=== PATIENT | male | born 1960 | race Caucasian/White ===

== ENCOUNTER 2020-01-10 01:51 | Inpatient (IN) | payer BC, SELFPAY ==
[2020-01-10] VITALS (15 sets, daily range): BP systolic 93–144; BP diastolic 60–81; PULSE 65–94; RESP 16–20; TEMP 36.3–38; O2SAT 93–100; BMI 32.9
--- NOTE | ~2020-01-10 | CT_ITS ---
EXAMINATION: CT brain wo con EXAM DATE: 01/10/2020 14:50 INDICATION: Persistent headache for 3 days. TECHNIQUE: Spiral CT of the head was performed without contrast. Axial, coronal and sagittal images were reviewed. The dose-length product (DLP) for this examination was 605.33 mGy-cm. The exposure w as tailored according to patient size, and iterative reconstruction (ASIR) was used as additional dos e reduction technique. There is no prior study for comparison. FINDINGS: There is no acute intraparenchymal hemorrhage. No evidence of intraparenchymal brain mass lesion. No evidence of acute infarction. There is no mass effect or midline shift. The ventricles are normal in size. There are no extra-axial collections. There are no acute calvarial fractures. T he orbits are unremarkable. Soft tissue is unremarkable. The visualized sinuses and mastoid air vincenzo ls are well aerated. IMPRESSION: 1. No acute intracranial findings. Reviewed, dictated and finalized at location B. CAL PARASITOLOGIST
--- NOTE | ~2020-01-10 | XR_ITS ---
EXAMINATION: XR chest 2V DATE: 01/11/2020 09:40 INDICATION: Cough TECHNIQUE: PA and lateral views of the chest are obtained. COMPARISON: 01/10/2020 FINDINGS: Right basilar airspace opacities have improved. There is no pleural effusion or pneumothora x. The cardiomediastinal silhouette is normal. There is mild thoracic spondylosis. IMPRESSION: 1. Improving airspace opacities of the right lower lung zone, consistent with resolving atelectasis o r pneumonia. Reviewed, dictated and finalized at location A. CONSERVATIONIST IMPRESSION: 1. Improving airspace opacities of the right lower lung zone, consistent with r esolving atelectasis or pneumonia.
--- NOTE | ~2020-01-10 | XR_ITS ---
EXAMINATION: XR chest 1V portable DATE: 01/10/2020 04:28 INDICATION: Cough and fever. TECHNIQUE: A single frontal view of the chest was obtained. COMPARISON: None. FINDINGS: There are mild airspace opacities in right lower lung zone. No pleural effusion or pneumoth orax. The heart size is normal. IMPRESSION: 1. Mild airspace opacities in right lower lung zone, consistent with atelectasis versus pneumonia. Reviewed, dictated and finalized at location A. EMENTATION ADVISOR IMPRESSION: 1. Mild airspace opacities in right lower lung zone, consistent with atelectasi s versus pneumonia.
--- NOTE | 2020-01-10 02:21 | ED.GENADULT ---
HPI - General Adult General Chief complaint: Unspecified Stated complaint: cant sleep Source: patient Mode of arrival: ambulatory Limitations: no limitations History of Present Illness HPI narrative: This 59-year-old male became ill the evening of 01/07 with insomnia,dull frontal headache, fever, cough, rhinorrhea, chills, insomnia, abdominal pain, nausea, and myalgias. He was exposed to influenza the day before the onset of his symptoms. Pt has not slept in 3 nights, c/o being desperate to sleep. Ibuprofen has not relieved his symptoms. He describes his headache as massive , close to the worst headache he's ever had. There are no associated symptoms of photophobia or neck pain. He has no hx of recurrent headaches. His cough has a barky quality, is unproductive and assoc. with feeling SOB. OTC cold medicines have not helped.He has no hx of asthma. His nausea has kept him for eating and drinking. There has been no vomiting. He has had trouble getting even small sips of fluid. There have been several loose stools over the past few days. His temp has been measured at 101, but tactial temp has felt higher. Related Data Home Medications Medication Instructions Recorded Confirmed atorvastatin 10 mg PO DAILY 01/10/20 01/10/20 levothyroxine 125 mcg PO DAILY 01/10/20 01/10/20 tamsulosin 0.4 mg PO DAILY 01/10/20 01/10/20 Allergies Allergy/AdvReac Type Severity Reaction Status Date / Time No Known Allergies Allergy Verified 02/10/18 16:09 Review of Systems Constitutional: Constitutional: Reports no additional constitutional complaints ENT: Reports system reviewed and no additional complaints, except as documented Cardiovascular: Cardiovascular: Denies chest pain Respiratory: Respiratory: Reports dyspnea Gastrointestinal: Gastrointestinal: Denies heartburn Genitourinary: Genitourinary: Denies dysuria Musculoskeletal: Musculoskeletal: Denies arthralgias and Denies joint swelling Integumentary/Breasts: Skin/Breast: Denies rash Neurologic: Reports system reviewed and no additional complaints, except as documented Psychiatric: Psychiatric: Denies anxiety and Denies depression Hematologic/Lymphatic: Hematologic/Lymphatic: Denies easy bleeding Allergic/Immunologic: Comments: no seasonal rhinorrhea PMFSH Past Medical History Medical History (Updated 01/10/20 @ 05:57 by Alphonse Wallis MD) Carpal tunnel syndrome Hyperlipidemia Social History Social History (Updated 01/10/20 @ 05:45 by Alphonse Wallis MD) Smoking status: Never smoker Gender identity (if verbalized by the patient): Male Exam Narrative: Exam Narrative: Laying on his side appears to be in pain. Const: General: No diaphoretic Orientation/consciousness: patient oriented x3 Limitations: No altered mental status HENMT: General nose exam: Nasal discharge present Face and sinus: no sinus tenderness Mouth: Yes Normal oral and palatal mucosa present and Yes moist mucous membranes Eyes: Conjunctivae: conjunctivae normal Neck: Neck: no lymphadenopathy Resp: Auscultation: clear to auscultation bilaterally and no rales Cardio: Rhythm: regular rhythm GI: GI Palp: Yes Soft to palpation, No Guarding due to palpation present (GI), No Palpable mass present and No Rebound tenderness present : General: No no CVA tenderness Skin: Rashes: no rashes Neuro: General: patient oriented x3 Extrem: General: normal to inspection and no pedal edema Psych: Affect: Anxious affect present Thought content: Yes Normal thought content present Course Course Emergency Course: Less coughing after nebulized albuterol treatment. After second neb tx. lungs sounds improved. Rales heard in both mid-posterior lung reyes. C/o 8/10 headache, 10/10 mid-abdominal cramping pain which gets worse with coughing. Influenza A positive. Vital Signs Vital signs: Vital Signs Temperature 38.0 C H 01/10/20 01:51 Pulse Rate 92 01/10/20 01:51 Respira
[2020-01-10] MEDS: SODIUM CHLORIDE 0.9% IV 1,000 ML 999 ML IV CONT ×3 (02:32→03:56)
[2020-01-10] MEDS: KETOROLAC 30 MG/ML VIAL (*BKC) IV PUSH (02:33)
[2020-01-10] MEDS: IPRATROPIUM 0.5 MG/ALBUTEROL SULFATE 2.5 MG AMPUL.NEB 3 ML INHALATION ×5 (02:33→23:52)
[2020-01-10] MEDS: ONDANSETRON INJ 4 MG/2 ML VIAL IV PUSH ×2 (02:33→12:05)
[2020-01-10 02:35] LABS: Basophils Absolute Auto 0.03 K/mm3 (0.00-0.10); Basophils Percent Auto 0.4 % (0.0-1.0); Eosinophils Absolute Auto 0.05 K/mm3 (0.02-0.50); Eosinophils Percent Auto 0.7 % (1.0-6.0); Hematocrit 49.6 % (40.0-54.0); Hemoglobin 16.6 g/dL (14.0-18.0); Immature Granulocyte Absolute 0.02 K/mm3 (0.00-0.00); Immature Granulocyte Percent A 0.3 % (0.0-0.0); Lymphocytes Absolute Auto 1.17 K/mm3 (1.10-4.50); Lymphocytes Percent Auto 15.8 % (18.0-42.0); Mean Corpuscular HGB Conc 33.5 g/dL (32.0-36.0); Mean Corpuscular Volume 89.5 fL (78.0-102.0); Mean Platelet Volume 10.3 fl (8.7-11.0); Monocytes Absolute Auto 0.85 K/mm3 (0.10-0.90); Monocytes Percent Auto 11.5 % (2.0-11.0); Neutrophils Absolute Auto 5.3 K/mm3 (1.7-7.2); Neutrophils Percent Auto 71.3 % (50.0-70.0); Platelet Count Result 180 K/mm3 (150-420); Red Blood Count 5.54 M/mm3 (4.70-6.10); Red Cell Distribution Width 12.9 % (11.6-14.4); White Blood Count 7.4 K/mm3 (4.8-10.8)
[2020-01-10 02:53] LABS: Alanine Aminotransferase 45 U/L (16-63); Albumin Level 3.4 g/dL (3.4-5.0); Alkaline Phosphatase 52 U/L (46-116); Anion Gap 14.4 mmol/L (7-16); Aspartate Amino Transferase 34 U/L (15-37); Bilirubin,Total 0.5 mg/dL (0.00-1.00); Blood Urea Nitrogen 23 mg/dL (7-18); Calcium 8.1 mg/dL (8.5-10.1); Carbon Dioxide 26 mmol/L (21-32); Chloride 101 mmol/L (98-108); Estimated Glomerular Filt Rate > 60; Glucose 129 mg/dL (70-99); Osmolality Calculated 291 mOsm/kg (285-295); Potassium 3.4 mmol/L (3.5-5.1); Sodium 138 mmol/L (136-145); Total Protein 7.1 g/dL (6.4-8.2)
[2020-01-10 03:07] LABS: Influenza Control Valid (Valid)
[2020-01-10] MEDS: FAMOTIDINE 20 MG/ISO 50 ML 20 MG/50 ML BAG 100 MG IVPB (03:10)
--- NOTE | 2020-01-10 03:10 | PC.NURSE ---
Read back verbal order Dr Wallis: Repeat Zofran 4mg IVP at this time.
[2020-01-10] MEDS: ONDANSETRON INJ 4 MG/2 ML VIAL (03:15)
--- NOTE | 2020-01-10 03:38 | PC.NURSE ---
Dr Riggs speaking with Dr Wallis at this time per [facility] hospitalist request.
[2020-01-10] MEDS: MORPHINE SULFATE 4 MG/ML INJ IV PUSH (03:56)
[2020-01-10] MEDS: LORAZEPAM INJ 2 MG/ML VIAL 0.5 MG IV PUSH (03:56)
[2020-01-10 04:07] LABS: Lipase 163 U/L (73-393)
[2020-01-10] MEDS: methylPREDNISolone SOD SUCC 40 MG VIAL 60 MG IV PUSH (04:52)
--- NOTE | 2020-01-10 04:57 | PC.NURSE ---
Pt sitting on gurney talking with . Appears relaxed. NADN. VSS. When asked about pain, pt states pain is unchanged. Dr Wallis aware.
--- NOTE | 2020-01-10 06:14 | ADMGEN ---
This patient, Neal Payne, was admitted to 2nd Floor Room 209-1. Patient/family oriented to hospital policies and general routines including ID bracelet, bed and alarms, visiting hours, pain management, procedures, bathroom and other care routines, personal items, smoking policy, room service/diet, and visiting hours. Valuables include glasses, gold colored ring and cell phone. Information on how to activate the Rapid Response Team has been discussed. Patient/Family are encouraged to report perceived risks to care and to ask questions if they do not understand what they are told or what they should do.
[2020-01-10] MEDS: LEVOTHYROXINE SODIUM 25 MCG TABLET 125 MCG PO (06:37)
--- NOTE | 2020-01-10 06:57 | ED.GENADULT ---
HPI - General Adult General Chief complaint: Unspecified Stated complaint: cant sleep Source: patient Mode of arrival: ambulatory Limitations: no limitations Related Data Home Medications Medication Instructions Recorded Confirmed atorvastatin 10 mg PO DAILY 01/10/20 01/10/20 levothyroxine 125 mcg PO DAILY 01/10/20 01/10/20 tamsulosin 0.4 mg PO DAILY 01/10/20 01/10/20 Allergies Allergy/AdvReac Type Severity Reaction Status Date / Time No Known Allergies Allergy Verified 02/10/18 16:09 [facility] Past Medical History Medical History (Updated 01/10/20 @ 05:57 by Alphonse Wallis MD) Carpal tunnel syndrome Hyperlipidemia Social History Social History (Updated 01/10/20 @ 05:45 by Alphonse Wallis MD) Smoking status: Former smoker Tobacco type: cigarettes Alcohol intake: former Substance use: never Gender identity (if verbalized by the patient): Male Spiritual care concerns: No Agree to blood products: No Course Vital Signs Vital signs: Vital Signs Temperature 38.0 C H 01/10/20 01:51 Pulse Rate 92 01/10/20 01:51 Respiratory Rate 20 01/10/20 01:51 Blood Pressure 128/77 01/10/20 01:51 Pulse Oximetry 94 01/10/20 01:51 Temperature 36.7 C 01/10/20 06:28 Pulse Rate 90 01/10/20 06:28 Respiratory Rate 20 01/10/20 06:28 Blood Pressure 112/71 01/10/20 06:28 Pulse Oximetry 96 01/10/20 06:28 Medical Decision Making Vital Signs Vital Signs: Vital Signs Temperature 38.0 C H 01/10/20 01:51 Pulse Rate 92 01/10/20 01:51 Respiratory Rate 20 01/10/20 01:51 Blood Pressure 128/77 01/10/20 01:51 Pulse Oximetry 94 01/10/20 01:51 Temperature 36.7 C 01/10/20 06:28 Pulse Rate 90 01/10/20 06:28 Respiratory Rate 20 01/10/20 06:28 Blood Pressure 112/71 01/10/20 06:28 Pulse Oximetry 96 01/10/20 06:28 Lab Data Result diagrams: 01/10/20 02:31 01/10/20 02:31 Labs: Lab Results 01/10/20 01/10/20 01/10/20 Range/Units 02:31 02:31 02:31 WBC 7.4 (4.8-10.8) K/mm3 RBC 5.54 (4.70-6.10) M/mm3 Hgb 16.6 (14.0-18.0) g/dL Hct 49.6 (40.0-54.0) % MCV 89.5 (78.0-102.0) fL MCH 30.0 (27.0-31.0) pg MCHC 33.5 (32.0-36.0) g/dL RDW 12.9 (11.6-14.4) % Plt Count 180 (150-420) K/mm3 MPV 10.3 (8.7-11.0) fl Immature Gran % (Auto) 0.3 H (0.0-0.0) % Neut % (Auto) 71.3 H (50.0-70.0) % Lymph % (Auto) 15.8 L (18.0-42.0) % [place] % (Auto) 11.5 H (2.0-11.0) % Eos % (Auto) 0.7 L (1.0-6.0) % Baso % (Auto) 0.4 (0.0-1.0) % Lymph # (Auto) 1.17 (1.10-4.50) K/mm3 [place] # (Auto) 0.85 (0.10-0.90) K/mm3 Eos # (Auto) 0.05 (0.02-0.50) K/mm3 Baso # (Auto) 0.03 (0.00-0.10) K/mm3 Abs Immat Gran (auto) 0.02 H (0.00-0.00) K/mm3 Absolute Neuts (auto) 5.3 (1.7-7.2) K/mm3 Absolute Nucleated RBC 0.00 (0.00-0.00) K/mm3 Nucleated RBC % 0.0 (0-0.0) % Sodium 138 (136-145) mmol/L Potassium 3.4 L (3.5-5.1) mmol/L Chloride 101 (98-108) mmol/L Carbon Dioxide 26 (21-32) mmol/L Anion Gap 14.4 (7-16) mmol/L BUN 23 H (7-18) mg/dL Creatinine 1.17 (0.70-1.30) mg/dL Estim Creat Clear Calc Not Reportable Estimated GFR > 60 (59 - ) Glucose 129 H (70-99) mg/dL Calculated Osmolality 291 (285-295) mOsm/kg Lactic Acid (0.4-2.0) mmol/L Calcium 8.1 L (8.5-10.1) mg/dL Total Bilirubin 0.5 (0.00-1.00) mg/dL AST 34 (15-37) U/L ALT 45 (16-63) U/L Alkaline Phosphatase 52 (46-116) U/L Total Protein 7.1 (6.4-8.2) g/dL Albumin 3.4 (3.4-5.0) g/dL Lipase (73-393) U/L Influenza Type A Ag Positive A (Negative) Influenza Type B Ag Negative (Negative) Grp A Beta Strep Ag Negative 01/10/20 01/10/20 Range/Units 02:31 02:31 WBC (4.8-10.8) K/mm3 RBC (4.70-6.10) M/mm3 Hgb (14.0-18.0) g/dL Hct (40.0-54.0) % MCV (78.0-102.0) fL MCH
--- NOTE | 2020-01-10 07:30 | PC.NURSE ---
NS@100ml/hr started. Instructed patient to sit up, better inflammation of lungs. Denies abd pain. PRN tylenol given for headache. 100%RA
[2020-01-10] MEDS: SODIUM CHLORIDE 0.9% IV 1,000 ML 100 ML IV CONT (07:48)
[2020-01-10] MEDS: ACETAMINOPHEN 500 MG TABLET 1000 MG PO (07:48)
--- NOTE | 2020-01-10 08:30 | PC.NURSE ---
NS@100ml/hr continues. Denies abd pain
[2020-01-10] MEDS: POTASSIUM CHLORIDE 10 MEQ TABLET PO ×2 (08:57→16:14)
[2020-01-10] MEDS: ATORVASTATIN 10 MG TABLET PO (08:57)
[2020-01-10] MEDS: TAMSULOSIN HCL 0.4 MG CAPSULE PO (08:57)
[2020-01-10] MEDS: ENOXAPARIN 40 MG/0.4 ML SYRINGE SUB-Q (08:57)
[2020-01-10] MEDS: PANTOPRAZOLE SODIUM IV 40 MG VIAL IV PUSH ×2 (08:58→10:35)
--- NOTE | 2020-01-10 09:08 | PC.NURSE ---
Instructed patient to sit up as much as possible. Pneumonia diagnosis need to be up moving around. Patient sat up for breakfast went back to bed. Ambulated to restroom x2. Gait steady. in room.
--- NOTE | 2020-01-10 09:30 | PC.NURSE ---
[id number] continued. C/O headache. Notified Rachel Mathur YARN PREPARATION SUPERVISOR. Denies abd pain.
[2020-01-10] MEDS: methylPREDNISolone SOD SUCC 125 MG VIAL 60 MG IV PUSH ×2 (10:34→20:12)
[2020-01-10] MEDS: TRAMADOL HCL 50 MG TABLET PO ×2 (10:34→20:13)
--- NOTE | 2020-01-10 10:56 | PC.NURSE ---
Solumedrol given. NS@100ml/hr continued. New order for Tramadol for headache, IV antibiotics started. Denies abd pain.
--- NOTE | 2020-01-10 13:50 | PM.IMHP ---
H&P: HPI History of Present Illness Chief complaint: cant sleep Narrative: Neal Payne is a 59 year old male that presented to the ED with complaints of frontal headache, fever, cough, chills, Shortness of breathinsomnia pain, nausea and rhinorrhea. he has a past medical history of hyperlipidemia, hypothyroidism, and carpal tunnel syndrome. According to patient's he was exposed to influenza a few days before his onset of symptoms. Patient has had insomnia 3 nights due to symptoms. while he was at home he did take ibuprofen and [id number] cold medicine with no relief. He does rate his headache at 10/10. He does not have a history of having headaches. patient does note that he has a productive cough with yellowish sputum and his throat continues to be sore. vital signs 37.0, 82, 60, 100% on room air blood pressure 122/74. while patient was in the ER he tested positive for influenza a and his chest x-ray is positive for pneumonia. Patient was started on azithromycin and Rocephin, steroids, and nebulizers.Patient denies SOB, CP, palpitation, extremity numbness, lightheadness, dizziness, constipation, diarrhea, or chills or fever. Review of Systems Review of Systems: Narrative: General: A well-developed, well-nourished male sitting up in bed no acute distress. HEENT: Normocephalic, atraumatic. PERRL, EOMI. Sclerae anicteric. Oral mucosa moist. Oropharynx clear. Neck: Supple. Cardiovascular: Regular rate and rhythm with S1-S2. Gastrointestinal: Abdomen is soft, nontender, and nondistended with positive bowel sounds. No organomegaly. Skin: Warm, dry, and slightly pale.. No rash or lesions on limited exam. Extremities: No cyanosis, clubbing, or edema. Radial and pedal pulses intact. Neurological: Alert. Cranial nerves 2-12 are grossly intact. No gross focal deficits to casual conversation. Psychiatric: Pleasant and cooperative with normal mood and affect. Judgment and insight intact. All systems reviewed & are unremarkable except as noted in HPI and below ENT: Denies vertigo, Denies dizziness, Reports headache(s) and Reports sore throat Respiratory: Respiratory: Reports chest congestion, Reports cough, Denies hemoptysis and Denies dyspnea PMFSH Past Medical History Medical History (Updated 01/10/20 @ 05:57 by Alphonse Wallis MD) Carpal tunnel syndrome Hyperlipidemia Social History Social History (Updated 01/10/20 @ 05:45 by Alphonse Wallis MD) Smoking status: Former smoker Tobacco type: cigarettes Alcohol intake: former Substance use: never Gender identity (if verbalized by the patient): Male Spiritual care concerns: No Agree to blood products: No Meds Home Medications and Allergies Home Medications Medication Instructions Recorded Confirmed Type albuterol sulfate 2 puff INHALATION QID PRN #6.7 gm 01/10/20 Rx atorvastatin 10 mg PO DAILY 01/10/20 01/10/20 History levothyroxine 125 mcg PO DAILY 01/10/20 01/10/20 History pantoprazole 40 mg PO QAM #14 tablet 01/10/20 Rx prednisone 40 mg PO DAILY 5 Days #10 tablet 01/10/20 Rx tamsulosin 0.4 mg PO DAILY 01/10/20 01/10/20 History Allergies Allergy/AdvReac Type Severity Reaction Status Date / Time No Known Allergies Allergy Verified 02/10/18 16:09 Vital Signs Vital Signs - 24 hr 01/10/20 01:51 01/10/20 03:54 01/10/20 04:53 Temperature 38.0 C H Pulse Rate 92 84 82 Respiratory Rate 20 20 20 Blood Pressure 128/77 114/63 Pulse Oximetry 94 93 01/10/20 04:58 01/10/20 05:18 01/10/20 05:25 Temperature Pulse Rate 82 90 93 Respiratory Rate 18 20 20 Blood Pressure 109/62 122/67 Pulse Oximetry 100 96 96 01/10/20 06:28 01/10/20 08:00 01/10/20 12:00 Temperature 36.7 C 37.0 C 36.3 C L Pulse Rate 90 82 85 Respiratory Rate 20 16 18 Blood Pressure 112/71 122/74 138/77 Pulse Oximetry 96 100 95 01/10/20 12:35 01/10/20 12:42 Temperature Pulse Rate 70 70 Respiratory Rate 16 16 Blood Pressure
--- NOTE | 2020-01-10 14:06 | PC.NURSE ---
Patient transported off of floor for CT scan
--- NOTE | 2020-01-10 14:22 | PC.NURSE ---
Patient transported back to floor, via wheelchair
[2020-01-10] MEDS: BENZONATATE 100 MG CAPSULE 200 MG PO (16:14)
[2020-01-10] MEDS: TEMAZEPAM 15 MG CAPSULE PO (20:13)
[2020-01-10] MEDS: OSELTAMIVIR PHOSPHATE 75 MG CAP PO (20:14)
[2020-01-11] VITALS (7 sets, daily range): BP systolic 104–130; BP diastolic 57–74; PULSE 58–76; RESP 16–18; TEMP 36.2–36.6; O2SAT 93–96
--- NOTE | 2020-01-11 00:30 | PC.NURSE ---
pt given fresh ice water, ice cream and a Popsicle, denies any complaints at this time
[2020-01-11] MEDS: methylPREDNISolone SOD SUCC 125 MG VIAL 60 MG IV PUSH ×3 (04:01→20:54)
[2020-01-11 05:34] LABS: Mean Corpuscular HGB Conc 33.3 g/dL (32.0-36.0); Mean Corpuscular Hemoglobin 29.9 pg (27.0-31.0); Mean Corpuscular Volume 89.6 fL (78.0-102.0); Platelet Count Result 188 K/mm3 (150-420); Red Blood Count 4.69 M/mm3 (4.70-6.10); Red Cell Distribution Width 12.9 % (11.6-14.4); White Blood Count 12.2 K/mm3 (4.8-10.8)
[2020-01-11] MEDS: LEVOTHYROXINE SODIUM 25 MCG TABLET 125 MCG PO (05:59)
[2020-01-11 06:01] LABS: Blood Urea Nitrogen 23 mg/dL (7-18); Calcium 8.1 mg/dL (8.5-10.1); Carbon Dioxide 25 mmol/L (21-32); Chloride 105 mmol/L (98-108); Estimated CRCL calculation 80 ml/min; Estimated Glomerular Filt Rate > 60; Glucose 157 mg/dL (70-99); Osmolality Calculated 300 mOsm/kg (285-295); Sodium 142 mmol/L (136-145)
[2020-01-11] MEDS: ONDANSETRON INJ 4 MG/2 ML VIAL IV PUSH (06:49)
--- NOTE | 2020-01-11 09:10 | PC.NURSE ---
Patient taken down to xray to have chest xray via wheelchair by volunteer.
--- NOTE | 2020-01-11 09:25 | PC.NURSE ---
Patient back to room from xray.
[2020-01-11] MEDS: ENOXAPARIN 40 MG/0.4 ML SYRINGE SUB-Q (09:56)
[2020-01-11] MEDS: PANTOPRAZOLE SODIUM IV 40 MG VIAL IV PUSH (09:56)
[2020-01-11] MEDS: ATORVASTATIN 10 MG TABLET PO (09:57)
[2020-01-11] MEDS: TAMSULOSIN HCL 0.4 MG CAPSULE PO (09:57)
[2020-01-11] MEDS: BENZONATATE 100 MG CAPSULE 200 MG PO ×3 (09:57→17:26)
[2020-01-11] MEDS: OSELTAMIVIR PHOSPHATE 75 MG CAP PO ×2 (09:57→20:55)
[2020-01-11] MEDS: POTASSIUM CHLORIDE 10 MEQ TABLET PO ×2 (09:57→17:26)
[2020-01-11] MEDS: PROCHLORPERAZINE EDISYLATE 10 MG/2 ML VIAL IV PUSH (10:26)
--- NOTE | 2020-01-11 11:00 | PC.NURSE ---
Patient had episode of anxiety/panic attack. N.O. Received for ativan IVP. This nurse went to go give patient ativan, patient states he thinks the anxiety has passed and he is okay now. States he doesnt want any medication. Nurse notified patient if he starts feeling anxious again to let her know and she can give ativan.
[2020-01-11] MEDS: ACETAMINOPHEN 500 MG TABLET 1000 MG PO (11:24)
--- NOTE | 2020-01-11 14:12 | PM.IMPN ---
Progress Note: A&P Assessment and Plan (1) Pneumonia: Qualifiers: Laterality: right Lung location: middle lobe of lung Pneumonia type: due to unspecified organism Qualified Code(s): J18.9 - Pneumonia, unspecified organism <KADI Dougherty - Last Filed: 01/11/20 14:20> Code(s): J18.9 - Pneumonia, unspecified organism <KIMBERLEY DoughertyC - Last Filed: 01/11/20 14:20> Status: Acute <KIMBERLEY DoughertyC - Last Filed: 01/11/20 14:20> Assessment and Plan: chest x-ray indicates 1. Mild airspace opacities in right lower lung zone, consistent with atelectasis versus pneumonia. continue antibiotic Rocephin and azithromycin blood culture pending white count within normal limits patient afebrile at this time continue cough suppressors, and decongestant. continue to monitor oxygen level CBC in a.m. <KADI Dougherty - Last Filed: 01/11/20 14:20> (2) Headache due to viral infection: Code(s): B34.9 - Viral infection, unspecified; R51 - Headache <KADI Dougherty - Last Filed: 01/11/20 14:20> Status: Acute <KADI Dougherty - Last Filed: 01/11/20 14:20> Assessment and Plan: resolved possibly secondary to influenza or pneumonia continue Tylenol, tramadol, [place], p.r.n. CT of the head No acute intracranial findings. will continue to monitor <KADI Dougherty - Last Filed: 01/11/20 14:20> (3) Hyperlipidemia: Code(s): E78.5 - Hyperlipidemia, unspecified <KADI Dougherty - Last Filed: 01/11/20 14:20> Status: Acute <KADI Dougherty - Last Filed: 01/11/20 14:20> Assessment and Plan: continue statins <SHAYY Dougherty-Kesha - Last Filed: 01/11/20 14:20> (4) Influenza A: Code(s): J10.1 - Influenza due to other identified influenza virus with other respiratory manifestations <Rachel MathurSHAYY-C - Last Filed: 01/11/20 14:20> Status: Acute <Rachel MathurSHAYY-C - Last Filed: 01/11/20 14:20> Assessment and Plan: tested positive for influenza a continue Tamiflu continue nebulizers, decongestants, and cough suppressants <Kumarkian StanleySHAYY Sutton-C - Last Filed: 01/11/20 14:20> (5) Dehydration: Code(s): E86.0 - Dehydration <Rachel MathurSHAYY-C - Last Filed: 01/11/20 14:20> Status: Acute <Rachel MathurSHAYY-C - Last Filed: 01/11/20 14:20> Assessment and Plan: continue IV fluids encourage fluid intake BMP in a.m. <Kumarkian StanleySHAYY Sutton-C - Last Filed: 01/11/20 14:20> (6) Hypothyroid: Code(s): E03.9 - Hypothyroidism, unspecified <Rachel Rivera SHAYY Mathur-C - Last Filed: 01/11/20 14:20> Status: Acute <Rachel AngelSHAYY Sutton-C - Last Filed: 01/11/20 14:20> Assessment and Plan: continue Synthroid <Kumarkian StanleySHAYY Sutton-C - Last Filed: 01/11/20 14:20> (7) Nausea: Code(s): R11.0 - Nausea <Rachel AngelSHAYY Sutton-C - Last Filed: 01/11/20 14:20> Status: Acute <Rachel AngelSHAYY Sutton-C - Last Filed: 01/11/20 14:20> Assessment and Plan: has not improved continue Zofran and Compazine <Kumarkian StanleySHAYY Sutton-C - Last Filed: 01/11/20 14:20> (8) Anxiety: Code(s): F41.9 - Anxiety disorder, unspecified <HSAYY Dougherty-C - Last Filed: 01/11/20 14:20> Status: Acute <Rachel KADI Sharma - Last Filed: 01/11/20 14:20> Assessment and Plan: continue p.r.n. Ativan <KADI Dougherty - Last Filed: 01/11/20 14:20> Subjective Date/time seen: 01/11/20 14:12 patient continues to complain of nausea /vomiting added Compazine to his regimen. He also noted that he felt short of breath, patient sat's 100% on room air. Will add Ativan to patient's regimen. Patient's appear to be more anxious. Patient does not feel stable enough to discharge today lobo
[2020-01-11] MEDS: TEMAZEPAM 15 MG CAPSULE PO (20:55)
[2020-01-12] VITALS: BP 117/68; PULSE 70; RESP 20; TEMP 36.2; O2SAT 93
--- NOTE | 2020-01-12 00:54 | PC.NURSE ---
Voided in urinal.
[2020-01-12 04:00] VITALS: BP 130/75; PULSE 74; RESP 20; TEMP 36.6; O2SAT 95
[2020-01-12] MEDS: methylPREDNISolone SOD SUCC 125 MG VIAL 60 MG IV PUSH (04:06)
[2020-01-12 05:47] LABS: Hematocrit 44.1 % (40.0-54.0); Hemoglobin 14.7 g/dL (14.0-18.0); Mean Corpuscular HGB Conc 33.3 g/dL (32.0-36.0); Mean Corpuscular Hemoglobin 29.9 pg (27.0-31.0); Mean Corpuscular Volume 89.6 fL (78.0-102.0); Mean Platelet Volume 11.1 fl (8.7-11.0); Platelet Count Result 202 K/mm3 (150-420); Red Blood Count 4.92 M/mm3 (4.70-6.10); Red Cell Distribution Width 12.9 % (11.6-14.4); White Blood Count 13.7 K/mm3 (4.8-10.8)
[2020-01-12 05:55] LABS: Anion Gap 13.1 mmol/L (7-16); Blood Urea Nitrogen 25 mg/dL (7-18); Calcium 8.4 mg/dL (8.5-10.1); Carbon Dioxide 28 mmol/L (21-32); Chloride 104 mmol/L (98-108); Estimated CRCL calculation 89 ml/min; Estimated Glomerular Filt Rate > 60; Glucose 133 mg/dL (70-99); Osmolality Calculated 298 mOsm/kg (285-295); Potassium 4.1 mmol/L (3.5-5.1); Sodium 141 mmol/L (136-145)
[2020-01-12] MEDS: LEVOTHYROXINE SODIUM 25 MCG TABLET 125 MCG PO (06:23)
--- NOTE | 2020-01-12 07:40 | PC.NURSE ---
Patient resting in bed on right Shows no signs of distress. Breathing even and unlabored.
[2020-01-12 08:00] VITALS: BP 112/69; PULSE 64; RESP 18; TEMP 36.8; O2SAT 95
[2020-01-12] MEDS: TAMSULOSIN HCL 0.4 MG CAPSULE PO (10:12)
[2020-01-12] MEDS: PANTOPRAZOLE SODIUM IV 40 MG VIAL IV PUSH (10:12)
[2020-01-12] MEDS: OSELTAMIVIR PHOSPHATE 75 MG CAP PO (10:13)
[2020-01-12] MEDS: ATORVASTATIN 10 MG TABLET PO (10:13)
[2020-01-12] MEDS: BENZONATATE 100 MG CAPSULE 200 MG PO ×3 (10:13→17:02)
[2020-01-12] MEDS: ENOXAPARIN 40 MG/0.4 ML SYRINGE SUB-Q (10:13)
[2020-01-12] MEDS: POTASSIUM CHLORIDE 10 MEQ TABLET PO ×2 (10:13→17:02)
--- NOTE | 2020-01-12 11:40 | PC.NURSE ---
Patient sitting up in bed resting. Denies any needs at this time. Call light and belongings in reach.Pt aware he is to be discharged today. States his will be here at 1700 to pick patient up.
--- NOTE | 2020-01-12 13:08 | PM.DS ---
DS: Diagnosis Admitting Diagnosis Admitting Diagnosis: Pneumonia, unspecified organism , influenza a Discharge Diagnosis (1) Pneumonia: Qualifiers: Laterality: right Lung location: middle lobe of lung Pneumonia type: due to unspecified organism Qualified Code(s): J18.9 - Pneumonia, unspecified organism Code(s): J18.9 - Pneumonia, unspecified organism Status: Acute Assessment and Plan: chest x-ray indicates 1. Mild airspace opacities in right lower lung zone, consistent with atelectasis versus pneumonia. continue antibiotic for 7 days on discharge azithromycin and cefdinir blood culture preliminary no growth white count within normal limits patient afebrile on discharge discharge with cough suppressors, decongestant and tapered prednisone .m. (2) Headache due to viral infection: Code(s): B34.9 - Viral infection, unspecified; R51 - Headache Status: Acute Assessment and Plan: resolved possibly secondary to influenza or pneumonia CT of the head No acute intracranial findings. continue [id number] Tylenol (3) Hyperlipidemia: Code(s): E78.5 - Hyperlipidemia, unspecified Status: Acute Assessment and Plan: continue statins (4) Influenza A: Code(s): J10.1 - Influenza due to other identified influenza virus with other respiratory manifestations Status: Acute Assessment and Plan: tested positive for influenza a discharge with Tamiflu 4 days discharge withnebulizers, decongestants, and cough suppressants (5) Dehydration: Code(s): E86.0 - Dehydration Status: Acute Assessment and Plan: resolved (6) Hypothyroid: Code(s): E03.9 - Hypothyroidism, unspecified Status: Acute Assessment and Plan: continue Synthroid (7) Nausea: Code(s): R11.0 - Nausea Status: Acute Assessment and Plan: resolved discharge with Zofran (8) Anxiety: Code(s): F41.9 - Anxiety disorder, unspecified Status: Acute Assessment and Plan: discharged with a small amount of Ativan DS: Summary Hospital Course Reason for hospitalization: influenza a and community-acquired pneumonia Hospital Course: admitted 01/10 H&P note: Neal Payne is a 59 year old male that presented to the ED with complaints of frontal headache, fever, cough, chills, Shortness of breathinsomnia pain, nausea and rhinorrhea. he has a past medical history of hyperlipidemia, hypothyroidism, and carpal tunnel syndrome. According to patient's he was exposed to influenza a few days before his onset of symptoms. Patient has had insomnia 3 nights due to symptoms. while he was at home he did take ibuprofen and [id number] cold medicine with no relief. He does rate his headache at 10/10. He does not have a history of having headaches. patient does note that he has a productive cough with yellowish sputum and his throat continues to be sore. vital signs 37.0, 82, 60, 100% on room air blood pressure 122/74. while patient was in the ER he tested positive for influenza a and his chest x-ray is positive for pneumonia. Patient was started on azithromycin and Rocephin, steroids, and nebulizers.Patient denies SOB, CP, palpitation, extremity numbness, lightheadness, dizziness, constipation, diarrhea, or chills or fever. discharging on 01/12/2020 patient continues to have nonproductive cough. with improved chest congestion. his anxiety has decreased. he will discharge home with antibiotics, prednisone, cough suppressant, decongestion medication, antiviral medication, and anti anxiety medication. Patient able to tolerate all meals , slept well and ambulate at baseline. Patient denies SOB, CP, palpitation, extremity numbness, lightheadness, dizziness, constipation, diarrhea, or chills or fever. Patient agree that they are ready for discharge and discharge plan. Time Spent with Patient T
[2020-01-12] MEDS: CEFDINIR 300 MG CAPSULE PO (14:13)
[2020-01-12] MEDS: AZITHROMYCIN 250 MG TABLET 500 MG PO (14:13)
--- NOTE | 2020-01-12 14:40 | PC.NURSE ---
Patient took all medication with no issues. Resting in bed with hob elevated. Patient states that he is feeling fine. Denies any needs at present. Call light at side.
[2020-01-12 16:20] VITALS: BP 149/79; PULSE 72; RESP 16; TEMP 36.7; O2SAT 94
[2020-01-12] MEDS: predniSONE 20 MG TABLET 60 MG PO (17:02)
--- NOTE | 2020-01-12 17:05 | PC.NURSE ---
All discharge instructions and education reviewed with patient. Patient states understanding. IV site removed, tip intact. Dressing applied to site. Nurse discussed with patient all the medications he has ordered at discharge. Pt. denies any questions. Patient gathered all belongings together, all belongings sent home with patient. Patients here to pick patient up. Patient left ambulatory with . Denies questions at discharge.
--- NOTE | 2020-01-12 23:22 | PM.EVENT ---
Event Note Event Note Event Note: Patient states he feels better today and has been able to tolerate some orals. He denies chest pain and states that his shortness breath is much better. Alert and oriented x3. Patient has clear lungs to auscultation without rales, rhonchi or wheezing. Regular rate and rhythm without murmur rub or gallop. Distal pulses are full and symmetric instrument is warm. Home today on oral antibiotics and antivirals. I have reviewed the chart and examine the patient. I discussed the patient's care with Grayson Mathur APN and agree with her assessment and plan.
--- NOTE | 2020-01-16 13:55 | PC.NURSE ---
Discharge call back [phone] No answer, left a message
== END 2020-01-12 17:05 | disposition home or self-care (01) | DRG 195 ==
LOC: CHSED 04:19 → CHS2ND 05:28
PROVIDERS: Nurse Practitioner; Admitting Provider Family Medicine; Emergency Provider Family Medicine; Visit Provider Family Medicine
DX: J10.00 Influenza due to other identified influenza virus with unspecified type of pneumonia (principal); E86.0 Dehydration; E78.5 Hyperlipidemia, unspecified; E03.9 Hypothyroidism, unspecified; R11.2 Nausea with vomiting, unspecified
CPT/HCPCS: 36415; 70450; 71045; 71046; 80048; 80053; 83605; 83690; 85025; 85027; 87040; 87081; 87804; 87880; 94640; 96361; 96365; 96367; 96372; 96374; 96375; 96376; 99285; A9270; C9113; G0378; J0456; J0696; J0780; J1650; J1885; J2060; J2270; J2405; J2920; J2930; J7030; J7512

== ENCOUNTER 2020-01-16 13:29 | Emergency (ER) | payer BC, SELFPAY ==
--- NOTE | ~2020-01-16 | XR_ITS ---
EXAMINATION: XR chest 2V DATE: 01/16/2020 15:32 INDICATION: Cough and fever. TECHNIQUE: Frontal and lateral views of the chest were obtained. COMPARISON: Chest 2 views 01/11/2020 FINDINGS: The chest demonstrates clear lungs without pneumonia, pleural effusion, or pneumothorax. Th e heart size is normal. IMPRESSION: 1. No acute cardiopulmonary disease. Reviewed, dictated and finalized at location A. [employer] ELECTRONIC RETAIL SPECIALIST
[2020-01-16 15:07] VITALS: BP 125/90; PULSE 76; RESP 18; TEMP 36.3; O2SAT 97
[2020-01-16 15:30] LABS: Basophils Percent Auto 0.1 % (0.2-1.2); Eosinophils Percent Auto 0.1 % (0-4.4); Hematocrit 50.8 % (42.0-52.0); Hemoglobin 17.2 g/dL (14.0-18.0); Immature Granulocyte Percent A 0.6 % (0-0.5); Lymphocytes Absolute Auto 2.15 K/mm3 (0.9-3.2); Lymphocytes Percent Auto 13.8 % (18.3-44.2); Mean Corpuscular HGB Conc 33.9 g/dl (32-36); Mean Corpuscular Hemoglobin 29.3 pg (26-34); Mean Corpuscular Volume 86.5 fl (80-100); Mean Platelet Volume 10.2 fl (7.4-10.4); Monocytes Absolute Auto 1.1 K/mm3 (0.1-0.6); Monocytes Percent Auto 6.8 % (2.6-8.5); Neutrophils Absolute Auto 12.2 K/mm3 (1.3-6.7); Neutrophils Percent Auto 78.6 % (45.5-73.1); Platelet Count Result 350 k/mm3 (150-375); Red Blood Count 5.87 M/mm3 (4.6-6.20); Red Cell Distribution Width 12.7 % (11.5-14.5); White Blood Count 15.5 K/mm3 (4.5-10.0)
[2020-01-16 15:40] LABS: Blood Urea Nitrogen 29 mg/dL (9-20); Calcium 8.7 mg/dL (8.4-10.2); Carbon Dioxide 23 mmol/L (22-30); Chloride 94 mmol/L (98-107); Estimated CRCL calculation 79 ml/min; Estimated Glomerular Filt Rate > 60; Glucose 139 mg/dL (75-110); Sodium 132 mmol/L (137-145)
--- NOTE | 2020-01-16 16:24 | ECG_ITS ---
Measurements Intervals [place] Rate: 58 P: 67 MI: 110 QRS: 35 QRSD: 86 T: -31 QT: 425 QTc: 420 Interpretive Statements SINUS BRADYCARDIA WITH SHORT MI INTERVAL BORDERLINE ST-T WAVE ABNORMALITY- DIFFUSE LEADS BASELINE ARTIFACT- I, II, AVR, AVL, AVF, V2-V4 BORDERLINE ECG Electronically Signed On 01-16-2020 20:10:19 SUPERVISORY CIVIL ENGINEER by Anup Vale D.O.
[2020-01-16 16:28] VITALS: BP 122/73; PULSE 61; RESP 17; O2SAT 98
[2020-01-16 16:45] LABS: Partial Thromboplastin Time 24.8 SECONDS (22.3-36.8)
[2020-01-16 16:47] LABS: Alanine Aminotransferase 93 U/L (4-50); Albumin Level 4.1 g/dL (3.5-5.1); Alkaline Phosphatase 52 U/L (38-126); Aspartate Amino Transferase 36 U/L (17-59); Bilirubin,Total 1.1 mg/dL (0.2-1.3); CRP < 0.5 mg/dL (<1.0); Lipase 120 U/L (23-300)
--- NOTE | 2020-01-16 16:48 | ED.WEAKNESS ---
HPI - Weakness General Chief complaint: Weakness Stated complaint: weakness, diag influenza A and pneumonia Time Seen by Provider: 01/16/20 16:07 Source: patient Mode of arrival: ambulatory Limitations: no limitations History of Present Illness HPI Narrative: This is a 59 year old male that presents to the ER for generalized weakness. Reports he was diagnosed with Influenza A about a week ago. Reports he was admitted to [facility] for this. He is on antibiotics, Tamiflu and a steroid. Reports he still is having headaches, nausea, and fatigue. Also reports some cough and congestion. Denies fever, abdominal pain, vomiting, diarrhea, dysuria or hematuria. Related Data Home Medications Medication Instructions Recorded Confirmed atorvastatin 10 mg PO DAILY 01/10/20 01/10/20 levothyroxine 125 mcg PO DAILY 01/10/20 01/10/20 tamsulosin 0.4 mg PO DAILY 01/10/20 01/10/20 Allergies Allergy/AdvReac Type Severity Reaction Status Date / Time No Known Allergies Allergy Verified 01/16/20 16:32 Review of Systems Review of Systems: Narrative: CONSTITUTIONAL: Denies fever, chills ENT: Reports rhinorrhea, congestion. Denies sore throat, or otalgia. CARDIOVASCULAR: Denies chest pain RESPIRATORY: Reports cough. Denies dyspnea. GASTROINTESTINAL: Reports nausea. Denies abdominal pain, vomiting, or diarrhea. GENITOURINARY: Denies dysuria or hematuria. NEUROLOGIC: Reports headache, weakness. All systems reviewed & are unremarkable except as noted in HPI and below PMFSH Past Medical History Medical History (Updated 01/16/20 @ 19:30 by Alycia Collins PA-C) Carpal tunnel syndrome History of hypothyroidism Hyperlipidemia Social History Social History (Updated 01/10/20 @ 05:45 by Alphones Wallis MD) Smoking status: Former smoker Tobacco type: cigarettes Alcohol intake: former Substance use: never Gender identity (if verbalized by the patient): Male Spiritual care concerns: No Agree to blood products: No Exam Narrative: Exam Narrative: GENERAL: Well-appearing, well-nourished, and in no acute distress. HEAD: Normocephalic, atraumatic. EYES: EOMI. ENT: Nares clear, no rhinorrhea or epistaxis. Mucous membranes moist. Oropharynx without tonsillar hypertrophy exudate or other lesions. Bilateral TMs pearly stevens non-bulging NECK: Supple. No adenopathy or masses. CHEST: Clear to auscultation. No respiratory distress. No wheezes rales or rhonchi HEART: Regular rate and rhythm. No murmur heard. Normal peripheral pulses. ABDOMEN: Soft, nontender, nondistended, normal active bowel sounds. EXTREMITIES: Normal range of motion. No edema. SKIN: Warm, dry, no rash. NEURO: No focal deficits. Alert and oriented x3. PSYCH: Normal mood and affect Course Vital Signs Vital signs: Vital Signs Temperature 97.3 F L 01/16/20 15:07 Pulse Rate 76 01/16/20 15:07 Respiratory Rate 18 01/16/20 15:07 Blood Pressure 125/90 01/16/20 15:07 Pulse Oximetry 97 01/16/20 15:07 Temperature 97.3 F L 01/16/20 15:07 Pulse Rate 71 01/16/20 18:08 Respiratory Rate 17 01/16/20 16:28 Blood Pressure 108/68 01/16/20 18:08 Pulse Oximetry 98 01/16/20 16:28 MDM - Weakness MDM Narrative Medical decision making narrative: Patient presents the emergency department for cold symptoms x1 week. Was diagnosed with influenza and admitted to [facility] for this. He was discharged on Tamiflu, antibiotics, and steroid. Reports when he first was discharged he was feeling better. Reports over the last couple days he has continued to feel weak, anxious, and have dry cough and headache. Patient is afebrile and nontoxic-appearing. Patient was orthostatic initially, he was hydrated with 2 L of IV fluids in the ED. Oxygen saturation is normal on room air. Lungs are clear on exam. CBC with leukocytosis to 15.5. He is on a steroid currently. Metabolic panel with evidence of dehydration. Lactic acid is normal. TSH is normal.
[2020-01-16] MEDS: SODIUM CHLORIDE 0.9% IV 1,000 ML 999 ML IV CONT ×2 (16:49→18:44)
[2020-01-16] MEDS: FAMOTIDINE 20 MG/2 ML VIAL IV PUSH (16:50)
[2020-01-16] MEDS: ONDANSETRON INJ 4 MG/2 ML VIAL IV PUSH (16:50)
[2020-01-16 17:03] LABS: Add Urine Microscopic? YES; Appearance Urine Clear (Clear); Bilirubin Urine Negative (Negative); Blood Urine Negative (Negative); Color Urine Yellow (Yellow); Glucose Urine UA Negative (Negative); Ketones Urine Trace mg/dL (Negative); Leukocyte Esterase Ur Trace LEU/UL (Negative); Mucus Urine Rare /lpf; Nitrate Urine Negative (Negative); Protein Urine Negative (Negative); RBC Urine 0-2 /hpf (0-2); Urobilinogen Urine Negative mg/dL (<2.0)
[2020-01-16 17:06] LABS: Specific Grav Ur 1.033 (1.001-1.035)
[2020-01-16 17:08] LABS: Lactic Acid Reflex 0.9 mmol/L (0.7-2.1)
[2020-01-16 18:06] VITALS: BP 118/92; BP 127/73; PULSE 55; PULSE 73
[2020-01-16 18:08] VITALS: BP 108/68; PULSE 71
== END 2020-01-16 19:36 | disposition home or self-care (01) ==
PROVIDERS: Physician Assistant; Emergency Provider Emergency Medicine
DX: J10.1 Influenza due to other identified influenza virus with other respiratory manifestations (principal); E03.9 Hypothyroidism, unspecified; E78.5 Hyperlipidemia, unspecified
CPT/HCPCS: 36415; 71046; 80048; 80076; 81001; 83605; 83690; 84443; 85025; 85610; 85730; 86140; 93005; 96361; 96365; 96375; 99284; J0131; J2405; J7030

== ENCOUNTER 2020-01-19 17:37 | Emergency (ER) | payer BC, SELFPAY ==
--- NOTE | ~2020-01-19 | CT_ITS ---
EXAMINATION: CT abdomen pelvis w con EXAM DATE: 01/19/2020 19:24 INDICATION: Low abdominal pain, nausea, symptoms 2 weeks. TECHNIQUE: Spiral CT of the abdomen and pelvis was performed following intravenous injection of 100 m L Omnipaque 350. Axial, coronal and sagittal images were reviewed. The dose-length product (DLP) fo r this examination was 1409.64 mGy-cm. The exposure was tailored according to patient size (auto mA exposure control), and iterative reconstruction (ASIR) was used as additional dose reduction techniqu e. There is no prior study for comparison. FINDINGS: There are 5 subcentimeter liver hypodensity statistically most likely cysts. Can't totally exclude metastatic disease. The spleen, pancreas, and adrenal glands are unremarkable. Gallbladder i s unremarkable. No biliary obstruction. Portal and splenic veins are patent. Kidneys enhance symme trically. There is no hydronephrosis. Right renal cyst measuring 1 cm. The prostate is unremarkable . The bladder is unremarkable. There is no retroperitoneal or pelvic lymphadenopathy. There is mi ld scattered arteriosclerotic disease. Small umbilical fat-containing hernia. The appendix is normal. There is duodenal bulb severe edema, mild adjacent fat stranding, consistent with peptic ulcer disease. There are 2 focal regions which could be ulcerations identified. No perfo ration or free intraperitoneal gas. There is expected amount of colonic stool. There is mild scatte red colonic diverticulosis. There is no adjacent inflammatory change to suggest diverticulitis. The heart is normal in size. There are no pericardial or pleural effusions. Scattered bibasilar pulmona ry nodules, most of which are peripheral, up to about 6 or 7 mm in size. Differential diagnosis inclu csar infection, post infectious residua, metastatic disease. There are no osteoblastic or osteolytic lesions identified. IMPRESSION: 1. Duodenal bulb peptic ulcer disease without perforation. 2. Scattered basilar pulmonary nodules, could be acute infection, post infectious, or less likely me tastatic disease. Recommend one-month follow-up low-dose chest CT. 3. Small umbilical hernia. 4. Mild scattered colonic diverticulosis. 5. Subcentimeter liver lesions, could be cysts but cannot totally exclude metastatic disease given t he lung nodules. Reviewed, dictated and finalized at location A. ING ANALYST IMPRESSION: 1. Duodenal bulb peptic ulcer disease without perforation. 2. Scattered basilar pulmonary nodules, could be acute infection, post infecti ous, or less likely metastatic disease. Recommend one-month follow-up low-dose chest CT. 3. Small umbilical hernia. 4. Mild scattered colonic diverticulosis. 5. Subcentimeter liver lesions, could be cysts but cannot totally exclude meta static disease given the lung nodules.
--- NOTE | ~2020-01-19 | XR_ITS ---
EXAMINATION: XR chest 2V EXAM DATE: 01/19/2020 19:24 INDICATION: Pneumonia. Cough. TECHNIQUE: Frontal and lateral projections of the chest obtained and reviewed. Comparison is made to prior examination from 01/16/2020. FINDINGS: Several small basilar pulmonary nodules suspected, but visualized on CT same date, without dense confluent consolidation. Cardiomediastinal silhouette is normal. There is no pneumothorax susp ected. There are no pleural effusions. There are no osseous abnormalities identified. IMPRESSION: Several small basilar nodular densities more likely infectious or postinfectious than met astatic; recommend one-month follow-up low-dose chest CT. Reviewed, dictated and finalized at location A. GHT FLAGMAN IMPRESSION: Several small basilar nodular densities more likely infectious or p ostinfectious than metastatic; recommend one-month follow-up low-dose chest CT.
[2020-01-19 18:17] VITALS: BP 111/54; PULSE 78; RESP 20; TEMP 36.8; O2SAT 98
[2020-01-19 18:26] LABS: Add Urine Microscopic? NO; Appearance Urine Clear (Clear); Bilirubin Urine Negative (Negative); Blood Urine Negative (Negative); Color Urine Yellow (Yellow); Glucose Urine UA Negative (Negative); Ketones Urine Negative (Negative); Leukocyte Esterase Ur Negative LEU/UL (Negative); Nitrate Urine Negative (Negative); Protein Urine Negative (Negative)
[2020-01-19 18:46] LABS: Basophils Absolute Auto 0.02 K/mm3 (0.00-0.10); Basophils Percent Auto 0.2 % (0.0-1.0); Eosinophils Percent Auto 1.9 % (1.0-6.0); Hematocrit 45.1 % (40.0-54.0); Hemoglobin 15.2 g/dL (14.0-18.0); Immature Granulocyte Absolute 0.04 K/mm3 (0.00-0.00); Immature Granulocyte Percent A 0.4 % (0.0-0.0); Lymphocytes Percent Auto 21.6 % (18.0-42.0); Mean Corpuscular HGB Conc 33.7 g/dL (32.0-36.0); Mean Corpuscular Hemoglobin 29.3 pg (27.0-31.0); Mean Corpuscular Volume 87.1 fL (78.0-102.0); Mean Platelet Volume 9.8 fl (8.7-11.0); Monocytes Absolute Auto 1.11 K/mm3 (0.10-0.90); Monocytes Percent Auto 10.4 % (2.0-11.0); Neutrophils Percent Auto 65.5 % (50.0-70.0); Platelet Count Result 325 K/mm3 (150-420); Red Blood Count 5.18 M/mm3 (4.70-6.10); Red Cell Distribution Width 12.4 % (11.6-14.4); White Blood Count 10.7 K/mm3 (4.8-10.8)
--- NOTE | 2020-01-19 18:59 | ED.ABDPAIN ---
HPI - Abdominal Pain General Chief Complaint: Abdominal Pain Stated Complaint: abdominal pain Time Seen by Provider: 01/19/20 18:15 Source: patient Mode of arrival: ambulatory History of Present Illness HPI narrative: Neal is a 59-year-old male patient. He presents ambulatory to the emergency room with his . His main complaint at the time of admission is abdominal pain. This has been going on for 2 weeks. He describes the pain as mainly in the mid abdomen. It is a crampy colicky type of pain. He states that this happens mainly in the night between to a.m. to 8:00 a.m. . This is not associated with vomiting or diarrhea. He says that he is usually okay during the daytime.There is no radiation of pain. There is no history of cough or fever. He denies any urinary symptoms. Neal was admitted to this hospital on 01/10/2020 with a diagnosis of pneumonia and influenza A. He was treated with antibiotics and Tamiflu. He was then discharged. The discharge date was 01/12/2020. He was then seen at [facility] on 01/16/2020. He had presented there with generalized weakness. At that time he had some nausea headache and fatigue. There was no fever and in that documentation it is written that his he denies abdominal pain vomiting diarrhea dysuria or hematuria. Neal is a former smoker. He has history of hypercholesterolemia, hypothyroidism, status post right inguinal hernia repair and status post right carpal tunnel release. He denies alcohol intake. Has history of BPH and takes tamsulosin. He does not drink alcohol. He denies any allergies. MD elicited complaint: abdominal pain Pertinent past history: other ( See HPI narrative for details) Onset (ago): week(s) ( 2 weeks) Pain Consistency: intermittent Location: other ( See HPI narrative for details) Severity: moderate Quality: cramping and sharp Radiation: none Migration to: no migration Exacerbating factors: nothing Relieving factors: nothing Context: confirms other ( no injury. No travel.) Associated symptoms: other ( Denies vomiting. Denies fever. Denies dysuria or hematuria. No hematemesis or melena) Related Data Home Medications Medication Instructions Recorded Confirmed atorvastatin 10 mg PO DAILY 01/10/20 01/19/20 levothyroxine 125 mcg PO DAILY 01/10/20 01/19/20 tamsulosin 0.4 mg PO DAILY 01/10/20 01/19/20 Allergies Allergy/AdvReac Type Severity Reaction Status Date / Time No Known Allergies Allergy Verified 01/16/20 16:32 Review of Systems Review of Systems: All systems reviewed & are unremarkable except as noted in HPI and below Constitutional: Constitutional: Reports as per HPI, Reports no additional constitutional complaints, Denies chills and Denies fever(s) Eyes: Eyes: Reports as per HPI, Reports no additional eye complaints and Denies change in vision ENT: Reports system reviewed and no additional complaints, except as documented, Reports as per HPI, Denies dysphagia, Denies vertigo, Denies dizziness and Denies epistaxis Cardiovascular: Cardiovascular: Reports no additional cardiovascular complaints, Denies chest pain and Denies radiating jaw, neck or arm pain Respiratory: Respiratory: Reports as per HPI, Reports no additional respiratory complaints, Denies cough and Denies dyspnea Gastrointestinal: Gastrointestinal: Reports as per HPI, Reports abdominal pain, Denies constipation and Denies vomiting Genitourinary: Genitourinary: Reports no additional male genitourinary complaints, Reports as per HPI, Denies hematuria and Denies dysuria Musculoskeletal: Musculoskeletal: Reports no additional musculoskeletal complaints and Denies back pain Integumentary/Breasts: Skin/Breast: Reports system reviewed and no additional complaints, except as docu, Denies erythema and Denies rash Neurologic: Reports system reviewed and no additional complaints, except as documented, Denies vertigo, Denies syncope, Denies focal weakness, Denies numbness and De
[2020-01-19 19:00] LABS: Alanine Aminotransferase 72 U/L (16-63); Albumin Level 3.1 g/dL (3.4-5.0); Alkaline Phosphatase 43 U/L (46-116); Anion Gap 10.2 mmol/L (7-16); Aspartate Amino Transferase 29 U/L (15-37); Bilirubin,Total 0.7 mg/dL (0.00-1.00); Blood Urea Nitrogen 22 mg/dL (7-18); Calcium 8.1 mg/dL (8.5-10.1); Carbon Dioxide 27 mmol/L (21-32); Chloride 104 mmol/L (98-108); Estimated Glomerular Filt Rate > 60; Glucose 97 mg/dL (70-99); Osmolality Calculated 289 mOsm/kg (285-295); Potassium 3.2 mmol/L (3.5-5.1); Sodium 138 mmol/L (136-145); Total Protein 6.5 g/dL (6.4-8.2)
[2020-01-19 19:09] LABS: Amylase 61 U/L (25-115); Lipase 261 U/L (73-393)
[2020-01-19] MEDS: SODIUM CHLORIDE 0.9% IV 1,000 ML 999 ML IV CONT (19:45)
[2020-01-19] MEDS: POTASSIUM CHLORIDE 20 MEQ PACKET (FOR LIQUID) 40 MEQ PO (19:45)
[2020-01-19] MEDS: PANTOPRAZOLE SODIUM IV 40 MG VIAL IV PUSH (20:26)
--- NOTE | 2020-01-19 20:59 | PC.NURSE ---
[facility] CALL[facility] AND STATES THAT THEY WILL ACCEPT PATIENT UNDER DR AMEZCUA, HOWEVER THEY WILL NOT HAVE A BED FOR A WHILE. PT AND SPOUSE ARE UPDATED ON PLAN OF CARE. I TOLD PATIENT THAT HE IS ESSENTIALLY DOING HERE THE SAME THING HE WOULD BE DOING INPATIENT. PT IS AGREEABLE TO STAY AND AWAIT BED PLACEMENT. PT ASKS FOR SOMETHING TO EAT AND DRINK, PT IS REMINDED THAT HE HAS ISSUES WITH THE LINING OF HIS STOMACH AND THAT PROBABLY WOULDN'T BE A GOOD IDEA.
[2020-01-19 21:26] VITALS: BP 125/70; PULSE 75; RESP 17; O2SAT 96
== END 2020-01-19 21:40 | disposition short-term general hospital (02) ==
LOC: CHSED 17:40
PROVIDERS: Emergency Provider Surgery
DX: R10.9 Unspecified abdominal pain (principal); K26.9 Duodenal ulcer, unspecified as acute or chronic, without hemorrhage or perforation
CPT/HCPCS: 36415; 71046; 74177; 80053; 81003; 82150; 83690; 85025; 96365; 96366; 96375; 99285; A9270; C9113; J0131; J7030; Q9965

== ENCOUNTER 2020-01-19 22:10 | Observation (INO) | payer BC, SELFPAY ==
[2020-01-19 22:10] VITALS: BP 133/79; PULSE 86; RESP 18; TEMP 36.6; O2SAT 96; BMI 29.4
--- NOTE | 2020-01-19 23:29 | ADMGEN ---
This patient, Neal Payne, was admitted to 3 [facility] Surg Room 310-01. Patient/family oriented to hospital policies and general routines including ID bracelet, bed and alarms, visiting hours, pain management, procedures, bathroom and other care routines, personal items, smoking policy, room service/diet, and visiting hours. Valuables list has been completed. Information on how to activate the Rapid Response Team has been discussed. Patient/Family are encouraged to report perceived risks to care and to ask questions if they do not understand what they are told or what they should do.
--- NOTE | 2020-01-20 01:41 | PC.NURSE ---
Daylight Savings Time For Daylight Savings Time Ending in the Fall - Clocks are moved back. For Daylight Savings Time Beginning in the Spring - Clocks are moved ahead. For [facility], the time of change occurs at 0200 hrs. Time is taken from the banking and finance instructor. This entry on the patient's chart recognizes the change in time reflected during documentation. Example: 2 entries for vital signs may be charted for 0200 hrs.
[2020-01-20] MEDS: SODIUM CHLORIDE 0.9% IV 1,000 ML 100 ML IV CONT (05:40)
[2020-01-20 06:00] VITALS: BP 128/70; PULSE 82; RESP 18; TEMP 36.7; O2SAT 100
[2020-01-20 08:00] VITALS: PULSE 82; RESP 18; O2SAT 100
--- NOTE | 2020-01-20 09:01 | PM.IMHP ---
H&P: HPI History of Present Illness Chief complaint: duodenal ulcer Narrative: Neal Payne is a 59 year old male who presented emergency room for abdominal pain that started 2 weeks ago. Patient was previously admitted hospital for influenza pneumonia and received steroids. He also had been taking ibuprofen for headache. He says since then his stomach pain has been getting more progressive and constant. He says it feels like a sharp pain in his epigastric area. Last night he could not eat or sleep and wanted to come in. He says food at times makes it better. He did not try any Tums or anything like that. Nothing seems to make it worse as it is pretty bad by itself. At this time he has 0/10 pain but has not eaten anything. He says he takes ibuprofen about 15 days out of the month for occasional headaches. The patient has not had any hematemesis, hematochezia, dark stool, or weakness/passing out. He feels a little weak from having the flu but is recovering. He had a mild cough that is getting better day by day and not really an issue anymore. He has some constipation and his last bowel movement was 4 days ago. He has lost 25 lb since this abdominal pain and flu started. He denies fevers, chest pain, shortness of breath, diarrhea, rashes, nausea, vomiting, wounds, or leg swelling. He has no history of heartburn and has never had an EGD. He had a screening colonoscopy within the last [address] Kendall. Review of Systems Review of Systems: All systems reviewed & are unremarkable except as noted in HPI and below PMFSH Past Medical History Medical History (Updated 01/20/20 @ 09:07 by Cheryl Zamora PA-C) BPH (benign prostatic hyperplasia) Carpal tunnel syndrome History of hypothyroidism Hyperlipidemia Surgical History Surgical History (Updated 01/20/20 @ 09:05 by Cheryl Zamora PA-C) H/O hemorrhoidectomy H/O inguinal hernia repair History of carpal tunnel surgery Family History Family History Father , father at age 90 of unknown causes No problems noted. Social History Social History (Updated 01/20/20 @ 09:05 by Cheryl Zamora PA-C) Social History: Patient is a former smoker but quit 20 years ago. He does not drink alcohol, smoke marijuana, or do drugs. He states at home and watches grandchildren. His surrogate decision maker is his Carmen Payne. He wishes to be a full code Smoking packs per day: 1 Smoking cigarettes per day: 20.0 Years smoked: 20 Smoking pack-years: 20.00 Smoking status: Former smoker Tobacco type: cigarettes Alcohol intake: never Substance use: never Gender identity (if verbalized by the patient): Male Spiritual care concerns: No Agree to blood products: Yes Meds Home Medications and Allergies Home Medications Medication Instructions Recorded Confirmed Type atorvastatin 10 mg PO DAILY 01/10/20 01/19/20 History levothyroxine 125 mcg PO DAILY 01/10/20 01/19/20 History tamsulosin 0.4 mg PO DAILY 01/10/20 01/19/20 History Allergies Allergy/AdvReac Type Severity Reaction Status Date / Time No Known Allergies Allergy Verified 01/16/20 16:32 Vital Signs Vital Signs - 24 hr 01/19/20 22:10 01/20/20 06:00 Temperature 97.8 F 98.0 F Pulse Rate 86 82 Respiratory Rate 18 18 Blood Pressure 133/79 128/70 Pulse Oximetry 96 100 Exam Narrative: Exam Narrative: General:Well developed well nourished patient resting comfortably in bed in no acute distress HEENT: Normocephalic, atraumatic, PERRL, Sclerae anicteric, oral mucosa moist. Neck: Supple Resp: CTA Heart: RRR with no murmurs Abd: Soft, nontender. No pain to palpation. Positive bowel sounds Skin: Warm and dry Extremities: No swelling, erythema or pain to palpation Neuro: Alert and Oriented x4 . Assessment and Plan Assessment and plan (1) Duodenal ulcer: Code(s): K26.9 - Duodenal ulcer, un
[2020-01-20 09:15] LABS: Blood Urea Nitrogen 18 mg/dL (9-20); Calcium 8.3 mg/dL (8.4-10.2); Carbon Dioxide 27 mmol/L (22-30); Chloride 105 mmol/L (98-107); Estimated CRCL calculation 77 ml/min; Estimated Glomerular Filt Rate > 60; Glucose 91 mg/dL (75-110); Sodium 134 mmol/L (137-145)
[2020-01-20] MEDS: PANTOPRAZOLE SODIUM IV 40 MG VIAL IV PUSH ×2 (09:46→20:07)
[2020-01-20 14:00] VITALS: BP 130/53; PULSE 68; RESP 18; TEMP 36.6; O2SAT 96
[2020-01-20] MEDS: TAMSULOSIN HCL 0.4 MG CAPSULE PO (18:16)
[2020-01-20 22:00] VITALS: BP 120/67; PULSE 65; RESP 18; TEMP 36.3; O2SAT 98
[2020-01-21 06:00] VITALS: BP 106/61; PULSE 71; RESP 18; TEMP 36.3; O2SAT 97
[2020-01-21 06:41] LABS: Hemoglobin 14.1 g/dL (14.0-18.0); Mean Corpuscular HGB Conc 32.8 g/dl (32-36); Mean Corpuscular Hemoglobin 29.6 pg (26-34); Mean Corpuscular Volume 90.1 fl (80-100); Platelet Count Result 290 k/mm3 (150-375); Red Blood Count 4.77 M/mm3 (4.6-6.20); Red Cell Distribution Width 12.8 % (11.5-14.5); White Blood Count 6.8 K/mm3 (4.5-10.0)
[2020-01-21 07:03] LABS: Alanine Aminotransferase 51 U/L (4-50); Albumin Level 3.2 g/dL (3.5-5.1); Alkaline Phosphatase 37 U/L (38-126); Aspartate Amino Transferase 28 U/L (17-59); Blood Urea Nitrogen 14 mg/dL (9-20); Calcium 8.4 mg/dL (8.4-10.2); Carbon Dioxide 27 mmol/L (22-30); Chloride 104 mmol/L (98-107); Estimated CRCL calculation 77 ml/min; Estimated Glomerular Filt Rate > 60; Glucose 89 mg/dL (75-110); Potassium 3.8 mmol/L (3.4-5.0); Sodium 134 mmol/L (137-145)
[2020-01-21] MEDS: PANTOPRAZOLE SODIUM IV 40 MG VIAL IV PUSH (08:51)
[2020-01-21 10:18] LABS: Hepatitis B Surface Antigen Negative (Negative)
[2020-01-21 10:24] LABS: HAV RESULT Negative (Negative); Hepatitis B Core IgM Result Negative (Negative)
[2020-01-21] MEDS: LACTATED RINGERS 1,000 ML 75 ML IV CONT ×2 (10:32→13:42)
[2020-01-21 10:36] LABS: Hepatitis C Virus Antibody Negative (Negative)
--- NOTE | 2020-01-21 11:13 | PM.DS ---
DS: Diagnosis Admitting Diagnosis Admitting Diagnosis: Duodenal ulcer, unspecified as acute or chronic, without hemorrhage or perforation Discharge Diagnosis (1) Duodenal ulcer: Code(s): K26.9 - Duodenal ulcer, unspecified as acute or chronic, without hemorrhage or perforation Status: Acute (2) Hypothyroid: Code(s): E03.9 - Hypothyroidism, unspecified Status: Acute (3) Lung nodules: Code(s): R91.8 - Other nonspecific abnormal finding of lung field Status: Acute (4) Liver lesion: Code(s): K76.9 - Liver disease, unspecified Status: Acute (5) Transaminitis: Code(s): R74.0 - Nonspecific elevation of levels of transaminase and lactic acid dehydrogenase [LDH] Status: Acute DS: Summary Hospital Course Reason for hospitalization: Abdominal pain Hospital Course: Patient is a 59-year-old male who presented emergency room after battling influenza and pneumonia for abdominal pain. He said he has lost about 20 lb in the last couple weeks. CT of the abdomen and pelvis shows duodenal bulb peptic ulcer disease without perforation. He said he had been utilizing ibuprofen and steroids during his acute illness. He was transferred to [facility] and underwent an EGD on Tuesday. His hemoglobin was completely stable and he had no evidence of bleed and denied dark stools. EGD showed: erythematous prepyloric gastritis. It also showed 2 acute ulcers in the duodenal bulb and the 2nd part of the duodenum there was patchy inflammation. Patient also had some CT findings not related to this issue. He had scattered basilar pulmonary nodules which could be acute infection, post infection or less likely metastatic disease. The patient said his cough was improving since his pneumonia and he was feeling much better. He rarely has any issues with coughing since being here in the hospital. I explained to him that this is likely left over from his past infection but that he will need a repeat CT scan in 1 month to ensure there is no other abnormalities. I have called Barbie Orellana his primary care provider. He also had very small liver lesions which are likely cyst but because of the abnormal lung findings they are somewhat suspicious. His AST and ALT were slightly elevated during his stay and could be due to acute infection previously and these will be redrawn outpatient. Hepatitis panel was negative. I talked to the patient and his about these findings and they are going to follow up with primary care physician. I called and spoke with Barbie Orellana NP and she agreed to follow this. Dr. tracy recommneded an outpt MRI. He also has a small umbilical hernia that he may want to be repaired in the future. Overall, the patient improved during his hospitalization. He was educated about the worrisome signs and symptoms come back to emergency room for and was discharged stable condition. He is to follow-up with his primary care physician in about 1 week. Status at Discharge Functional status at discharge: independent ambulation Overall status at discharge: patient is back to baseline Time Spent with Patient Time attestation: Total time spent providing and/or coordinating discharge services:38 min Exam Narrative: Exam Narrative: General:Well developed well nourished patient resting comfortably in bed in no acute distress HEENT: Normocephalic, atraumatic, PERRL, Sclerae anicteric, oral mucosa moist. Neck: Supple Resp: CTA Heart: RRR with no murmurs Abd: Soft, nontender. No pain to palpation. Positive bowel sounds Skin: Warm and dry Extremities: No swelling, erythema or pain to palpation Neuro: Alert and Oriented x4 . DS: Data Data Completed and Pending Labs on day of discharge: Labs from last 24 hours 01/21/20 01/21/20 01/21/20 06:00 06:00 06:00 WBC 6.8 RBC 4.77 Hgb 14.1 D Hct 43.0 MCV 90.1 MCH 29.6 MCHC 32.8 RDW 12.8 Plt Count 290 MPV 10.0 Sodium 134
[2020-01-21 13:45] VITALS: BP 121/71; PULSE 60; RESP 18; TEMP 36.7; O2SAT 97
[2020-01-21] MEDS: LACTATED RINGERS 1,000 ML 150 ML IV CONT (13:45)
--- NOTE | 2020-01-21 13:46 | WPDANESEPPF ---
Anes - Initial Pre Proc Eval Procedure: Operation Date: 01/21/20 14:00 Proposed Procedures p Esophagogastroduodenoscopy - Paul Villela JolantaDO shane Date/Time: 01/21/20 13:46 Surgeon: Cheryl Zamora PA-C Pre Op Diagnosis: duodenal ulcer Patient Data Age: 59 Gender: M Height: 5 ft 8 in Weight: 87.7 kg Last Vital Signs Temp 97.3 F L 01/21/20 06:00 Pulse 71 01/21/20 06:00 Resp 18 01/21/20 06:00 BP 106/61 01/21/20 06:00 Pulse Ox 97 01/21/20 06:00 Allergies Allergy/AdvReac Type Severity Reaction Status Date / Time No Known Allergies Allergy Verified 01/21/20 13:40 Home Medications Medication Instructions Recorded Confirmed Type atorvastatin 10 mg PO DAILY 01/10/20 01/19/20 History levothyroxine 125 mcg PO DAILY 01/10/20 01/19/20 History tamsulosin 0.4 mg PO DAILY 01/10/20 01/19/20 History Laboratory Tests 01/21/20 01/21/20 01/21/20 06:00 06:00 06:00 WBC 6.8 K/mm3 K/mm3 (4.5-10.0) RBC 4.77 M/mm3 M/mm3 (4.6-6.20) Hgb 14.1 g/dL D g/dL (14.0-18.0) Hct 43.0 % % (42.0-52.0) MCV 90.1 fl fl (80-100) MCH 29.6 pg pg (26-34) MCHC 32.8 g/dl g/dl (32-36) RDW 12.8 % % (11.5-14.5) Plt Count 290 k/mm3 k/mm3 (150-375) MPV 10.0 fl fl (7.4-10.4) Sodium 134 mmol/L L mmol/L (137-145) Potassium 3.8 mmol/L mmol/L (3.4-5.0) Chloride 104 mmol/L mmol/L (98-107) Carbon Dioxide 27 mmol/L mmol/L (22-30) BUN 14 mg/dL mg/dL (9-20) Creatinine 0.90 mg/dL mg/dL (0.7-1.3) Estim Creat Clear Calc 77 ml/min ml/min Estimated GFR > 60 (59 - ) Glucose 89 mg/dL mg/dL (75-110) Calcium 8.4 mg/dL mg/dL (8.4-10.2) Total Bilirubin 1.0 mg/dL mg/dL (0.2-1.3) Direct Bilirubin 0.0 mg/dL mg/dL (0-0.3) AST 28 U/L U/L (17-59) ALT 51 U/L H U/L (4-50) Alkaline Phosphatase 37 U/L L U/L (38-126) Total Protein 6.0 g/dL L g/dL (6.3-8.2) Albumin 3.2 g/dL L g/dL (3.5-5.1) Hepatitis A IgM Ab Negative (Negative) Hep Bs Antigen Negative (Negative) Hep B Core IgM Ab Negative (Negative) Hepatitis C Ab Screen Negative (Negative) Patient hx anesthesia problems: none Family hx anesthesia problems: none [facility] Past Medical History Medical History (Updated 01/20/20 @ 09:07 by Cheryl Zamora PA-C) BPH (benign prostatic hyperplasia) Carpal tunnel syndrome History of hypothyroidism Hyperlipidemia Surgical History Surgical History (Updated 01/20/20 @ 09:05 by Cheryl Zamora PA-C) H/O hemorrhoidectomy H/O inguinal hernia repair History of carpal tunnel surgery Family History Family History Father , father at age 90 of unknown causes No problems noted. Social History Social History (Updated 01/20/20 @ 09:05 by Cheryl Zamora PA-C) Social History: Patient is a former smoker but quit 20 years ago. He does not drink alcohol, smoke marijuana, or do drugs. He states at home and watches grandchildren. His surrogate decision maker is his Carmen Payne. He wishes to be a full code Smoking packs per day: 1 Smoking cigarettes per day: 20.0 Years smoked: 20 Smoking pack-years: 20.00 Smoking status: Former smoker Tobacco type: cigarettes Alcohol intake: never Substance use: never Gender identity (if verbalized by the patient): Male Spiritual care concerns: No Agree to blood products: Yes Liliana Duron Final PreProcedure Day of Procedure 01/21/20 13:46 Patient weight: normal Heart: regular rate and rhythm Lungs: clear to auscultation Airway: Mallampati scale class II Neurological: alert and oriented Last oral intake: >/= 8 hours ASA classification: II E
[2020-01-21] MEDS: SIMETHICONE ORAL SUSPENSION 20 MG/0.3 ML 30 ML BOTTLE 1.8 ML PO (14:00)
--- NOTE | 2020-01-21 14:08 | WPDGICN ---
GI Consult Note Consult date/time: 01/21/20 14:08 Reason for consult possible peptic ulcer disease and abnormal CT imaging. HPI: Neal Payne is a 59 year old male It seen in consultation at the request of the hospitalist and with the patient's permission. Impression: A review gentleman with abdominal pain. CT imaging reveals duodenal inflammation. This may be secondary to peptic ulcer disease. Multiple hypodensities in the liver. Slightly increased AST level. Metastatic disease not be ruled out. Multiple pulmonary nodules. Hypothyroidism. Hyperlipidemia. BPH. Possible history of colon polyps. Recommendation: Will proceed with EGD. MRI of the liver. Would referred to Pulmonary Medicine. Avoid NSAIDs. Further recommendations will be forthcoming. History: This very pleasant gentleman has been complaining of some mid abdominal pain. This occurred approximately 2 weeks ago. The pain is described as cramping in nature without radiation. Nausea, vomiting hematemesis tonight. Dysphagia and odynophagia tonight. Denied any constipation, diarrhea, hematochezia, melena or acholic stools. He does admit to taking Advil on a almost daily basis. CT imaging was obtained revealing evidence of inflammatory changes Of the duodenum. multiple hypodensities the liver were noted. Multiple pulmonary nodules were noted. The patient does report a 20 lb weight loss recently. He is not trying to lose weight. GI consultation was obtained for evaluation. Review of Systems Review of Systems: All systems reviewed & are unremarkable except as noted in HPI and below PMFSH Past Medical History Medical History (Updated 01/21/20 @ 14:12 by Paul Kendall DO) BPH (benign prostatic hyperplasia) Colon polyp History of hypothyroidism Hyperlipidemia Surgical History Surgical History (Updated 01/20/20 @ 09:05 by Cheryl Zamora PA-C) H/O hemorrhoidectomy H/O inguinal hernia repair History of carpal tunnel surgery Family History Family History Father , father at age 90 of unknown causes No problems noted. Social History Social History (Updated 01/20/20 @ 09:05 by Cheryl Zamora PA-C) Social History: Patient is a former smoker but quit 20 years ago. He does not drink alcohol, smoke marijuana, or do drugs. He states at home and watches grandchildren. His surrogate decision maker is his Carmen Payne. He wishes to be a full code Smoking packs per day: 1 Smoking cigarettes per day: 20.0 Years smoked: 20 Smoking pack-years: 20.00 Smoking status: Former smoker Tobacco type: cigarettes Alcohol intake: never Substance use: never Gender identity (if verbalized by the patient): Male Spiritual care concerns: No Agree to blood products: Yes Meds Home Medications and Allergies Home Medications Medication Instructions Recorded Confirmed Type atorvastatin 10 mg PO DAILY 01/10/20 01/19/20 History levothyroxine 125 mcg PO DAILY 01/10/20 01/19/20 History tamsulosin 0.4 mg PO DAILY 01/10/20 01/19/20 History Allergies Allergy/AdvReac Type Severity Reaction Status Date / Time No Known Allergies Allergy Verified 01/21/20 13:40 Vital Signs Vital Signs - 24 hr 01/20/20 22:00 01/21/20 06:00 01/21/20 13:45 Temperature 36.3 C L 36.3 C L 36.7 C Pulse Rate 65 71 60 Respiratory Rate 18 18 18 Blood Pressure 120/67 106/61 121/71 Pulse Oximetry 98 97 97 Exam Narrative: Exam Narrative: General: very pleasant patient in no acute distress. HEENT: Head was normocephalic sclerae is clear mouth without masses neck was supple. Heart: Rate rhythm regular without S3 or S4. Lungs: CTA. Abdomen: Soft with no guarding or rigidity. Bowel sounds were active. Neurologic: Cranial nerves 2 through 12 intact. No focal defects. No clonus. Musculoskeletal system: Revealed no joint t
[2020-01-21 14:22] VITALS: BP 93/60; PULSE 62; RESP 20; O2SAT 97
[2020-01-21 14:32] VITALS: BP 123/86; PULSE 67; RESP 20; O2SAT 97
[2020-01-21 14:42] VITALS: BP 104/74; PULSE 70; RESP 20; O2SAT 97
[2020-01-21 15:00] VITALS: BP 109/71; PULSE 60; RESP 16; O2SAT 97
[2020-01-21 15:12] VITALS: BMI 29.4
--- NOTE | 2020-01-21 15:45 | PC.NURSE ---
Abel'd from GI Lab at 1500. amandas.
== END 2020-01-21 16:20 | disposition home or self-care (01) ==
PROVIDERS: Internal Medicine Gastroenterology; Physician Assistant; Admitting Provider Internal Medicine; Visit Provider Internal Medicine
PROC: 0DJ08ZZ Inspection of Upper Intestinal Tract, Via Natural or Artificial Opening Endoscopic (ICD-10-PCS; CPT 43235; principal; 2020-01-21 14:00)
DX: K26.3 Acute duodenal ulcer without hemorrhage or perforation (principal); K29.70 Gastritis, unspecified, without bleeding; K29.80 Duodenitis without bleeding; E03.9 Hypothyroidism, unspecified; R91.8 Other nonspecific abnormal finding of lung field; K76.9 Liver disease, unspecified; R74.0 Nonspecific elevation of levels of transaminase and lactic acid dehydrogenase [LDH]; K42.9 Umbilical hernia without obstruction or gangrene; E78.5 Hyperlipidemia, unspecified; N40.0 Benign prostatic hyperplasia without lower urinary tract symptoms; Z79.899 Other long term (current) drug therapy; Z87.891 Personal history of nicotine dependence
CPT/HCPCS: 43239; 36415; 80048; 80074; 80076; 85027; 87081; 96361; 96374; 96375; 96376; A9270; C9113; G0378; J0131; J2704; J7030; J7120

== ENCOUNTER 2021-03-10 16:49 | Emergency (ER) | payer BC, SELFPAY ==
--- NOTE | ~2021-03-10 | CT_ITS ---
EXAMINATION: CT abdomen pelvis w con DATE: 03/10/2021 18:00 INDICATION: Blood in stool. Nausea, vomiting and diarrhea. Abdominal cramping. TECHNIQUE: Computed tomography (CT) of the abdomen and pelvis was performed with 100 mL Omnipaque-350 intravenous contrast. Automated exposure control and iterative reconstruction technique were employe d. The dose-length product was 1144.78 mGy-cm. COMPARISON: 01/19/2020 FINDINGS: Lung bases are clear. Heart size is normal. No pericardial or pleural effusion. No interval change in 3 subcentimeter hypodense lesions in the right hepatic lobe most likely hepatic cysts or hemangiomas . Gallbladder, spleen, pancreas and bilateral adrenal glands are normal. Bilateral renal cysts, the l argest on the right measuring 1.4 cm.. There are few scattered diverticula along the sigmoid colon wi thout adjacent inflammatory change to suggest diverticulitis. Suggestion of diffuse mild colonic wall thickening suspicious for colitis however the colon is largely decompressed which decreases specific ity. Small bowel and appendix are normal. Bladder is normal. Prostatomegaly. Interval increase in siz e of bilateral small to moderate-sized fat-containing inguinal hernias with suggestion of prior attem pted right inguinal hernia mesh repair. Small fat-containing umbilical hernia. No free intraperitonea l gas or fluid. No pathologically enlarged abdominal or pelvic lymphadenopathy. Mild degenerative ske letal changes in the spine and at both hips. Ankylosis across the bilateral sacral joints. IMPRESSION: 1. Suggestion of diffuse mild wall thickening of the colon suspicious for colitis which could be infe ctious, inflammatory or less likely ischemic in etiology. Specificity is however decreased by the lar ge decompressed state of the colon. 2. Increase in size of small to moderate-sized bilateral fat-containing inguinal hernias with change of likely attempted right inguinal hernia repair. 3. Mild diverticulosis. 4. Small fat-containing umbilical hernia. Reviewed, dictated and finalized at location A. IMPRESSION: 1. Suggestion of diffuse mild wall thickening of the colon suspicious for colit is which could be infectious, inflammatory or less likely ischemic in etiology. Specificity is however decreased by the large decompressed state of the colon. 2. Increase in size of small to moderate-sized bilateral fat-containing inguina l hernias with change of likely attempted right inguinal hernia repair. 3. Mild diverticulosis. 4. Small fat-containing umbilical hernia.
--- NOTE | 2021-03-10 16:55 | ED.ABDPAIN ---
HPI - Abdominal Pain General Chief Complaint: Abdominal Pain Stated Complaint: diarrhea,blood in stool, stomach cramps, nausea Source: patient and RN notes reviewed Mode of arrival: ambulatory Limitations: no limitations History of Present Illness HPI narrative: patient states he does have a history of some gastric ulcers. He has been having some abdominal pain for approximately 2 days. He was getting better and then this morning he started having some cramping in his abdomen with pain in his left lower quadrant and right lower quadrant. He noticed some black tarry stools and then a formed stool covered in blood. He has also been having weight loss of approximately 25 lb in last 2 months. MD elicited complaint: abdominal pain Pertinent past history: gastrointestinal bleeding Onset (ago): day(s) (2) Pain Consistency: intermittent Location: RLQ and LLQ Severity: moderate Quality: cramping and sharp Radiation: none Migration to: no migration Relieving factors: bowel movement Context: confirms history of similar episodes Associated symptoms: hematochezia and melena Related Data Home Medications Medication Instructions Recorded Confirmed atorvastatin 10 mg PO DAILY 01/10/20 03/10/21 levothyroxine 125 mcg PO DAILY 01/10/20 03/10/21 tamsulosin 0.4 mg PO DAILY 01/10/20 03/10/21 terazosin 1 mg PO DAILY 03/10/21 03/10/21 Allergies Allergy/AdvReac Type Severity Reaction Status Date / Time No Known Allergies Allergy Verified 01/21/20 13:40 Review of Systems Review of Systems: All systems reviewed & are unremarkable except as noted in HPI and below Constitutional: Constitutional: Denies chills, Denies fever(s) and Reports weight loss ( 25 lb in last 2 months) Gastrointestinal: Gastrointestinal: Reports melena and Reports hematochezia [facility] Past Medical History Medical History BPH (benign prostatic hyperplasia) Colon polyp History of hypothyroidism Hyperlipidemia Surgical History Surgical History H/O hemorrhoidectomy H/O inguinal hernia repair History of carpal tunnel surgery Family History Family History Father , father at age 90 of unknown causes No problems noted. Social History Social History Social History: Patient is a former smoker but quit 20 years ago. He does not drink alcohol, smoke marijuana, or do drugs. He states at home and watches grandchildren. His surrogate decision maker is his Carmen Payne. He wishes to be a full code Smoking packs per day: 1 Smoking cigarettes per day: 20.0 Years smoked: 20 Smoking pack-years: 20.00 Smoking status: Former smoker Tobacco type: cigarettes Alcohol intake: never Substance use: never Gender identity (if verbalized by the patient): Male Spiritual care concerns: No Agree to blood products: Yes Exam Const: General: healthy appearing and no acute distress Nutritional Appearance: well nourished Orientation/consciousness: patient oriented x3 HENMT: Head: normal to inspection Mouth: Yes moist mucous membranes Eyes: Conjunctivae: conjunctivae normal Pupils: Equal, round and reactive pupils present EOM: EOMs intact bilaterally Neck: Neck: normal visual inspection Resp: Effort & Inspection: normal respiratory effort Auscultation: clear to auscultation bilaterally Cardio: Rate: regular rate Rhythm: regular rhythm GI: GI Palp: Yes Soft to palpation, Yes Tenderness to palpation present (GI) (LLQ), Yes Guarding due to palpation present (GI) and No Rebound tenderness present Auscultation: normal bowel sounds Back/Spine/Pelvis: Back: no CVA tenderness Cervical Spine: cervical ROM normal Thoracic/Lumbar Spine: thoraco-lumbar ROM normal Skin: General skin exam: normal color Rashes: no rashes Neuro
[2021-03-10 17:05] VITALS: BP 134/81; PULSE 64; RESP 16; TEMP 36.8; O2SAT 94
[2021-03-10 17:23] LABS: Occult Blood Negative (Negative)
[2021-03-10 17:26] LABS: Add Urine Microscopic? NO; Appearance Urine Clear (Clear); Bilirubin Urine Negative (Negative); Blood Urine Negative (Negative); Color Urine Yellow (Yellow); Glucose Urine UA Negative (Negative); Ketones Urine Negative (Negative); Leukocyte Esterase Ur Negative LEU/UL (Negative); Nitrate Urine Negative (Negative); Protein Urine Negative (Negative); Specific Grav Ur >= 1.030 (1.010-1.020); Urobilinogen Urine 0.2 mg/dL (0.2-1.0); pH Urine 5.5 (5.0-8.0)
[2021-03-10 17:28] LABS: Basophils Absolute Auto 0.04 K/mm3 (0.00-0.10); Basophils Percent Auto 0.5 % (0.0-1.0); Eosinophils Absolute Auto 0.12 K/mm3 (0.02-0.50); Eosinophils Percent Auto 1.4 % (1.0-6.0); Hematocrit 47.4 % (40.0-54.0); Hemoglobin 15.5 g/dL (14.0-18.0); Immature Granulocyte Absolute 0.02 K/mm3 (0.00-0.00); Immature Granulocyte Percent A 0.2 % (0.0-0.0); Lymphocytes Absolute Auto 2.04 K/mm3 (1.10-4.50); Lymphocytes Percent Auto 23.4 % (18.0-42.0); Mean Corpuscular HGB Conc 32.7 g/dL (32.0-36.0); Mean Corpuscular Hemoglobin 29.6 pg (27.0-31.0); Mean Corpuscular Volume 90.6 fL (78.0-102.0); Mean Platelet Volume 10.9 fl (8.7-11.0); Monocytes Absolute Auto 0.57 K/mm3 (0.10-0.90); Monocytes Percent Auto 6.5 % (2.0-11.0); Neutrophils Absolute Auto 5.9 K/mm3 (1.7-7.2); Platelet Count Result 237 K/mm3 (150-420); Red Blood Count 5.23 M/mm3 (4.70-6.10); Red Cell Distribution Width 12.7 % (11.6-14.4); White Blood Count 8.7 K/mm3 (4.8-10.8)
[2021-03-10 17:40] LABS: INR 1.1; Prothrombin Time 11.9 Seconds (9.50-12.10)
[2021-03-10 17:42] LABS: Alanine Aminotransferase 38 U/L (16-63); Albumin Level 3.7 g/dL (3.4-5.0); Alkaline Phosphatase 57 U/L (46-116); Anion Gap 8 mmol/L (8-16); Aspartate Amino Transferase 22 U/L (15-37); Bilirubin,Total 0.5 mg/dL (0.00-1.00); Blood Urea Nitrogen 18 mg/dL (7-18); Calcium 8.9 mg/dL (8.5-10.1); Carbon Dioxide 27 mmol/L (21-32); Chloride 105 mmol/L (98-108); Estimated Glomerular Filt Rate > 60; Glucose 126 mg/dL (70-99); Osmolality Calculated 293 mOsm/kg (285-295); Potassium 3.7 mmol/L (3.5-5.1); Sodium 140 mmol/L (136-145); Total Protein 7.1 g/dL (6.4-8.2)
[2021-03-10 17:45] LABS: CRP 0.3 mg/dL (0.0-0.9)
[2021-03-10] MEDS: AMOXICILLIN/CLAVULANATE K 875-125 MG TAB 1 TABLET PO (18:46)
[2021-03-10] MEDS: metroNIDAZOLE 250 MG TABLET 500 MG PO (18:47)
[2021-03-10 18:50] VITALS: RESP 16
== END 2021-03-10 18:50 | disposition home or self-care (01) ==
PROVIDERS: Emergency Provider Emergency Medicine
DX: K52.9 Noninfective gastroenteritis and colitis, unspecified (principal)
CPT/HCPCS: 36415; 74177; 80053; 81003; 82272; 85025; 85610; 86140; 99283; 99284; A9270; Q9967

== ENCOUNTER 2021-11-03 20:07 | Emergency (ER) | payer BC, SELFPAY ==
[2021-11-03 22:05] VITALS: BP 137/86; PULSE 70; RESP 18; TEMP 36.8; O2SAT 100
[2021-11-03] MEDS: KETOROLAC (*BKC) 60 MG/2 ML VIAL IM (22:40)
--- NOTE | 2021-11-03 22:45 | ED.BACK ---
HPI - Back Pain/Injury General Chief Complaint: Back Pain/Injury Stated Complaint: back pain Time Seen by Provider: 11/03/21 20:10 Source: patient and RN notes reviewed Mode of arrival: ambulatory Limitations: no limitations History of Present Illness HPI Narrative: back pain with no acute trauma MD elicited complaint: back pain Pertinent past history: arthritis Onset (ago): day(s) (1) Severity: moderate Pain scale (0-10): 8 Similar Symptoms Previously: Yes Quality: dull and aching Location: lumbar spine Radiation: none Exacerbating factors: movement Relieving factors: immobilization Associated symptoms: denies other symptoms Treatments prior to arrival: other (pt does have spinal stenosis and will have surgery when available.) Work related injury: No Related Data Home Medications Medication Instructions Recorded Confirmed atorvastatin 10 mg PO DAILY 01/10/20 11/14/21 levothyroxine 125 mcg PO DAILY 01/10/20 11/14/21 tamsulosin 0.4 mg PO DAILY 01/10/20 11/14/21 terazosin 1 mg PO DAILY 03/10/21 11/14/21 Allergies Allergy/AdvReac Type Severity Reaction Status Date / Time No Known Allergies Allergy Verified 01/21/20 13:40 Review of Systems Review of Systems: All systems reviewed & are unremarkable except as noted in HPI and below PMFSH Past Medical History Medical History BPH (benign prostatic hyperplasia) Colon polyp History of hypothyroidism Hyperlipidemia Surgical History Surgical History H/O hemorrhoidectomy H/O inguinal hernia repair History of carpal tunnel surgery Family History Family History Father , father at age 90 of unknown causes No problems noted. Social History Social History Social History: Patient is a former smoker but quit 20 years ago. He does not drink alcohol, smoke marijuana, or do drugs. He states at home and watches grandchildren. His surrogate decision maker is his Carmen Payne. He wishes to be a full code Smoking packs per day: 1 Smoking cigarettes per day: 20.0 Years smoked: 20 Smoking pack-years: 20.00 Smoking status: Former smoker Tobacco type: cigarettes Alcohol intake: never Substance use: never Gender identity (if verbalized by the patient): Male Spiritual care concerns: No Agree to blood products: Yes Exam Const: General: no acute distress Orientation/consciousness: patient oriented x3 HENMT: Head: normal to inspection Ears: external ears normal and TM's normal bilaterally General nose exam: Normal external nose present and Normal nares present Mouth: Yes lip normal and Yes moist mucous membranes Teeth and gingiva: dentition normal Eyes: Conjunctivae: conjunctivae normal Pupils: Equal, round and reactive pupils present EOM: EOMs intact bilaterally Neck: Neck: normal visual inspection and no lymphadenopathy Chest: Chest palpation & inspection: normal inspection of the chest Resp: Effort & Inspection: normal respiratory effort Auscultation: clear to auscultation bilaterally Cardio: Rate: regular rate Rhythm: regular rhythm GI: GI Palp: Yes Soft to palpation and No Tenderness to palpation present (GI) Auscultation: normal bowel sounds : General: Yes bladder normal to palpation Male General Exam: Yes normal external exam Back/Spine/Pelvis: Back: no CVA tenderness Other: minimally tender paraspinal lumbo-sacral back, with no acute redness, swelling or deformity. Skin: General skin exam: normal color Rashes: no rashes Neuro: General: patient oriented x3, moves all extremities, no meningeal signs, no focal motor deficits and CN's II-XI intact bilaterally Extrem: General: normal to inspection and no pedal edema Psych: Appearance: grossly normal and well kempt Mental Sta
--- NOTE | 2021-11-03 22:54 | PC.NURSE ---
Patient refused CT scan
[2021-11-03 23:03] VITALS: BP 145/88; PULSE 88; RESP 18; TEMP 36.8; O2SAT 100
== END 2021-11-03 23:16 | disposition home or self-care (01) ==
PROVIDERS: Emergency Provider Emergency Medicine
DX: M54.16 Radiculopathy, lumbar region (principal)
CPT/HCPCS: 96372; 99283; J1885

== ENCOUNTER 2021-11-14 19:19 | Emergency (ER) | payer BC, SELFPAY ==
--- NOTE | ~2021-11-14 | CT_ITS ---
EXAMINATION: CT lumbar spine wo [facility] EXAM DATE: 11/14/2021 20:50 INDICATION: Left lower back pain for 2 days. TECHNIQUE: Spiral CT of the lumbar spine was performed without contrast. Axial, coronal and sagittal images lumbar spine were reviewed. The dose-length product (DLP) for this examination was 1168.52 m Gy-cm. The exposure was tailored according to patient size (auto mA exposure control), and iterativ e reconstruction (ASIR) was used as additional dose reduction technique. There is no prior study for comparison. FINDINGS: There is mild diffuse lumbar disc disease. No endplate erosive change. Vertebral body heigh ts are maintained. No spondylolysis or spondylolisthesis. Paraspinal soft tissue is unremarkable. The re are no acute fractures identified. No hydronephrosis. Level by level evaluation: T12-L1: Disc does not extend beyond the endplate margin. Facet arthropathy: None. Neural foraminal stenosis: No stenosis. Central canal stenosis: No stenosis. L1-L2: There is a mild diffuse disc bulge. Facet arthropathy: Minimal. Neural foraminal stenosis: No stenosis. Central canal stenosis: No stenosis. L2-L3: There is a mild diffuse disc bulge. Facet arthropathy: Mild. Neural foraminal stenosis: Mild left. Central canal stenosis: No stenosis. L3-L4: There is a mild diffuse disc bulge. Facet arthropathy: Mild to moderate. Neural foraminal stenosis: Mild to moderate bilateral. Central canal stenosis: Mild. L4-L5: There is a mild diffuse disc bulge. Facet arthropathy: Moderate. Neural foraminal stenosis: Moderate left, mild to moderate right. Central canal stenosis: Mild to moderate. L5-S1: There is a mild diffuse disc bulge. Facet arthropathy: Moderate. Neural foraminal stenosis: Mild to moderate left, mild right. Central canal stenosis: No stenosis. IMPRESSION: 1. L4-5 moderate left neural foraminal stenosis. 2. Moderate lower lumbar facet arthropathy. 3. No acute findings. Reviewed, dictated and finalized at location A. [employer]
[2021-11-14 19:44] VITALS: BP 127/90; PULSE 65; RESP 18; TEMP 36.6; O2SAT 99
[2021-11-14] MEDS: KETOROLAC (*BKC) 60 MG/2 ML VIAL IM (20:35)
--- NOTE | 2021-11-14 20:39 | PC.NURSE ---
Pt to x-ray at this time. Urine specimen given and taken to lab.
[2021-11-14 20:43] LABS: Appearance Urine Clear (Clear); Bilirubin Urine Negative (Negative); Color Urine Light Yellow (Yellow); Glucose Urine UA Negative (Negative); Ketones Urine Negative (Negative); Leukocyte Esterase Ur Negative (Negative); Nitrate Urine Negative (Negative); Protein Urine Negative (Negative); Specific Grav Ur 1.025 (1.010-1.020); Urobilinogen Urine 0.2 mg/dL (0.2-1.0)
[2021-11-14 20:48] LABS: Add Urine Microscopic? YES; Blood Urine Trace-Intact (Negative); RBC Urine 0-2 /hpf (0-2)
--- NOTE | 2021-11-14 21:05 | ED.BACK ---
HPI - Back Pain/Injury General Chief Complaint: Back Pain/Injury Stated Complaint: back pain Time Seen by Provider: 11/14/21 19:23 Source: patient and RN notes reviewed Mode of arrival: ambulatory Limitations: no limitations History of Present Illness MD elicited complaint: back pain Pertinent past history: prior back pain and kidney stones Onset (ago): day(s) (1) Severity: moderate Pain scale (0-10): 9 Similar Symptoms Previously: Yes Quality: dull and aching Location: lumbar spine and left lower back Radiation: none Exacerbating factors: movement Relieving factors: none Context: turning/twisting Associated symptoms: denies other symptoms Treatments prior to arrival: other (none) Related Data Home Medications Medication Instructions Recorded Confirmed atorvastatin 10 mg PO DAILY 01/10/20 11/14/21 levothyroxine 125 mcg PO DAILY 01/10/20 11/14/21 tamsulosin 0.4 mg PO DAILY 01/10/20 11/14/21 terazosin 1 mg PO DAILY 03/10/21 11/14/21 Allergies Allergy/AdvReac Type Severity Reaction Status Date / Time No Known Allergies Allergy Verified 01/21/20 13:40 Review of Systems Review of Systems: All systems reviewed & are unremarkable except as noted in HPI and below PMFSH Past Medical History Medical History BPH (benign prostatic hyperplasia) Colon polyp History of hypothyroidism Hyperlipidemia Surgical History Surgical History H/O hemorrhoidectomy H/O inguinal hernia repair History of carpal tunnel surgery Family History Family History Father , father at age 90 of unknown causes No problems noted. Social History Social History Social History: Patient is a former smoker but quit 20 years ago. He does not drink alcohol, smoke marijuana, or do drugs. He states at home and watches grandchildren. His surrogate decision maker is his Carmen Payne. He wishes to be a full code Smoking packs per day: 1 Smoking cigarettes per day: 20.0 Years smoked: 20 Smoking pack-years: 20.00 Smoking status: Former smoker Tobacco type: cigarettes Alcohol intake: never Substance use: never Gender identity (if verbalized by the patient): Male Spiritual care concerns: No Agree to blood products: Yes Exam Const: General: no acute distress Orientation/consciousness: patient oriented x3 Limitations: no limitations HENMT: Head: normal to inspection Ears: external ears normal and TM's normal bilaterally General nose exam: Normal external nose present and Normal nares present Mouth: Yes lip normal and Yes moist mucous membranes Teeth and gingiva: dentition normal Eyes: Conjunctivae: conjunctivae normal Pupils: Equal, round and reactive pupils present EOM: EOMs intact bilaterally Neck: Neck: normal visual inspection and no lymphadenopathy Chest: Chest palpation & inspection: normal inspection of the chest Resp: Effort & Inspection: normal respiratory effort Auscultation: clear to auscultation bilaterally Cardio: Rate: regular rate Rhythm: regular rhythm GI: Auscultation: normal bowel sounds Other: soft and non-tender abdomen : General: Yes bladder normal to palpation and Yes no CVA tenderness Male General Exam: Yes normal external exam Back/Spine/Pelvis: Back: no CVA tenderness Other: minimally tender left lower paraspinal to upper gluteus, with no acute redness, swelling or deformity. Skin: General skin exam: normal color Neuro: General: patient oriented x3, moves all extremities, no meningeal signs, no focal motor deficits and CN's II-XI intact bilaterally Extrem: General: normal to inspection and no pedal edema Psych: Appearance: grossly normal Mental Status: mental status grossly normal Affect: normal affect Attitude: cooperative T
--- NOTE | 2021-11-14 21:08 | PC.NURSE ---
Pt returned form CT via w/c at this time. Pt states he is pain free at this time. D/c orders recieved.
[2021-11-14 21:11] VITALS: BP 130/91; PULSE 62; RESP 16; TEMP 36.7; O2SAT 96
== END 2021-11-14 21:19 | disposition home or self-care (01) ==
PROVIDERS: Emergency Provider Emergency Medicine
DX: M54.32 Sciatica, left side (principal); S39.012D Strain of muscle, fascia and tendon of lower back, subsequent encounter
CPT/HCPCS: 72131; 81001; 96372; 99283; 99284; J1885

== ENCOUNTER 2022-07-04 21:04 | Emergency (ER) | payer BC, SELFPAY ==
[2022-07-04 21:53] VITALS: BP 159/96; PULSE 77; RESP 21; TEMP 36.2; O2SAT 97
--- NOTE | 2022-07-04 22:19 | ED.BACK ---
HPI - Back Pain/Injury General Chief Complaint: Back Pain/Injury Stated Complaint: back pain Time Seen by Provider: 07/04/22 21:06 Source: patient and RN notes reviewed Mode of arrival: ambulatory Limitations: no limitations History of Present Illness MD elicited complaint: back pain Pertinent past history: prior back pain Onset (ago): day(s) (1) Timing: constant Severity: moderate Pain scale (0-10): 6 Similar Symptoms Previously: Yes Quality: dull and aching Location: lumbar spine Radiation: none Exacerbating factors: movement Relieving factors: immobilization Context: turning/twisting Associated symptoms: arthralgias Related Data Home Medications Medication Instructions Recorded Confirmed atorvastatin 10 mg tablet 10 mg PO DAILY 01/10/20 07/04/22 levothyroxine 125 mcg tablet 125 mcg PO DAILY 01/10/20 07/04/22 tamsulosin 0.4 mg capsule 0.4 mg PO DAILY 01/10/20 07/04/22 terazosin 1 mg capsule 1 mg PO DAILY 03/10/21 07/04/22 Allergies Allergy/AdvReac Type Severity Reaction Status Date / Time No Known Allergies Allergy Verified 07/04/22 22:37 Review of Systems Review of Systems: All systems reviewed & are unremarkable except as noted in HPI and below Constitutional: Constitutional: Reports no additional constitutional complaints Eyes: Eyes: Reports no additional eye complaints ENT: Reports system reviewed and no additional complaints, except as documented Cardiovascular: Cardiovascular: Reports no additional cardiovascular complaints Respiratory: Respiratory: Reports no additional respiratory complaints Gastrointestinal: Gastrointestinal: Reports no additional gastrointestinal complaints Musculoskeletal: Musculoskeletal: Reports no additional musculoskeletal complaints Integumentary/Breasts: Skin/Breast: Reports system reviewed and no additional complaints, except as docu Neurologic: Reports system reviewed and no additional complaints, except as documented Psychiatric: Psychiatric: Reports no additional psychiatric complaints Endocrine: Endocrine: Reports no additional endocrine complaints Hematologic/Lymphatic: Hematologic/Lymphatic: Reports no additional hematologic/lymphatic complaints Allergic/Immunologic: Allergic/Immunologic: Reports no additional allergic/immunologic complaints [facility] Past Medical History Medical History BPH (benign prostatic hyperplasia) Colon polyp History of hypothyroidism Hyperlipidemia Lumbosacral strain Sciatica Surgical History Surgical History H/O hemorrhoidectomy H/O inguinal hernia repair History of carpal tunnel surgery Family History Family History Father , father at age 90 of unknown causes No problems noted. Social History Social History Social History: Patient is a former smoker but quit 20 years ago. He does not drink alcohol, smoke marijuana, or do drugs. He states at home and watches grandchildren. His surrogate decision maker is his Carmen Payne. He wishes to be a full code Smoking packs per day: 1 Smoking cigarettes per day: 20.0 Years smoked: 20 Smoking pack-years: 20.00 Smoking status: Former smoker Tobacco type: cigarettes Alcohol intake: never Substance use: never Gender identity (if verbalized by the patient): Male Spiritual care concerns: No Agree to blood products: Yes Exam Const: General: no acute distress Nutritional Appearance: well nourished Orientation/consciousness: patient oriented x3 Limitations: no limitations HENMT: Head: normal to inspection Ears: external ears normal, TM's normal bilaterally and EAC's normal General nose exam: Normal external nose present and Normal nares present Face and sinus: normal facial exam and sinuses nontender Mouth:
[2022-07-04] MEDS: KETOROLAC (*BKC) 60 MG/2 ML VIAL IM (22:25)
[2022-07-04 23:09] VITALS: BP 125/80; PULSE 70; RESP 19; TEMP 36.1; O2SAT 94
== END 2022-07-04 23:11 | disposition home or self-care (01) ==
PROVIDERS: Emergency Provider Emergency Medicine
DX: S39.012A Strain of muscle, fascia and tendon of lower back, initial encounter (principal)
CPT/HCPCS: 96372; 99283; J1885

== ENCOUNTER 2022-08-18 11:29 | Emergency (ER) | payer BC, SELFPAY ==
--- NOTE | ~2022-08-18 | XR_ITS ---
XR foot LT min 3V 08/18/2022 12:17 Indication: Heel pain. Procedure: 4 views left foot Comparison: No prior studies for comparison. Findings: There is an avulsion fracture of a calcaneal enthesophyte posterior margin of the calcaneus , age indeterminate. No other fracture is identified. Mild osteoarthritis of the first MTP joint. Lis franc joint intact. No foreign bodies. Impression: 1: Age-indeterminate avulsion fracture of calcaneal enthesophyte at the posterior margin. Correlate f or point tenderness. Reviewed, dictated and finalized at location B. Impression: 1: Age-indeterminate avulsion fracture of calcaneal enthesophyte at the posteri or margin. Correlate for point tenderness.
[2022-08-18 11:34] VITALS: BP 139/91; PULSE 83; RESP 19; TEMP 37.2; O2SAT 97
[2022-08-18 11:49] VITALS: BP 139/91; PULSE 83; RESP 18; TEMP 36.8; O2SAT 97
--- NOTE | 2022-08-18 13:19 | ED.LOWEXIN ---
HPI - Extremity Injury (Lower) General Chief Complaint: Extremity Injury, Lower Stated Complaint: Left heel injury Source: patient Mode of arrival: ambulatory Limitations: no limitations History of Present Illness HPI Narrative: 61-year-old male with a history of dyslipidemia, hypothyroidism, BPH, chronic low back pain presents to the ER with -- left heel pain which started 2 days ago. The patient stepped up high and put his left foot down which caused him to have acute pain over the left calcaneus. Subsequently the patient has had pain on weight-bearing. MD complaint: foot injury Onset (ago): day(s) ( Started 2 days ago) Injury: Left: foot Type of Injury: blunt Place: home Severity: moderate Relieving factors: nothing Exacerbating factors: weight bearing Context: direct blow Other symptoms: none Related Data Home Medications Medication Instructions Recorded Confirmed atorvastatin 10 mg tablet 10 mg PO DAILY 01/10/20 07/04/22 levothyroxine 125 mcg tablet 125 mcg PO DAILY 01/10/20 07/04/22 tamsulosin 0.4 mg capsule 0.4 mg PO DAILY 01/10/20 07/04/22 terazosin 1 mg capsule 1 mg PO DAILY 03/10/21 07/04/22 Allergies Allergy/AdvReac Type Severity Reaction Status Date / Time No Known Allergies Allergy Verified 07/04/22 22:37 Review of Systems Review of Systems: All systems reviewed & are unremarkable except as noted in HPI and below Constitutional: Constitutional: Reports as per HPI and Reports no additional constitutional complaints Eyes: Eyes: Reports as per HPI and Reports no additional eye complaints ENT: Reports system reviewed and no additional complaints, except as documented and Reports as per HPI Cardiovascular: Cardiovascular: Reports as per HPI and Reports no additional cardiovascular complaints Respiratory: Respiratory: Reports as per HPI and Reports no additional respiratory complaints Gastrointestinal: Gastrointestinal: Reports as per HPI and Reports no additional gastrointestinal complaints Genitourinary: Genitourinary: Reports no additional male genitourinary complaints and Reports as per HPI Musculoskeletal: Musculoskeletal: Reports no additional musculoskeletal complaints Comments: left heel pain made worse on weight-bearing Integumentary/Breasts: Skin/Breast: Reports system reviewed and no additional complaints, except as docu and Reports as per HPI Neurologic: Reports system reviewed and no additional complaints, except as documented and Reports as per HPI Psychiatric: Psychiatric: Reports no additional psychiatric complaints and Reports as per HPI Endocrine: Endocrine: Reports no additional endocrine complaints and Reports as per HPI Hematologic/Lymphatic: Hematologic/Lymphatic: Reports no additional hematologic/lymphatic complaints and Reports as per HPI Allergic/Immunologic: Allergic/Immunologic: Reports no additional allergic/immunologic complaints and Reports as per HPI [facility] Past Medical History Medical History BPH (benign prostatic hyperplasia) Colon polyp History of hypothyroidism Hyperlipidemia Lumbosacral strain Sciatica Surgical History Surgical History H/O hemorrhoidectomy H/O inguinal hernia repair History of carpal tunnel surgery Family History Family History Father , father at age 90 of unknown causes No problems noted. Social History Social History Social History: Patient is a former smoker but quit 20 years ago. He does not drink alcohol, smoke marijuana, or do drugs. He states at home and watches grandchildren. His surrogate decision maker is his Carmen Payne. He wishes to be a full code Smoking packs per day: 1 Smoking cigarettes per day: 20.0 Years smoked: 20 Smoking pack-years: 20.00 Smoking status
[2022-08-18 13:52] VITALS: BP 141/97; PULSE 62; RESP 20; TEMP 36.7; O2SAT 97
--- NOTE | 2022-08-18 14:02 | PC.NURSE ---
On 08/18/22, the student, [RANI VALDIVIA ], provided care and completed [facility] documentation on this patient. I have reviewed the student's documentation and agree with the findings.
== END 2022-08-18 14:01 | disposition home or self-care (01) ==
PROVIDERS: Emergency Provider Internal Medicine Critical Care Medicine
DX: M79.672 Pain in left foot (principal); S92.002A Unspecified fracture of left calcaneus, initial encounter for closed fracture
CPT/HCPCS: 73630; 99283

== ENCOUNTER 2023-03-14 11:18 | Emergency (ER) | payer BC, SELFPAY ==
[2023-03-14 11:18] VITALS: BP 130/83; PULSE 61; RESP 16; TEMP 36; O2SAT 98
--- NOTE | 2023-03-14 11:38 | ED.BACK ---
HPI - Back Pain/Injury General Chief Complaint: Back Pain/Injury Stated Complaint: back pain Time Seen by Provider: 03/14/23 11:20 History of Present Illness HPI Narrative: This is a 62-year-old male with past history of hypothyroidism and lumbar disc degeneration, who presents to the emergency department complaining of back pain. Patient states he was standing, approximate 30 minutes prior to arrival, when he tweaked [his] back. He describes the pain as sharp and cramping, rated 7/10 without radiation. He denies associated weakness, numbness or loss of bowel or bladder control. Related Data Home Medications Medication Instructions Recorded Confirmed atorvastatin 10 mg tablet 10 mg PO DAILY 01/10/20 03/14/23 levothyroxine 125 mcg tablet 0.112 mcg PO DAILY 01/10/20 03/14/23 tamsulosin 0.4 mg capsule 0.8 mg PO DAILY 01/10/20 03/14/23 terazosin 1 mg capsule 1 mg PO DAILY 03/10/21 03/14/23 Allergies Allergy/AdvReac Type Severity Reaction Status Date / Time No Known Allergies Allergy Verified 08/18/22 13:55 Review of Systems Review of Systems: CONSTITUTIONAL: Denies fever, chills, or sweats. CARDIOVASCULAR: Denies chest pain, palpitations, or edema. RESPIRATORY: Denies cough or dyspnea. GASTROINTESTINAL: Denies abdominal pain, nausea, vomiting, or diarrhea. GENITOURINARY: Denies dysuria or hematuria. SKIN: Denies rash or itching. MUSCULOSKELETAL: Low back pain denies joint pain, or myalgia. NEUROLOGIC: Denies headache, numbness, dizziness, or weakness. PSYCHIATRIC: Denies anxiety or depression. [facility] Past Medical History Medical History BPH (benign prostatic hyperplasia) Colon polyp History of hypothyroidism Hyperlipidemia Lumbosacral strain Sciatica Surgical History Surgical History H/O hemorrhoidectomy H/O inguinal hernia repair History of carpal tunnel surgery Family History Family History Father , father at age 90 of unknown causes No problems noted. Social History Social History Social History: Patient is a former smoker but quit 20 years ago. He does not drink alcohol, smoke marijuana, or do drugs. He states at home and watches grandchildren. His surrogate decision maker is his Carmen Payne. He wishes to be a full code Smoking packs per day: 1 Smoking cigarettes per day: 20.0 Years smoked: 20 Smoking pack-years: 20.00 Smoking status: Former smoker Tobacco type: cigarettes Alcohol intake: never Substance use: never Gender identity (if verbalized by the patient): Male Spiritual care concerns: No Agree to blood products: Yes Exam Narrative: GENERAL: Well-developed, well-nourished, and in no acute distress. HEAD: Normocephalic, atraumatic. EYES: PERRLA and EOMI. CHEST: Clear to auscultation. No respiratory distress. No wheezes rales or rhonchi HEART: Regular rate and rhythm. No murmur heard. Normal peripheral pulses. ABDOMEN: Soft, nontender, nondistended, normal active bowel sounds. BACK: Bilateral paraspinal tenderness to palpation at the L2-L5. No midline spine tenderness to palpation, no step-off or crepitus EXTREMITIES: Normal range of motion. No edema. SKIN: Warm, dry, no rash. NEURO: No focal deficits. Alert and oriented x3. Strength 5/5 in all extremities, sensation intact bilaterally PSYCH: Normal mood and affect. Course Course Emergency Course: 11:40 - Exam not concerning for focal neural deficit. Will discharge with muscle relaxants, NSAIDs and recommendations to follow-up with his primary care doctor. Discussed return and emergency precautions including signs/symptoms of cauda equina. The patient voiced understanding and is comfortable with the plan. All questions answered to his satisfaction. V
--- NOTE | 2023-03-14 12:08 | PC.NURSE ---
RN to room to medicate pt. Pt upset that he is not getting a shot . Pt states I have severe inflammation, I can't hardly walk. So if I'm not getting a shot what did I come here for . RN inquired what type of shot pt is talking about. Pt states that he has received toradol in the past and that has helped him. ERP aware, new orders given.
[2023-03-14] MEDS: KETOROLAC 30 MG/ML VIAL (*BKC) IM (12:26)
--- NOTE | 2023-03-14 12:44 | PC.NURSE ---
Pt discharged by another RN before tylenol, flexeril, and lidocaine patch was given.
== END 2023-03-14 12:40 | disposition home or self-care (01) ==
LOC: CHSED 11:52
PROVIDERS: Emergency Provider Preventive Medicine Aerospace Medicine; PCP Nurse Practitioner Family
DX: S39.012A Strain of muscle, fascia and tendon of lower back, initial encounter (principal); X50.0XXA Overexertion from strenuous movement or load, initial encounter; E78.5 Hyperlipidemia, unspecified; N40.0 Benign prostatic hyperplasia without lower urinary tract symptoms; E03.9 Hypothyroidism, unspecified; Z87.891 Personal history of nicotine dependence
CPT/HCPCS: 96372; 99283; J1885

== ENCOUNTER 2023-11-13 11:08 | Emergency (ER) | payer BC, SELFPAY ==
[2023-11-13 11:08] VITALS: BP 146/75; PULSE 60; RESP 16; TEMP 36.3; O2SAT 98
--- NOTE | 2023-11-13 11:34 | ED.BACK ---
HPI - Back Pain/Injury General Chief Complaint: Back Pain/Injury Stated Complaint: lower back pain Time Seen by Provider: 11/13/23 11:34 History of Present Illness HPI Narrative: 63-year-old male patient with known history of hypercholesterolemia chronic low back pain, acid reflux disorder and hypertension in addition to benign prostate hyperplasia is here with complaints of low back pain and spasm that started this morning upon waking up. He recalls no injury. He states that this has happened to him in the past as well. He localizes the discomfort to the mid to lower back area without radiation or any associated numbness or tingling into the legs or buttocks. Denies any loss of bowel or bladder control. Patient states that usually he gets a shot and this seems to help him. He has not had any prior surgical history that involves his spine. Related Data Home Medications Medication Instructions Recorded Confirmed atorvastatin 10 mg tablet 10 mg PO DAILY 01/10/20 11/13/23 levothyroxine 125 mcg tablet 0.112 mcg PO DAILY 01/10/20 11/13/23 tamsulosin 0.4 mg capsule 0.8 mg PO DAILY 01/10/20 11/13/23 terazosin 1 mg capsule 1 mg PO DAILY 03/10/21 11/13/23 Allergies Allergy/AdvReac Type Severity Reaction Status Date / Time No Known Allergies Allergy Verified 11/13/23 11:45 Review of Systems Review of Systems: All systems reviewed & are unremarkable except as noted in HPI and below PMFSH Past Medical History Medical History BPH (benign prostatic hyperplasia) Colon polyp History of hypothyroidism Hyperlipidemia Lumbosacral strain Sciatica Surgical History Surgical History H/O hemorrhoidectomy H/O inguinal hernia repair History of carpal tunnel surgery Family History Family History Father , father at age 90 of unknown causes No problems noted. Social History Social History Social History: Patient is a former smoker but quit 20 years ago. He does not drink alcohol, smoke marijuana, or do drugs. He states at home and watches grandchildren. His surrogate decision maker is his Carmen Payne. He wishes to be a full code Smoking packs per day: 1 Smoking cigarettes per day: 20.0 Years smoked: 20 Smoking pack-years: 20.00 Smoking status: Former smoker Tobacco type: cigarettes Alcohol intake: never Substance use: never Gender identity (if verbalized by the patient): Male Spiritual care concerns: No Agree to blood products: Yes Exam Narrative: . Alert male patient who appears in moderate discomfort because of low back pain and moves around with a little guarded gait and using the walker. He is otherwise in no acute distress. Vital signs are noted to be stable. HEENT Is acutely unremarkable . Neck is supple. Lungs are clear on auscultation. Heart tones are regular spine curvature is normal. There is minimal tenderness in the paralumbar and lumbosacral areas on palpation. Range of motion of the spine is slightly restricted in both forward flexion and hyperextension. Distal neurovascular status to the lower extremities is within normal limits. Patient is able to ambulate with the use of a walker. His deep tendon reflexes are intact. Neurologic exam grossly normal mood and affect are normal. Course Vital Signs Vital signs: Vital Signs Temperature 36.3 C L 11/13/23 11:08 Pulse Rate 60 11/13/23 11:08 Respiratory Rate 16 11/13/23 11:08 Blood Pressure 146/75 H 11/13/23 11:08 Pulse Oximetry 98 11/13/23 11:08 Oxygen Delivery Room Air 11/13/23 11:08 Temperature 36.3 C L 11/13/23 11:08 Pulse Rate 60 11/13/23 11:08 Respiratory Rate 16 11/13/23 11:08 Blood Pressure 146/75 H 11/13/23 11:08 Pulse Oximetry 98 11/13/23
[2023-11-13] MEDS: KETOROLAC (*BKC) 60 MG/2 ML VIAL IM (11:51)
== END 2023-11-13 12:02 | disposition home or self-care (01) ==
PROVIDERS: Emergency Provider Emergency Medicine
DX: M54.50 Low back pain, unspecified (principal); I10 Essential (primary) hypertension; E03.9 Hypothyroidism, unspecified; E78.5 Hyperlipidemia, unspecified; Z79.899 Other long term (current) drug therapy; Z87.891 Personal history of nicotine dependence
CPT/HCPCS: 96372; 99284; J1100; J1885

== ENCOUNTER 2025-07-19 14:01 | Emergency (ER) | payer BC, SELFPAY ==
--- NOTE | ~2025-07-19 | XR_ITS ---
EXAMINATION: XR lumbar spine 2-3V DATE: 07/19/2025 15:05 INDICATION: Low back pain TECHNIQUE: Anteroposterior and lateral views of the lumbar spine, and cone-down lateral view of the lumbosacral junction were obtained. COMPARISON: CT dated 11/14/2021 FINDINGS: Alignment is normal. Chronic minimal likely physiologic anterior wedging at T12 and L1. Remaining vertebral body heights are normal. Mild disc height loss at T11-T12, L4-5 and L5-S1. Mild upper lumbar and moderate lower lumbar facet osteoarthritis. 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 IMPRESSION: 1. Mild lower thoracic and mild lower lumbar spondylosis. Reviewed, dictated and finalized at location A.
[2025-07-19 14:09] VITALS: BP 138/82; PULSE 70; RESP 18; TEMP 36.3; O2SAT 97
--- OUTSIDE RECORDS SUMMARY | 2025-07-19 14:13 | XMS_ITS | Encounter Summary ---
Author Organization [facility] Address [address] [place] [address] Phone Care Team Providers Care Commercial Crabber Name Role Phone Hoang Trujillo Primary Care Provider + [phone] Bi Wooten APRN, HUMANITIES DIVISION CHAIR Unavailable + [phone] Reason for Visit * Reason Comments Medication Refill Encounter Details Date Type Department Care Team (Late st Contact Info) Description 03/02/2024 Refill [facility] - Primary Care - [place] [address] [place] [address] Hoang Trujillo PAC [address] [place] [address] Medication Refill Social History Tobacco Use Types Packs/Day Years Used Date Smoking Tobacco: Former Cigarettes 1 20 Smokeless Tobacco: Never Alcohol Use Standard Drinks/Week Comments No 0 (1 standard drink = 0.6 oz pur e alcohol) PHQ-2 Answer Date Recorded Total Score - Questions 1-9 0 11/14 Sexually Active Control Partners Comments Yes Female Sex and Gender Information Value Date Recorded Sex Assigned at Not on file Legal Sex Male 8:02 PM CDT Gender Identity Not on file Sexual Orientation Not on file documented as of this encounter Miscellaneous Notes * Telephone Encounter - Laron Martins RN - 03/02/2024 1:41 PM CDT Medication(s) refilled and signed per [facility] Chronic Medication Refill Standing Order for Pediatricand Adult Patients. Requested Prescriptions Pending Prescriptions Disp Refills tamsulosin (FLOMAX) 0.4 MG Capsule [Pharmacy Med Name: TAMSULOSIN HCL 0.4 MG CAPSULE] 180 Capsule 0 Sig: TAKE 2 CAPSULES BY MOUTH EVERY DAY IN THE EVENING Benign Prostatic Hyperplasia Medications Protocol Passed - 03/02/2024 1:31 PM Passed - Visit with relevant provider in past 12 months or upcoming 90 days Recent Visits Date Type Provider Dept 11/28/23 Office Visit Adelfo Rice MD [facility] 05/02/23 Office Visit Hoang Trujillo PAC [facility] Showing recent visits within past 365 days and meeting all other requirements Future Appointments No visits were found meeting these conditions. Showing future appointments within next 90 days and meeting all other requirements documented in this encounter Plan of Treatment Upcoming Encounters Date Type Department Care Team (Late st Contact Info) Description 01/06/2026 8:00 AM ARCHITECTURAL DESIGNER Lab [facility] [place] [address] [place] [address] [facility] 01/13/2026 9:30 AM ARCHITECTURAL DESIGNER Office Visit [facility] [place] [address] [place] [address] Hoang Trujillo PAC [address] [place] [address] documented as of this encounter Visit Diagnoses Not on filedocumented in this encounter Additional Health Concerns Assessment Noted Time PHQ-9 Depression Total Score: 0 11/28/19 9:19 AM ARCHITECTURAL DESIGNER documented as of this encounter Care Teams Commercial Crabber Relationship Specialty Start Date End Date Hoang Trujillo PAC [address] [place] [address] PCP - General Physician Glass Or Mirror Inspector 05/02/23 Bi Wooten, CAPRI, HUMANITIES DIVISION CHAIR [address] [place] [address] Nurse Practitioner Advanced Practice Nurse 01/09/24 documented as of this encounter
--- OUTSIDE RECORDS SUMMARY | 2025-07-19 14:13 | XMS_ITS | Encounter Summary ---
Author Organization [facility] Address [address] [place] [address] Phone Care Team Providers Care Oracle Soa Consultant Name Role Phone Barbie Orellana APRN, UX DESIGN MANAGER Primary Care Provider Hoang Trujillo Primary Care Provider + [phone] Bi Wooten APRN, UX DESIGN MANAGER Unavailable + [phone] Reason for Visit * Reason Comments Medication Refill Encounter Details Date Type Department Care Team (Late st Contact Info) Description 04/21/2023 [facility] - [place] [address] [place] [address] Barbie Orellana, BOX INSPECTOR, UX DESIGN MANAGER [address] [place] [address] Medication Refill Social History Tobacco Use Types Packs/Day Years Used Date Smoking Tobacco: Former Cigarettes 1 20 Smokeless Tobacco: Never Alcohol Use Standard Drinks/Week Comments No 0 (1 standard drink = 0.6 oz pur e alcohol) PHQ-2 Answer Date Recorded Total Score - Questions 1-9 0 03/14 Sexually Active Control Partners Comments Yes Female Sex and Gender Information Value Date Recorded Sex Assigned at Not on file Legal Sex Male 8:02 PM CDT Gender Identity Not on file Sexual Orientation Not on file documented as of this encounter Miscellaneous Notes * Telephone Encounter - Hoang Trujillo PAC - 04/21/2023 9:57 AM CDT Rx request approved. * Telephone Encounter - Hali Sanders RN - 04/21/2023 9:15 AM CDT Medication failed the protocol, provider to review and approve the medication order if appropriate. Requested Prescriptions Pending Prescriptions Disp Refills atorvastatin (LIPITOR) 10 MG Tablet [Pharmacy Med Name: ATORVASTATIN 10MG TABLETS] 90 Tablet 1 Sig: TAKE 1 TABLET BY MOUTH DAILY Hmg CoA Reductase Inhibitors Protocol Failed - 04/21/2023 5:56 AM Failed - Lipid panel in past 12 months LDL Date Value Ref Range Status 03/29/2022 88 5 - 130 mg/dL Final HDL CHOLESTEROL Date Value Ref Range Status 03/29/2022 49.4 >40 mg/dL Final CHOLESTEROL Date Value Ref Range Status 03/29/2022 145 <=200 mg/dL Final TRIGLYCERIDES Date Value Ref Range Status 03/29/2022 39 <150 mg/dL Final VLDL Date Value Ref Range Status 03/29/2022 8 5 - 55 mg/dL Final CHOL/HDL RATIO Date Value Ref Range Status 03/29/2022 2.9 0.0 - 4.4 Final NON-HDL CHOLESTEROL Date Value Ref Range Status 03/29/2022 95.6 <130 mg/dL Final Passed - Visit with relevant provider in past 12 months or upcoming 90 days Recent Visits No visits were found meeting these conditions. Showing recent visits within past 365 days and meeting all other requirements Future Appointments Date Type Provider Dept 04/25/23 Appointment Hoang Trujillo PAC [facility] Showing future appointments within next 90 days and meeting all other requirements documented in this encounter Plan of Treatment Upcoming Encounters Date Type Department Care Team (Late st Contact Info) Description 01/06/2026 8:00 AM CARRIAGE FEEDER Lab [facility] - Primary Care - [place] [address] [place] [address] [facility] 01/13/2026 9:30 AM CARRIAGE FEEDER Office Visit [facility] Care - [place] [address] [place] [address] Hoang Trujillo PAC [address] [place] [address] documented as of this encounter Visit Diagnoses Diagnosis Hyperlipidemia, unspecified hyperlipidemia type documented in this encounter Additional Health Concerns Assessment Noted Time PHQ-9 Depression Total Score: 0 12/03/19 21 10:07 AM CARRIAGE FEEDER documented as of this encounter Care Teams Oracle Soa Consultant Relationship Specialty Start Date End Date Barbie Orellana BOX INSPECTOR, UX DESIGN MANAGER [address] [place], [place] [id number] PCP - General Advanced Practice Nurse 06/05/18 Hoang Trujillo PAC [address] [place] [address] PCP - General Physician Purchaser 05/02/23 Bi Wooten APRN, UX DESIGN MANAGER [address] [place] [address] Nurse Practitioner Advanced Practice Nurse 01/09/24 documented as of this encounter
--- OUTSIDE RECORDS SUMMARY | 2025-07-19 14:13 | XMS_ITS | Encounter Summary ---
Author Organization [facility] Address [address] [place] [address] Phone Care Team Providers Care Power Plant Supervisor Name Role Phone Barbie Orellana APRN, TRAINING INSTRUCTOR Primary Care Provider Hoang Trujillo PAC Primary Care Provider + [phone] Bi Wooten APRN, TRAINING INSTRUCTOR Unavailable + [phone] Reason for Visit * Reason Comments Medication Refill Encounter Details Date Type Department Care Team (Late Contact Info) Description 04/05/2021 Refill [facility] [place] [address] Dariel Garcia PAC Medication Refill Social History Tobacco Use Types Packs/Day Years Used Date Smoking Tobacco: Former Cigarettes 1 20 Smokeless Tobacco: Never Alcohol Use Standard Drinks/Week Comments No 0 (1 standard drink = 0.6 oz pur e alcohol) PHQ-2 Answer Date Recorded Total Score - Questions 1-9 0 11/15 Sexually Active Control Partners Comments Yes Female Sex and Gender Information Value Date Recorded Sex Assigned at Not on file Legal Sex Male 8:02 PM CDT Gender Identity Not on file Sexual Orientation Not on file documented as of this encounter Plan of Treatment Upcoming Encounters Date Type Department Care Team (Late Contact Info) Description 01/06/2026 8:00 AM RECREATION ENGINEER Lab [facility] [place] [address] [facility] 01/13/2026 9:30 AM RECREATION ENGINEER Office Visit [facility] - Primary Care - [place] [address] [place] [address] Hoang Trujillo PAC [address] [place] [address] documented as of this encounter Visit Diagnoses Diagnosis Hyperlipidemia, unspecified hyperlipidemia type documented in this encounter Additional Health Concerns Assessment Noted Time PHQ-9 Depression Total Score: 0 12/03/19 21 10:07 AM RECREATION ENGINEER documented as of this encounter Care Teams Power Plant Supervisor Relationship Specialty Start Date End Date Barbie Orellana APRN, TRAINING INSTRUCTOR [address] [place] [address] PCP - General Advanced Practice Nurse 06/05/18 Hoang Trujillo PAC [address] [place] [address] PCP - General Physician Tutoring Manager 05/02/23 Bi Wooten APRN, TRAINING INSTRUCTOR [address] [place] [address] Nurse Practitioner Advanced Practice Nurse 01/09/24 documented as of this encounter
--- OUTSIDE RECORDS SUMMARY | 2025-07-19 14:13 | XMS_ITS | Clinical Summary ---
Author Organization [facility] Address [address] [place] [address] Care Team Providers Care Actuarial Director Name Role Phone Nathalia Velazco MD Primary Care Provider Source Comments [facility],non-owned Affiliates and Associated Physician Practices is amultiple site organization consisting of ambulatory clinics and hospital sitesin [place], [place], [place] and [place]. This disclosure is being madepursuant to the Care Everywhere program and may not contain all information available regarding this patient. Last updated 18.[employer] [facility] Allergies No known active allergies Medications * Be aware that medications may not be up to date on this document. Alwaysverify current medications with the patient. Other as needed. Pain medication Active Social History Tobacco Use Types Packs/Day Years Used Date Smoking Tobacco: Never Assessed Sex and Gender Information Value Date Recorded Sex Assigned at Not on file Legal Sex Male 5:59 AM WELLFIELD TECHNICIAN Gender Identity Not on file Sexual Orientation Not on file Plan of Treatment Health Maintenance Due Date Last Done Comments COLOGUARD (AGES 45-75) - COL ON CA SCREENING 1962 COLON MONITORING 1962 COLONOSCOPY - COLON CA SCREENING 1962 CT COLONOGRAPHY - COLON CA SCREENING 1962 Colorectal Cancer Screening 1962 FIT - COLON CA SCREENING 1962 FLEX SIG - COLON CA SCREENING 1962 LIPID TESTING 1962 HIV SCREENING 1977 HEPATITIS C SCREENING 10/25/1980 DTAP/TDAP/TD VACCINES (1 - Tdap) 1981 PNEUMOCOCCAL VACCINE 50+ (1 of 1 - PCV) 2012 ZOSTER VACCINE (1 of 2) 2012 DEPRESSION SCREENING 11/14/2024 COVID-19 VACCINE (1 - 2023-2 5 season) 2025 INFLUENZA VACCINE (#1) 2025 Respiratory Syncytial Virus (RSV) Vaccine Pt: or over 60 yrs (1 - 1-dose 75+ series) 2037 HEPATITIS B VACCINE Aged Out No longe r eligible based on patient's age to complete this topic HIB VACCINE Aged Out No longer eligi ble based on patient's age to complete this topic HPV VACCINE Aged Out No longer eligi ble based on patient's age to complete this topic MENINGOCOCCAL (Group B) VACC INE SHARED DECISION-MAKING Aged Out No longer eligibl e based on patient's age to complete this topic MENINGOCOCCAL GROUPS A/C/Y/W VACCINE Aged Out No longer eligible b ased on patient's age to complete this topic [place] [address] [place] [address] [place] [address] Care Teams Actuarial Director Relationship Specialty Start Date End Date Nathalia Velazco MD PCP - General Family Medicine 11/02/11
--- OUTSIDE RECORDS SUMMARY | 2025-07-19 14:13 | XMS_ITS | Encounter Summary ---
Author Organization [facility] Address [address] [place] [address] Phone Care Team Providers Care Liquefied Natural Gas Operator Name Role Phone Barbie Orellana APRN, CNP Primary Care Provider Hoang Trujillo Primary Care Provider + [phone] Bi Wooten APRN, CNP Unavailable + [phone] Reason for Visit * Reason Comments Medication Refill Encounter Details Date Type Department Care Team (Late st Contact Info) Description 07/26/2020 [facility] [place] [address] [place] [address] Barbie Orellana APRN, CNP [address] [place] [address] Medication Refill Social History Tobacco Use Types Packs/Day Years Used Date Smoking Tobacco: Former Cigarettes 1 20 Smokeless Tobacco: Never Alcohol Use Standard Drinks/Week Comments No 0 (1 standard drink = 0.6 oz pur e alcohol) Sex and Gender Information Value Date Recorded Sex Assigned at Not on file Legal Sex Male 8:02 PM CDT Gender Identity Not on file Sexual Orientation Not on file documented as of this encounter Miscellaneous Notes * Telephone Encounter - Barbie Orellana APN, CNP - 07/28/2020 1:11 PM CDT Approved * Telephone Encounter - Nicole Wooten RN - 07/28/2020 10:23 AM CDT Medication failed the protocol,provider to review and approve the medication order. Requested Prescriptions Pending Prescriptions Disp Refills tamsulosin (FLOMAX) 0.4 MG Capsule [Pharmacy Med Name: TAMSULOSIN 0.4MG CAPSULES] 90 Cap 1 Sig: TAKE 1 CAPSULE BY MOUTH DAILY Urology: Benign Prostatic Hyperplasia Passed - 07/26/2020 5:37 PM Passed - Valid encounter within last 12 months Past Office Visits Recent Outpatient Visits 6 months ago Lung nodule [facility] - Barbie Ramos APN, CNP 7 months ago Chronic bilateral low back pain without sciatica [facility] - Barbie Ramos APN, CNP 10 months ago Acute bilateral low back pain without sciatica [facility] - Barbie Ramos APN, CNP 2 years ago Preventative health care (Adult) [facility] - Barbie Ramos APN, CNP 2 years ago Viral upper respiratory tract infection [facility] - Barbie Ramos APN, CNP Upcoming Appointments FUNERAL DIRECTOR AND EMBALMER - Recent and Past Visits Recent Visits Date Type Provider Dept 01/29/20 Office Visit Barbie Orellana APN, CNP [facility] 12/04/19 Office Visit Barbie Orellana APN, CNP [facility] 09/07/19 Office Visit Bar[facility]ana APN, C[facility] Showing recent visits within past 460 days with a meds authorizing provider and meeting all other requirements Future Appointments No visits were found meeting these conditions. Showing future appointments within next 90 days with a meds authorizing provider and meeting all other requirements Passed - Last BP in normal range BP Readings from Last 1 Encounters: 01/29/20 100/64 documented in this encounter Plan of Treatment Upcoming Encounters Date Type Department Care Team (Late st Contact Info) Description 01/06/2026 8:00 AM INSURANCE AND BENEFITS CLERK [facility] [place] [address] [place] [address] [place] [facility] 01/13/2026 9:30 AM INSURANCE AND BENEFITS CLERK Office Visit [facility] - [place] [address] [place] [address] Hoang Trujillo PAC [address] [place] [address] documented as of this encounter Visit Diagnoses Not on filedocumented in this encounter Additional Health Concerns Assessment Noted Time PHQ-9 Depression Total Score: 0 06/05/20 18 1:00 PM CDT documented as of this encounter Care Teams Liquefied Natural Gas Operator Relationship Specialty Start Date End Date Barbie Orellana APRN, POWDER AND PRIMER CANNING LEADER [address] [place] [address] PCP - General Advanced Practice Nurse 06/05/18 Hoang Trujillo, PAC [address] [place] [address] PCP - General Physician Research Programmer 05/02/23 Bi Wooten APRN, POWDER AND PRIMER CANNING LEADER [address] [place] [address] Nurse Practitioner Advanced Practice Nurse 01/09/24 documented as of this encounter
--- OUTSIDE RECORDS SUMMARY | 2025-07-19 14:13 | XMS_ITS | Encounter Summary ---
Author Organization [facility] Address [address] [place] [address] Phone Care Team Providers Care Coal Deliverer Name Role Phone Hoang Trujillo Primary Care Provider + [phone] Bi Wooten APRN, INSTRUCTOR SUBSTITUTE COSMETOLOGY Unavailable + [phone] Reason for Visit * Reason Comments Medication Refill Encounter Details Date Type Department Care Team (Late st Contact Info) Description 02/24/2024 [facility]ill [facility] [address] [place] [address] Hoang Trujillo, PAC [address] [place] [address] Medication Refill Social History Tobacco [...] Telephone Encounter - Laron Martins RN - 02/24/2024 4:23 PM CDT Refill requested too soon. documented in this encounter Plan of Treatment Upcoming Encounters Date Type Department Care Team (Late st Contact Info) Description 01/06/2026 8:00 AM INFORMATION ARCHITECT Lab [facility] [address] [place] [address] [facility] 01/13/2026 9:30 AM INFORMATION ARCHITECT Office Visit [facility] [place] [address] [place] [address] Hoang Trujillo PAC [address] [place] [address] documented as of this encounter Visit Diagnoses Not on filedocumented in this encounter Additional Health Concerns Assessment Noted Time PHQ-9 Depression Total Score: 0 11/28/19 9:19 AM INFORMATION ARCHITECT documented as of this encounter Care Teams Coal Deliverer Relationship Specialty Start Date End Date Hoang Trujillo PAC [address] [place] [address] PCP - General Physician General Expeditor 05/02/23 Bi Wooten, SENIOR CATEGORY MANAGER, INSTRUCTOR SUBSTITUTE COSMETOLOGY [address] [place] [address] Nurse Practitioner Advanced Practice Nurse 01/09/24 documented as of this encounter
--- OUTSIDE RECORDS SUMMARY | 2025-07-19 14:13 | XMS_ITS | Encounter Summary ---
Author Organization [facility] Address [address] [place] [address] Phone Care Team Providers Care Drafter Landscape Name Role Phone Barbie Orellana APRN, FINISH MENDER Primary Care Provider Hoang Trujillo Primary Care Provider + [phone] Bi Wooten APRN, FINISH MENDER Unavailable + [phone] Reason for Visit * Reason Comments Medication Refill Encounter Details Date Type Department Care Team (Late st Contact Info) Description 03/22/2023 Refill [facility] - Primary Care - [place] [address] [place] [address] Barbie Orellana, TAN ROOM SUPERVISOR, FINISH MENDER [address] [place] [address] Medication Refill Social History Tobacco [...] Telephone Encounter - Hoang Trujillo PAC - 03/23/2023 10:07 AM CDT Rx request approved. * Telephone Encounter - Nohemi Parry RN - 03/22/2023 10:38 AM CDT Medication failed the protocol, provider to review and approve the medication order if appropriate. Requested Prescriptions Pending Prescriptions Disp Refills pantoprazole (PROTONIX) 40 MG Tablet Delayed Response [Pharmacy Med Name: PANTOPRAZOLE 40MG TABLETS] 180 Tablet 0 Sig: Take 1 Tablet by mouth 2 times daily. Proton Pump Inhibitors Protocol Passed - 03/22/2023 5:52 AM Passed - Visit with relevant provider in past 12 months or upcoming 90 days Recent Visits Date Type Provider Dept 03/29/22 Office Visit Barbie Orellana APRN, FINISH MENDER [facility] Showing recent visits within past 365 days and meeting all other requirements Future Appointments Date Type Provider Dept 04/18/23 Appointment Hoang Trujillo PAC [facility] Showing future appointments within next 90 days and meeting all other requirements terazosin (HYTRIN) 1 MG Capsule [Pharmacy Med Name: TERAZOSIN 1MG CAPSULES] 90 Capsule 0 Sig: Take 1 Capsule by mouth nightly. Not Delegated - Anti-adrenergic Antihypertensives Protocol Failed - 03/22/2023 5:52 AM Failed - This refill cannot be delegated Passed - Visit with relevant provider in past 12 months or upcoming 90 days Recent Visits Date Type Provider Dept 03/29/22 Office Visit Barbie Orellana APRN, FINISH MENDER [facility] [address] Showing recent visits within past 365 days and meeting all other requirements Future Appointments Date Type Provider Dept 04/18/23 Appointment Hoang Trujillo PAC [facility] [address] Showing future appointments within next 90 days and meeting all other requirements levothyroxine (SYNTHROID) 112 MCG Tablet [Pharmacy Med Name: LEVOTHYROXINE 0.112MG (112MCG) TABS] 90 Tablet 0 Sig: Take 1 Tablet by mouth daily. Thyroid Hormones Protocol Failed - 03/22/2023 5:52 AM Failed - Normal TSH in past 12 months TSH Date Value Ref Range Status 03/29/2022 0.108 (L) 0.270 - 4.200 mIU/L Final Passed - Visit with relevant provider in past 12 months or upcoming 90 days Recent Visits Date Type Provider Dept 03/29/22 Office Visit Barbie Orellana APRN, PAULETTE [facility] Showing recent visits within past 365 days and meeting all other requirements Future Appointments Date Type Provider Dept 04/18/23 Appointment Hoang Trujillo PAC [facility] Showing future appointments within next 90 days and meeting all other requirements documented in this encounter Plan of Treatment Upcoming Encounters Date Type Department Care Team (Late st Contact Info) Description 01/06/2026 8:00 AM HEAD GOLF COACH Lab [facility] [place] [address] [place] [address] [facility] 01/13/2026 9:30 AM HEAD GOLF COACH Office Visit [facility] [place] [address] [place] [address] Hoang Trujillo PAC [address] [place] [address] documented as of this encounter Visit Diagnoses Not on filedocumented in this encounter Additional Health Concerns Assessment Noted Time PHQ-9 Depression Total Score: 0 12/03/19 21 10:07 AM HEAD GOLF COACH documented as of this encounter Care Teams Drafter Landscape Relationship Specialty Start Date End Date Barbie Orellana APRN, FINISH MENDER [address] [place] [address] PCP - General Advanced Practice Nurse 06/05/18 Hoang Trujillo PAC [address] [place] [address] PCP - General Physician Rn Post Partum 05/02/23 Bi Wooten APRN, FINISH MENDER [address] [place] [address] Nurse Practitioner Advanced Practice Nurse 01/09/24 documented as of this encounter
--- OUTSIDE RECORDS SUMMARY | 2025-07-19 14:13 | XMS_ITS | Clinical Summary ---
Author Organization [facility] Address [address] [place] [address] Phone Care Team Providers Care Employee Relations Administrator Name Role Phone Hoang Trujillo Primary Care Provider + [phone] Bi Wooten APRN, PROSTHETICS LAB TECHNICIAN Unavailable + [phone] Allergies No known active allergies Medications atorvastatin (LIPITOR) 20 MG TabletIndications:H yperlipidemia, unspecified hyperlipidemia type Take 1 Tablet by mouth daily. 90 Tablet 3 5 Active levothyroxine (SYNTHROID) 112 MCG TabletIndications:H ypothyroidism, unspecified type TAKE 1 TABLET BY MOUTH EVERY DAY 90 Tablet 2 5 Active pantoprazole (PROTONIX) 40 MG Tablet Delayed Response TAKE 1 TABLET BY MOUTH TWICE A DAY 180 Tablet 2 5 Active tamsulosin (FLOMAX) 0.4 MG Capsule TAKE 2 CAPSULES BY MOUTH EVERY DAY IN THE EVENING 180 Capsule 2 5 Active finasteride (PROSCAR) 5 MG TabletIndications:B enign prostatic hyperplasia with urinary hesitancy TAKE 1 TABLET BY MOUTH EVERY DAY 90 Tablet 2 5 Active Active Problems Problem Noted Date Diagnosed Date Hyperlipidemia 01/10/2025 Prediabetes 01/10/2025 Hypothyroidism 01/10/2025 Encounters Date Type Department Care Team Description 06/07/2025 [facility] [place] [address] [place] [address] Hoang Trujillo, PAC Medication Refill 06/06/2025 Refill [facility] - Primary Care - [place] [address] [place] [address] Hoang Trujillo, PAC Medication Refill from Last 3 Months Immunizations Immunization Administration Dates Next Due Covid-19, Mrna, Lnp-s, Pf, 30 Mcg/0.3 Ml Dose (P fizer) 04/09/2021,02/27/2021 Family History Relation Name Status Comments Father Mother Social History Tobacco Use Types Packs/Day Years Used Date Smoking Tobacco: Former Cigarettes 1 20 Smokeless Tobacco: Never Tobacco Cessation:Counseling Given: Not Answered Alcohol Use Standard Drinks/Week Comments No 0 (1 standard drink = 0.6 oz pur e alcohol) [facility] Utilities Answer Date Recorded In the past 12 months has [employer], gas, oil, or water [employer] threatened to shut off services in your home? Patient declined 01/07/2025 Social Connection and Isolation Panel Answer Date Recorded In a typical week, how many times do you talk on the phone with family, friends, or neighbors? Patient declined 01/07/2025 How often do you get togethe r with friends or relatives? Patient declined 01/07/2025 How often do you attend christianity or anabaptist serv ices? Patient declined 01/07/2025 Do you belong to any clubs o r organizations such as christianity groups, unions, fraternal or athletic groups, or school groups? Patient declined 01/07/2025 How often do you attend meet ings of the clubs or organizations you belong to? Patient declined 01/07/2025 Are you , , di vorced, , never , or living with a partner? 01/07/2025 AUDIT-C Answer Date Recorded Q1: How often do you have a drink containing alc ohol? Patient declined 01/07/2025 Q2: How many drinks containi ng alcohol do you have on a typical day when you are drinking? Patient declined 01/07/2025 Q3: How often do you have si x or more drinks on one occasion? Patient declined 01/07/2025 Overall Financial Resource Strain (CARDIA) Answe r Date Recorded How hard is it for you to pa y for the very basics like food, housing, medical care, and heating? Patient declined 01/07/2025 PHQ-2 Answer Date Recorded Total Score - Questions 1-9 0 12/16 [facility] - Occupational Stress Questionnaire Answer Date Recorded Do you feel stress - tense, restless, nervous, or anxious, or unable to sleep at night because your mind is troubled all the time - these days? Patient declined 01/07/2025 Exercise Vital Sign Answer Date Recorde d On average, how many days pe r week do you engage in moderate to strenuous exercise (like a brisk walk)? 7 days 01/07/2025 On average, how many minutes do you engage in exercise at this level? 10 min 01/07/2025 Hunger Vital Sign Answer Date Recorded Within the past 12 months, y ou worried that your food would run out before you got the money to buy more. Patient declined Within the past 12 months, t he food you bought just didn't last and you didn't have money to get more. Patient declined PRAPARE - Transportation Answer Date Re corded In the past 12 months, has l ack of transportation kept you from medical appointments or from getting medications? No 12/16 In the past 12 months, has l ack of transportation kept you from meetings, work, or from getting things needed for daily living? No 01/07/2025 Housing Stability Vital Sign Answer Jose Ramon e Recorded In the last 12 months, was t here a time when you were not able to pay the mortgage or rent on time? Patient declined 01/07/20 25 In the past 12 months, how m any times have you moved where you were living? 1 01/07/2025 At any time in the past 12 m [facility], were you homeless or living in a halfway (including now)? No 01/07/2025 Sexually Active Control Partners Comments Yes Female Sex and Gender Information Value Date Recorded Sex Assigned at Not on file Legal Sex Male 8:02 PM CDT Gender Identity Not on file Sexual Orientation Not on file Last Filed Vital Signs Vital Sign Reading Time Taken Comments Blood Pressure 110/64 01/07/2025 9:59 AM MINE CAPTAIN Pulse 70 01/07/2025 9:59 AM MINE CAPTAIN Temperature 36.9 C (98.4 F) 01/07/2025 9:59 AM MINE CAPTAIN Respiratory Rate 20 01/07/2025 9:59 AM MINE CAPTAIN Oxygen Saturation 96% 01/07/2025 9:59 AM MINE CAPTAIN Inhaled Oxygen Concentration - - Weight 96.2 kg (212 lb) 01/07/2025 9:59 AM MINE CAPTAIN Height 172.7 cm (5' 8) 02/20/2024 11:03 AM CDT Body Mass Index 32.23 02/20/2024 11:03 AM CDT Plan of Treatment Upcoming Encounters Date Type Department Care Team (Late st Contact Info) Description 01/06/2026 8:00 AM MINE CAPTAIN [facility] [place] [address] [place] [address] [facility] 01/13/2026 9:30 AM MINE CAPTAIN Office Visit [facility] - [place] [address] [place] [address] Hoang Trujillo PAC [address] [place] [address] Health Maintenance Due Date Last Done Comments Hepatitis C Virus (HCV) Screening 1962 TdaP Immunization 1962 Cologuard 2007 Immunochemical Fecal Occult Blood 2007 Pneumococcal Immunization (50+ years) (1 of 1 - PCV) 2012 Zoster Immunization (1 of 2) 2012 Colonoscopy 03/10/2025 03/10/2015 Colorectal Cancer Screening 03/10/2025 Influenza Immunization (#1) 2025 SARS-COV-2 Immunization (3 - season) 2025 04/09/2021, 02/27/2021 Respiratory Syncytial Virus (RSV) Immunization (Adult) (1 - 1-dose 75+ series) 2037 PSA Discussion Completed 02/20/2024, 11/14, 03/29/2022, Additional history exists Hepatitis B Immunization Aged Out No longer eligible based on patient's age to complete this topic Human Papillomavirus (HPV) Immunization Aged Out No longer eligible based on patient's age to complete this topic Meningococcal Immunization (ACWY) Aged Out No longer eligible based on patient's age to complete this topic Rotavirus Immunization Aged Out No lo nger eligible based on patient's age to complete this topic Procedures Procedure Name Priority Date/Time Associated Diagnosis Comments PSA DIAGNOSTIC,TOTAL Routine 02/20/2024 11:31 AM CDT Elevated PSA COLONOSCOPY Routine 03/10/2015 from Last 3 Months or Most Recently Relevant to Health Maintenance Results * PSA DIAGNOSTIC,TOTAL (02/20/2024 11:31 AM CDT) PSA, TOTAL (PROSTATIC SPECIFIC ANTIGEN) 1.36 <4.00 ng/mL 02/20/2024 12:56 PM CDT [facility] Blood Venipuncture / Unknown 02/20/2024 11:31 AM CDT 02/20/2024 11:57 AM CDT Narrative [facility] - 02/20/2024 12:56 PM CDT PSA NOTE: The PSA value should be used in conjunction with information available from clinical evaluation and other diagnostic procedures. The ALINITY Total PSA assay is a Chemiluminescent Microparticle Immunoassay (CMIA) for the quantitative determination of total PSA (both free PSA and PSA complexed to [id number]) in human serum. Total PSA values obtained with different assay methods, including Johnson PSA assays, cannot be used interchangeably. Bi Wooten JEWEL DIAMETER GAUGER, PROSTHETICS LAB TECHNICIAN CHEMISTRY ORDERABLES F inal Result [facility] [address] [place] [address] * COLONOSCOPY (03/10/2015) us Nathalia Velazco MD PROCEDURE/MINOR SURGICAL OR DERABLES Final Result from Last 3 Months or Most Recently Relevant to Health Maintenance Insurance [facility] Care Teams Employee Relations Administrator Relationship Specialty Start Date End Date Hoang Trujillo, PAC [address] [place] [phone] PCP - General Physician Tube And Rod Straightener 05/02/23 Bi Wooten, JEWEL DIAMETER GAUGER, PROSTHETICS LAB TECHNICIAN [address] [place] [address] Nurse Practitioner Advanced Practice Nurse 01/09/24
--- OUTSIDE RECORDS SUMMARY | 2025-07-19 14:13 | XMS_ITS | Clinical Summary ---
Author Organization [employer] [id number] [place] [address] Address [address] [place] [address] Care Team Providers Care Administration Physician Name Role Phone Barbie Orellana APRN Primary Care Provider Allergies No known active allergies Medications atorvastatin (LIPITOR) 10 mg tablet atorvastatin 10 mg tablet TK 1 T PO D 1 Active pantoprazole (PROTONIX) 40 mg Tablet, Delayed Release (E.C.) pantoprazole 40 mg tablet,delayed release TK 1 T PO BID 1 Active levothyroxine 125 mcg tablet levothyroxine 125 mcg tablet TK 1 T PO D 1 Active tamsulosin (FLOMAX) 0.4 mg capsule tamsulosin 0.4 mg capsule TK 1 C PO D 1 Active terazosin (HYTRIN) 1 mg capsule TAKE 1 CAPSULE BY MOUTH EVERY NIGHT 1 Active Active Problems No known active problems Social History Tobacco Use Types Packs/Day Years Used Date Smoking Tobacco: Former Smokeless Tobacco: Never Sex and Gender Information Value Date Recorded Sex Assigned at Not on file Legal Sex Male 2:21 PM ANGLE SHEAR OPERATOR Gender Identity Not on file Sexual Orientation Not on file Last Filed Vital Signs Vital Sign Reading Time Taken Comments Blood Pressure - - Pulse - - Temperature - - Respiratory Rate - - Oxygen Saturation - - Inhaled Oxygen Concentration - - Weight 95.3 kg (210 lb) 12/15/2021 10:08 AM ANGLE SHEAR OPERATOR Height 172.7 cm (5' 8) 12/15/2021 10:08 AM ANGLE SHEAR OPERATOR Body Mass Index 31.93 12/15/2021 10:08 AM ANGLE SHEAR OPERATOR Plan of Treatment Health Maintenance Due Date Last Done Comments DTAP/TDAP/TD VACCINES (1 - Tdap) 1981 COLORECTAL SCREENING 2007 Colorectal Cancer Screening 2007 FIT-DNA Q 3 years 2007 FIT/FOBT Q 1 year 2007 Flex Sig/CT Colonography Q 5 years 2007 ZOSTER VACCINE (1 of 2) 2012 INFLUENZA VACCINE (#1) 2025 RSV VACCINE (60+ or ) (1 - 1-dose 75+ series) 2037 Insurance [employer] PPO Care Teams Administration Physician Relationship Specialty Start Date End Date Barbie Orellana APRN [address] [place] [address] PCP - General Nurse Practitioner Family 12/01/21
--- OUTSIDE RECORDS SUMMARY | 2025-07-19 14:13 | XMS_ITS | Encounter Summary ---
Author Organization [facility] Address [address] [place] [address] Phone Care Team Providers Care Chlorine Operator Name Role Phone Barbie Orellana APRN, OPERATOR LIGHTS Primary Care Provider Hoang Trujillo PAC Primary Care Provider + [phone] iB Wooten APRN, OPERATOR LIGHTS Unavailable + [phone] Reason for Visit * Reason Comments Medication Refill Encounter Details Date Type Department Care Team (Late Contact Info) Description 04/14/2021 Refill [facility] [place] [address] Dariel Garcia PAC Medication Refill Social [...] (Late Contact Info) Description 01/06/2026 8:00 AM LAP CUTTER TRUER OPERATOR Lab [facility] [place] [address] [facility] 01/13/2026 9:30 AM LAP CUTTER TRUER OPERATOR Office Visit [facility] - Primary Care - [place] [address] [place] [address] Hoang Trujillo PAC [address] [place] [address] documented as of this encounter Visit Diagnoses Diagnosis Hyperlipidemia, unspecified hyperlipidemia type documented in this encounter Additional Health Concerns Assessment Noted Time PHQ-9 Depression Total Score: 0 12/03/19 21 10:07 AM LAP CUTTER TRUER OPERATOR documented as of this encounter Care Teams Chlorine Operator Relationship Specialty Start Date End Date Barbie Orellana APRN, OPERATOR LIGHTS [address] [place] [address] PCP - General Advanced Practice Nurse 06/05/18 Hoang Trujillo PAC [address] [place] [address] PCP - General Physician Wood Car Builder 05/02/23 Bi Wooten APRN, OPERATOR LIGHTS [address] [place] [address] Nurse Practitioner Advanced Practice Nurse 01/09/24 documented as of this encounter
--- OUTSIDE RECORDS SUMMARY | 2025-07-19 14:13 | XMS_ITS | Encounter Summary ---
Author Organization [facility] Address [address] [place] [address] Phone Care Team Providers Care Decorating Machine Tender Name Role Phone Hoang Trujillo Primary Care Provider + [phone] Bi Wooten APRN, POLICY CHANGE CLERK Unavailable + [phone] Reason for Visit * Reason Comments Medication Refill Encounter Details Date Type Department Care Team (Late st Contact Info) Description 03/18/2024 Refill [facility] Family [facility] [address] [place] [address] Hoang Trujillo, PAC [address] [place] [address] Medication Refill Social History Tobacco [...] Telephone Encounter - Laron Martins RN - 03/19/2024 8:40 AM CDT Medication(s) refilled and signed per [facility] Chronic Medication Refill Standing Order for Pediatricand Adult Patients. Requested Prescriptions Pending Prescriptions Disp Refills finasteride (PROSCAR) 5 MG Tablet [Pharmacy Med Name: FINASTERIDE 5 MG TABLET] 90 Tablet 0 Sig: TAKE 1 TABLET BY MOUTH EVERY DAY Benign Prostatic Hyperplasia Medications Protocol Passed - 03/18/2024 9:47 AM Passed - Visit with relevant provider in past 12 months or upcoming 90 days Recent Visits Date Type Provider Dept 11/28/23 Office Visit Adelfo Rice MD [facility] 05/02/23 Office Visit Hoang Trujillo PAC [facility] Showing recent visits within past 365 days and meeting all other requirements Future Appointments No visits were found meeting these conditions. Showing future appointments within next 90 days and meeting all other requirements documented in this encounter Plan of Treatment Upcoming Encounters Date Type Department Care Team (Late st Contact Info) Description 01/06/2026 8:00 AM DATA MANAGEMENT SPECIALIST Lab [facility] [place] [address] [place] [address] [facility] 01/13/2026 9:30 AM DATA MANAGEMENT SPECIALIST Office Visit [facility] - [place] [address] [place] [address] Hoang Trujillo PAC [address] [place] [address] documented as of this encounter Visit Diagnoses Diagnosis Benign prostatic hyperplasia with urinary hesitancy documented in this encounter Additional Health Concerns Assessment Noted Time PHQ-9 Depression Total Score: 0 11/28/19 9:19 AM DATA MANAGEMENT SPECIALIST documented as of this encounter Care Teams Decorating Machine Tender Relationship Specialty Start Date End Date Hoang Trujillo PAC [address] [place] [address] PCP - General Physician Supervisor Wool Shearing 05/02/23 Bi Wooten APRN, POLICY CHANGE CLERK [address] [place] [address] Nurse Practitioner Advanced Practice Nurse 01/09/24 documented as of this encounter
--- OUTSIDE RECORDS SUMMARY | 2025-07-19 14:13 | XMS_ITS | Encounter Summary ---
Author Organization [facility] Address [address] [place] [address] Phone Care Team Providers Care Clinical Education Consultant Name Role Phone Hoang Trujillo Primary Care Provider + [phone] Bi Wooten APRN, CLINICAL BIOCHEMICAL GENETICIST Unavailable + [phone] Reason for Visit * Reason Comments Medication Refill Encounter Details Date Type Department Care Team (Late st Contact Info) Description 03/26/2024 Refill [facility] Family [facility] [address] [place] [address] Hoang Trujillo, PAC [address] [place] [address] Medication Refill Social History Tobacco [...] Telephone Encounter - Laron Martins RN - 03/26/2024 4:29 PM CDT Medication(s) refilled and signed per [facility] Chronic Medication Refill Standing Order for Pediatricand Adult Patients. Requested Prescriptions Pending Prescriptions Disp Refills pantoprazole (PROTONIX) 40 MG Tablet Delayed Response [Pharmacy Med Name: PANTOPRAZOLE SOD DR 40 MGTAB] 180 Tablet 0 Sig: TAKE 1 TABLET BY MOUTH TWICE A DAY Proton Pump Inhibitors Protocol Passed - 03/26/2024 4:28 PM Passed - Visit with relevant provider in past 12 months or upcoming 90 days Recent Visits Date Type Provider Dept 11/28/23 Office Visit Adelfo Rice MD [facility] 05/02/23 Office Visit Hoang Trujillo PAC [facility] Showing recent visits within past 365 days and meeting all other requirements Future Appointments No visits were found meeting these conditions. Showing future appointments within next 90 days and meeting all other requirements documented in this encounter Plan of Treatment Upcoming Encounters Date Type Department Care Team (Late st Contact Info) Description 01/06/2026 8:00 AM FORGING OPERATOR Lab [facility] [place] [address] [place] [address] [facility] 01/13/2026 9:30 AM FORGING OPERATOR Office Visit [facility] [place] [address] [place] [address] Hoang Trujillo PAC [address] [place] [address] documented as of this encounter Visit Diagnoses Not on filedocumented in this encounter Additional Health Concerns Assessment Noted Time PHQ-9 Depression Total Score: 0 11/28/19 9:19 AM FORGING OPERATOR documented as of this encounter Care Teams Clinical Education Consultant Relationship Specialty Start Date End Date Hoang Trujillo PAC [address] [place] [address] PCP - General Physician Gravity Meter Observer 05/02/23 Bi Wooten APRN, CLINICAL BIOCHEMICAL GENETICIST [address] [place] [address] Nurse Practitioner Advanced Practice Nurse 01/09/24 documented as of this encounter
--- OUTSIDE RECORDS SUMMARY | 2025-07-19 14:13 | XMS_ITS | Encounter Summary ---
Author Organization [facility] Address [address] [place] [address] Phone Care Team Providers Care Re Recording Mixer Name Role Phone Barbie Orellana BICYCLE SERVICE TECHNICIAN, CLOTH BLEACHING RANGE TENDER Primary Care Provider Hoang Trujillo PAC Primary Care Provider + [phone] Bi Wooten APRN, CLOTH BLEACHING RANGE TENDER Unavailable + [phone] Reason for Visit * Reason Comments Medication Refill Encounter Details Date Type Department Care Team (Late st Contact Info) Description 02/09/2021 Refill [facility] - [place] Care - [place] [address] [place] [address] Dariel Garcia PAC Medication Refill Social [...] on file Sexual Orientation Not on file COVID-19 Exposure Response Date Recorded In the last month, have you been in contact with someone who was confirmed or suspected to have Coronavirus / COVID-19? No / Unsure 02/09/2021 1:31 PM CDT documented as of this encounter Miscellaneous Notes * Telephone Encounter - Maggie Mcdonough RN - 02/09/2021 11:07 AM CDT Medication approved and signed per standing order protocol. documented in this encounter Plan of Treatment Upcoming Encounters Date Type Department Care Team (Late st Contact Info) Description 01/06/2026 8:00 AM FLIGHT CONTROLS ENGINEER Lab [facility] - [place] [address] [place] [address] [facility] 01/13/2026 9:30 AM FLIGHT CONTROLS ENGINEER Office Visit [facility] - [place] [address] [place] [address] Hoang Trujillo PAC [address] [place] [address] documented as of this encounter Visit Diagnoses Diagnosis Hyperlipidemia, unspecified hyperlipidemia type Hypothyroidism, unspecified type documented in this encounter Additional Health Concerns Assessment Noted Time PHQ-9 Depression Total Score: 0 12/03/19 21 10:07 AM FLIGHT CONTROLS ENGINEER documented as of this encounter Care Teams Re Recording Mixer Relationship Specialty Start Date End Date Barbie Orellana APRN, CLOTH BLEACHING RANGE TENDER [address] [place] [address] PCP - General Advanced Practice Nurse 06/05/18 Hoang Trujillo PAC [address] [place] [address] PCP - General Physician Drivers License Examiner 05/02/23 Bi Wooten APRN, CLOTH BLEACHING RANGE TENDER [address] [place] [address] Nurse Practitioner Advanced Practice Nurse 01/09/24 documented as of this encounter
--- OUTSIDE RECORDS SUMMARY | 2025-07-19 14:13 | XMS_ITS | Encounter Summary ---
Author Organization [facility] Address [address] [place] [address] Phone Care Team Providers Care Clothing Designer Name Role Phone Barbie Orellana APRN, PAINTLESS DENT REPAIR TECHNICIAN Primary Care Provider Hoang Trujillo PAC Primary Care Provider + [phone] Bi Wooten APRN, PAINTLESS DENT REPAIR TECHNICIAN Unavailable + [phone] Reason for Visit * Reason Comments Medication Refill Encounter Details Date Type Department Care Team (Late Contact Info) Description 05/10/2021 Refill [facility] [place] [address] Dariel Garcia PAC Medication Refill Social [...] (Late Contact Info) Description 01/06/2026 8:00 AM REGULATORY MANAGER Lab [facility] [place] [address] [facility] 01/13/2026 9:30 AM REGULATORY MANAGER Office Visit [facility] - Primary Care - [place] [address] [place] [address] Hoang Trujillo PAC [address] [place] [address] documented as of this encounter Visit Diagnoses Diagnosis Hypothyroidism, unspecified type documented in this encounter Additional Health Concerns Assessment Noted Time PHQ-9 Depression Total Score: 0 12/03/19 21 10:07 AM REGULATORY MANAGER documented as of this encounter Care Teams Clothing Designer Relationship Specialty Start Date End Date Barbie Orellana APRN, PAINTLESS DENT REPAIR TECHNICIAN [address] [place] [address] PCP - General Advanced Practice Nurse 06/05/18 Hoang Trujillo PAC [address] [place] [address] PCP - General Physician Detail Assembler 05/02/23 Bi Wooten APRN, PAINTLESS DENT REPAIR TECHNICIAN [address] [place] [address] Nurse Practitioner Advanced Practice Nurse 01/09/24 documented as of this encounter
--- OUTSIDE RECORDS SUMMARY | 2025-07-19 14:13 | XMS_ITS | Encounter Summary ---
Author Organization [facility] Address [address] [place] [address] Phone Care Team Providers Care Valver Name Role Phone Barbie Orellana MANAGER FRAUD, MERCHANDISING REPRESENTATIVE Primary Care Provider Hoang Trujillo Primary Care Provider + [phone] Bi Wooten MANAGER FRAUD, MERCHANDISING REPRESENTATIVE Unavailable + [phone] Reason for Visit * Reason Comments Medication Refill Encounter Details Date Type Department Care Team (Late st Contact Info) Description 06/15/2022 Refill [facility] - Primary Care - [place] [address] [place] [address] Barbie Orellana, MANAGER FRAUD, MERCHANDISING REPRESENTATIVE [address] [place] [address] Medication Refill Social History Tobacco [...] encounter Miscellaneous Notes * Telephone Encounter - Pavithra Garza RN - 06/15/2022 8:40 AM CDT Discontinued 03/30/2022-dose adjustment documented in this encounter Plan of Treatment Upcoming Encounters Date Type Department Care Team (Late st Contact Info) Description 01/06/2026 8:00 AM POTABLE WATER TREATMENT OPERATOR Lab [facility] [address] [place] [address] [facility] 01/13/2026 9:30 AM POTABLE WATER TREATMENT OPERATOR Office Visit [facility] [place] [address] [place] [address] Hoang Trujillo PAC [address] [place] [address] documented as of this encounter Visit Diagnoses Diagnosis Hypothyroidism, unspecified type documented in this encounter Additional Health Concerns Assessment Noted Time PHQ-9 Depression Total Score: 0 12/03/19 21 10:07 AM POTABLE WATER TREATMENT OPERATOR documented as of this encounter Care Teams Valver Relationship Specialty Start Date End Date Barbie Orellana APRN, MERCHANDISING REPRESENTATIVE [address] [place], [place] [id number] PCP - General Advanced Practice Nurse 06/05/18 Hoang Trujillo PAC [address] [place] [address] PCP - General Physician Line Department Supervisor 05/02/23 Bi Wooten APRN, MERCHANDISING REPRESENTATIVE [address] [place] [address] Nurse Practitioner Advanced Practice Nurse 01/09/24 documented as of this encounter
--- OUTSIDE RECORDS SUMMARY | 2025-07-19 14:13 | XMS_ITS | Encounter Summary ---
Author Organization [facility] Address [address] [place] [address] Phone Care Team Providers Care Inspector Clip On Sunglasses Name Role Phone Hoang Trujillo Primary Care Provider + [phone] Bi Wooten APRN, SEWER INSPECTOR Unavailable + [phone] Reason for Visit * Reason Comments Medication Refill Encounter Details Date Type Department Care Team (Late Contact Info) Description [facility] [place] [address] [place] [address] Hoang Trujillo PAC [address] [place] [address] Medication Refill Social History Tobacco [...] (Late Contact Info) Description 01/06/2026 8:00 AM INVESTMENT PROFESSIONAL [facility] [place] [address] [place] [address] [facility] 01/13/2026 9:30 AM INVESTMENT PROFESSIONAL Office [facility] - Primary Care - [place] [address] [place] [address] Hoang Trujillo PAC [address] [place] [address] documented as of this encounter Visit Diagnoses Diagnosis Hyperlipidemia, unspecified hyperlipidemia type documented in this encounter Additional Health Concerns Assessment Noted Time PHQ-9 Depression Total Score: 0 11/28/19 9:19 AM INVESTMENT PROFESSIONAL documented as of this encounter Care Teams Inspector Clip On Sunglasses Relationship Specialty Start Date End Date Hoang Trujillo PAC [address] [place] [phone] PCP - General Physician Retail Advisor 05/02/23 Bi Wooten APRN, SEWER INSPECTOR [address] [place] [address] Nurse Practitioner Advanced Practice Nurse 01/09/24 documented as of this encounter
--- NOTE | 2025-07-19 14:44 | ED_ITS ---
HPI - Back Pain/Injury General Chief Complaint: Back Pain/Injury Stated Complaint: lower back pain Time Seen by Provider: 07/19/25 14:43 Source: patient Mode of arrival: ambulatory Limitations: no limitations History of Present Illness HPI Narrative: patient is a 64-year-old male with lumbar spine pain for the past day without definite injury. Specifically lower back across. MD elicited complaint: back pain Pertinent past history: other ( None) Onset (ago): day(s) ( 1) Timing: constant Severity: moderate Pain scale (0-10): 5 Similar Symptoms Previously: Yes Quality: sharp Location: lumbar spine, right lower back and left lower back Radiation: none Exacerbating factors: movement Relieving factors: immobilization Context: while lifting, turning/twisting and bending Associated symptoms: denies other symptoms Treatments prior to arrival: other ( none) Related Data Home Medications ?Medication ?Instructions ?Recorded ?Confirmed ?Last Taken ?Type atorvastatin 10 mg tablet 10 mg PO DAILY 01/10/2010/16 Unknown History levothyroxine 125 mcg tablet 0.112 mcg PO DAILY 11/13/23 Unknown History tamsulosin 0.4 mg capsule 0.8 mg PO DAILY 01/10/20 Unknown History terazosin 1 mg capsule 1 mg PO DAILY 03/10/2111/13 Unknown History Allergies Allergy/AdvReac Type Severity Reaction Status Date / Time No Known Allergies Allergy Verified 07/19/25 14:10 Review of Systems Review of Systems: All systems reviewed & are unremarkable except as noted in HPI and below Constitutional: Constitutional: Reports no additional constitutional complaints Eyes: Eyes: Reports no additional eye complaints ENT: Reports system reviewed and no additional complaints, except as documented Cardiovascular: Cardiovascular: Reports no additional cardiovascular complaints Respiratory: Respiratory: Reports no additional respiratory complaints Gastrointestinal: Gastrointestinal: Reports no additional gastrointestinal complaints Genitourinary: Genitourinary: Reports no additional male genitourinary complaints Musculoskeletal: Musculoskeletal: Reports no additional musculoskeletal complaints Integumentary/Breasts: Skin/Breast: Reports system reviewed and no additional complaints, except as docu Neurologic: Reports system reviewed and no additional complaints, except as documented Psychiatric: Psychiatric: Reports no additional psychiatric complaints Endocrine: Endocrine: Reports no additional endocrine complaints Hematologic/Lymphatic: Hematologic/Lymphatic: Reports no additional hematologic/lymphatic complaints Allergic/Immunologic: Allergic/Immunologic: Reports no additional allergic/immunologic complaints [facility] Past Medical History Medical History Lumbosacral strain Sciatica Colon polyp BPH (benign prostatic hyperplasia) History of hypothyroidism Hyperlipidemia Surgical History Surgical History H/O hemorrhoidectomy History of carpal tunnel surgery H/O inguinal hernia repair Family History Family History Father , father at age 90 of unknown causes No problems noted. Social History Social History Social History: Patient is a former smoker but quit 20 years ago. He does not drink alcohol, smoke marijuana, or do drugs. He states at home and watches [employer]. His surrogate decision maker is his Carmen Payne. He wishes to be a full code Smoking packs per day: 1 Smoking cigarettes per day: 20.0 Years smoked: 20 Smoking pack-years: 20.00 Smoking status: Former smoker Tobacco type: cigarettes Alcohol intake: never Substance use: never Gender identity (if verbalized by the patient): Male Spiritual care concerns: No Agree to blood products: Yes Exam Const: General: healthy appearing Nutritional Appearance: well nourished Orientation/consciousness: patient oriented x3 HENMT: Head: normal to inspection Ears: external ears normal Face/Nose/Sinus: Normal external nose present Eyes: Conjunctivae: conjunctivae normal Pupils: Equal, round and reactive pupils present EOM: EOMs intact bilaterally Neck: Neck: normal visual inspection Chest: Chest palpation & inspection: normal inspection of the chest Resp: Effort & Inspection: normal respiratory effort and not labored Auscultation: clear to auscultation bilaterally and no crackles Cardio: Rate: regular rate Rhythm: regular rhythm Heart sounds: no murmurs GI: Inspection: non-distended GI Palp: Yes Soft to palpation and No Tenderness to palpation present (GI) Auscultation: normal bowel sounds : General: Yes bladder normal to palpation Back/Spine/Pelvis: Back: no CVA tenderness Other: tender lumbar spine to the paraspinal muscles on left and right side without central pain of the spine; straight leg test bilaterally is negative Skin: General skin exam: normal color Rashes: no rashes Wounds: no wounds Neuro: General: patient oriented x3, moves all extremities and no meningeal signs Extrem: General: normal to inspection Psych: Mental Status: mental status grossly normal Affect: normal affect Attitude: cooperative Course Vital Signs Vital signs: Vital Signs Temperature 36.3 C L 07/19/25 14:09 Pulse Rate 70 07/19/25 14:09 Respiratory Rate 18 07/19/25 14:09 Blood Pressure 138/82 07/19/25 14:09 Pulse Oximetry 97 07/19/25 14:09 Oxygen Delivery Room Air 07/19/25 14:09 Temperature 36.3 C L 07/19/25 14:09 Pulse Rate 70 07/19/25 14:09 Respiratory Rate 18 07/19/25 14:09 Blood Pressure 138/82 07/19/25 14:09 Pulse Oximetry 97 07/19/25 14:09 Oxygen Delivery Room Air 07/19/25 14:09 MDM - Back Pain/Injury MDM Narrative Medical decision making narrative: patient is a 64-year-old male with lower back pain for the past day. No injury. We will get x-rays. Toradol. Imaging Data Attestation: I personally reviewed and interpreted this imaging study as follows: Radiologist's impression: X-ray lumbar spine is negative for acute process Discharge Plan Discharge Clinical Impression: Lumbago Qualifiers: Chronicity: acute Back pain laterality: bilateral Sciatica presence: without sciatica Qualified Code(s): M54.50 - Low back pain, unspecified Patient Disposition: Home Condition: Stable Instructions: Acute Low Back Pain (ED) Patient Language: Russian Prescriptions: No Action terazosin 1 mg capsule 1 mg PO DAILY atorvastatin 10 mg tablet 10 mg PO DAILY tamsulosin 0.4 mg capsule 0.8 mg PO DAILY levothyroxine 125 mcg tablet 0.112 mcg PO DAILY ketorolac 10 mg tablet 10 mg PO TID PRN (Reason: pain) 5 Days Qty: 15 0RF methylprednisolone [Methylpred DP] 4 mg tablets,dose pack 4 mg PO DAILY Qty: 21 0RF cyclobenzaprine 10 mg tablet 10 mg PO TID Qty: 15 0RF pantoprazole [Protonix] 40 mg tablet,delayed release (DR/EC) 40 mg PO BID Qty: 60 0RF Follow-up/Referrals: UNKNOWN,DOCTOR [Non-Staff] Time of Disposition: 15:19
[2025-07-19] MEDS: KETOROLAC (*BKC) 60 MG/2 ML VIAL IM (14:51)
--- OUTSIDE RECORDS SUMMARY | 2025-07-19 15:34 | XMS_ITS | Encounter Summary ---
Author Organization [facility] Address [address] [place] [address] Phone Care Team Providers Care Crime Laboratory Analyst Name Role Phone Barbie Orellana APRN, PERSONNEL PSYCHOLOGIST Primary Care Provider Hoang Trujillo PAC Primary Care Provider + [phone] Bi Wooten APRN, PERSONNEL PSYCHOLOGIST Unavailable + [phone] Reason for Visit * Reason Comments Medication Refill Encounter Details Date Type Department Care Team (Late Contact Info) Description 04/05/2021 Refill [facility] [place] [address] Dariel Garcia PAC Medication Refill Social [...] (Late Contact Info) Description 01/06/2026 8:00 AM WATER SERVICE DISPATCHER Lab [facility] [place] [address] [facility] 01/13/2026 9:30 AM WATER SERVICE DISPATCHER Office Visit [facility] - Primary Care - [place] [address] [place] [address] Hoang Trujillo PAC [address] [place] [address] documented as of this encounter Visit Diagnoses Diagnosis Hyperlipidemia, unspecified hyperlipidemia type documented in this encounter Additional Health Concerns Assessment Noted Time PHQ-9 Depression Total Score: 0 12/03/19 21 10:07 AM WATER SERVICE DISPATCHER documented as of this encounter Care Teams Crime Laboratory Analyst Relationship Specialty Start Date End Date Barbie Orellana APRN, PERSONNEL PSYCHOLOGIST [address] [address] PCP - General Advanced Practice Nurse 06/05/18 Hoang Trujillo PAC [address] [place] [address] PCP - General Physician Solution Sales Senior Executive 05/02/23 Bi Wooten APRN, PERSONNEL PSYCHOLOGIST [address] [place] [address] Nurse Practitioner Advanced Practice Nurse 01/09/24 documented as of this encounter
--- OUTSIDE RECORDS SUMMARY | 2025-07-19 15:34 | XMS_ITS | Encounter Summary ---
Author Organization [facility] Address [address] [place] [address] Phone Care Team Providers Care Physical Therapy Coordinator Name Role Phone Barbie Orellana APRN, CNP Primary Care Provider Hoang Trujillo Primary Care Provider + [phone] Bi Wooten APRN, CNP Unavailable + [phone] Reason for Visit * Reason Comments Medication Refill Encounter Details Date Type Department Care Team (Late st Contact Info) Description 07/26/2020 Refill [facility] [place] [address] [place] [address] Barbie Orellana APRN, CNP [address] [place] [address] Medication Refill Social History Tobacco [...] Outpatient Visits 6 months ago Lung nodule [facility] - Barbie Ramos APN, CNP 7 months ago Chronic bilateral low back pain without sciatica [facility] - Barbie Ramos APN, CNP 10 months ago Acute bilateral low back pain without sciatica [facility] - Barbie Ramos APN, CNP 2 years ago Preventative health care (Adult) [facility] - Barbie Ramos APN, CNP 2 years ago Viral upper respiratory tract infection [facility] - Barbie Ramos APN, CNP Upcoming Appointments [facility] - Recent and Past Visits Recent Visits Date Type Provider Dept 01/29/20 Office Visit Barbie Orellana APN, CNP [facility] 12/04/19 Office Visit Barbie Orellana APN, CNP [facility] 09/07/19 [facility] Visit [facility] recent visits within past 460 days [...] st Contact Info) Description 01/06/2026 8:00 AM CHIEF LEGAL OFFICER [facility] [place] [address] [place] [address] [place] [facility] 01/13/2026 9:30 AM CHIEF LEGAL OFFICER Office Visit [facility] - [place] [address] [place] [address] Hoang Trujillo PAC [address] [place] [address] documented as of this encounter Visit Diagnoses Not on filedocumented in this encounter Additional Health Concerns Assessment Noted Time PHQ-9 Depression Total Score: 0 06/05/20 18 1:00 PM CDT documented as of this encounter Care Teams Physical Therapy Coordinator Relationship Specialty Start Date End Date Barbie Orellana APRN, DOWELER [address] [place] [address] PCP - General Advanced Practice Nurse 06/05/18 Hoang Trujillo, PAC [address] [place] [address] PCP - General Physician Hatchery Attendant 05/02/23 Bi Wooten APRN, DOWELER [address] [place] [address] Nurse Practitioner Advanced Practice Nurse 01/09/24 documented as of this encounter
--- OUTSIDE RECORDS SUMMARY | 2025-07-19 15:34 | XMS_ITS | Encounter Summary ---
Author Organization [facility] Address [address] [place] [address] Phone Care Team Providers Care Dianeticist Name Role Phone Barbie Orellana NATIONAL RECRUITER, ANIMAL CARETAKER Primary Care Provider Hoang Trujillo PAC Primary Care Provider + [phone] Bi Wooten APRN, ANIMAL CARETAKER Unavailable + [phone] Reason for Visit * Reason Comments Medication Refill Encounter Details Date Type Department Care Team (Late st Contact Info) Description 02/09/2021 Refill [facility] - Primary Care - [place] [address] [place] [address] Dariel Garcia PAC Medication Refill [...] st Contact Info) Description 01/06/2026 8:00 AM BAND AND CUFF CUTTER Lab [facility] [place] [address] [place] [address] [facility] 01/13/2026 9:30 AM BAND AND CUFF CUTTER Office Visit [facility] [place] [address] [place] [address] Hoang Trujillo PAC [address] [place] [address] documented as of this encounter Visit Diagnoses Diagnosis Hyperlipidemia, unspecified hyperlipidemia type Hypothyroidism, unspecified type documented in this encounter Additional Health Concerns Assessment Noted Time PHQ-9 Depression Total Score: 0 12/03/19 21 10:07 AM BAND AND CUFF CUTTER documented as of this encounter Care Teams Dianeticist Relationship Specialty Start Date End Date Barbie Orellana APRN, ANIMAL CARETAKER [address] [place] [address] PCP - General Advanced Practice Nurse 06/05/18 Hoang Trujillo PAC [address] [place] [address] PCP - General Physician Wafer Substrate Tester 05/02/23 Bi Wooten APRN, ANIMAL CARETAKER [address] [place] [address] Nurse Practitioner Advanced Practice Nurse 01/09/24 documented as of this encounter
--- OUTSIDE RECORDS SUMMARY | 2025-07-19 15:34 | XMS_ITS | Encounter Summary ---
Author Organization [facility] Address [address] [address] Phone Care Team Providers Care Metal Building Assembler Name Role Phone Barbie Orellana APRN, TEACHER ELEMENTARY SCHOOL Primary Care Provider Hoang Trujillo PAC Primary Care Provider + [phone] Bi Wooten APRN, TEACHER ELEMENTARY SCHOOL Unavailable + [phone] Reason for Visit * Reason Comments Medication Refill Encounter Details Date Type Department Care Team (Late Contact Info) Description 04/14/2021 Refill [facility] [place] [address] Dariel Garcia PAC Medication Refill Social [...] (Late Contact Info) Description 01/06/2026 8:00 AM INTERNATIONAL MARKETING EXECUTIVE Lab [facility] [place] [address] [facility] 01/13/2026 9:30 AM INTERNATIONAL MARKETING EXECUTIVE Office Visit [facility] - Primary Care - [place] [address] [place] [address] Hoang Trujillo PAC [address] [place] [address] documented as of this encounter Visit Diagnoses Diagnosis Hyperlipidemia, unspecified hyperlipidemia type documented in this encounter Additional Health Concerns Assessment Noted Time PHQ-9 Depression Total Score: 0 12/03/19 21 10:07 AM INTERNATIONAL MARKETING EXECUTIVE documented as of this encounter Care Teams Metal Building Assembler Relationship Specialty Start Date End Date Barbie Orellana APRN, TEACHER ELEMENTARY SCHOOL [address] [place] [address] PCP - General Advanced Practice Nurse 06/05/18 Hoang Trujillo PAC [address] [place] [address] PCP - General Physician Dicer Operator 05/02/23 Bi Wooten APRN, TEACHER ELEMENTARY SCHOOL [address] [place] [address] Nurse Practitioner Advanced Practice Nurse 01/09/24 documented as of this encounter
--- OUTSIDE RECORDS SUMMARY | 2025-07-19 15:35 | XMS_ITS | Encounter Summary ---
Author Organization [facility] Address [address] [place] [address] Phone Care Team Providers Care Water Valve Repairer Name Role Phone Barbie Orellana APRN, EXPERIMENTAL WORKER Primary Care Provider Hoang Trujillo PAC Primary Care Provider + [phone] Bi Wooten APRN, EXPERIMENTAL WORKER Unavailable + [phone] Reason for Visit * Reason Comments Medication Refill Encounter Details Date Type Department Care Team (Late Contact Info) Description 05/10/2021 Refill [facility] [place] [address] Dariel Garcia PAC Medication Refill Social [...] (Late Contact Info) Description 01/06/2026 8:00 AM DOUGH PANNER Lab [facility] [place] [address] [facility] 01/13/2026 9:30 AM DOUGH PANNER Office Visit [facility] - Primary Care - [place] [address] [place] [address] Hoang Trujillo PAC [address] [place] [address] documented as of this encounter Visit Diagnoses Diagnosis Hypothyroidism, unspecified type documented in this encounter Additional Health Concerns Assessment Noted Time PHQ-9 Depression Total Score: 0 12/03/19 21 10:07 AM DOUGH PANNER documented as of this encounter Care Teams Water Valve Repairer Relationship Specialty Start Date End Date Barbie Orellana APRN, EXPERIMENTAL WORKER [address] [place] [address] PCP - General Advanced Practice Nurse 06/05/18 Hoang Trujillo PAC [address] [place] [address] PCP - General Physician Consumer Insight Manager 05/02/23 Bi Wooten APRN, EXPERIMENTAL WORKER [address] [place] [address] Nurse Practitioner Advanced Practice Nurse 01/09/24 documented as of this encounter
--- OUTSIDE RECORDS SUMMARY | 2025-07-19 15:35 | XMS_ITS | Encounter Summary ---
Author Organization [facility] Address [address] [place] [address] Phone Care Team Providers Care Debug Technician Name Role Phone Barbie Orellana SEWER SYSTEM SUPERVISOR, TRUCK RENTAL CLERK Primary Care Provider Hoang Trujillo Primary Care Provider + [phone] Bi Wooten SEWER SYSTEM SUPERVISOR, TRUCK RENTAL CLERK Unavailable + [phone] Reason for Visit * Reason Comments Medication Refill Encounter Details Date Type Department Care Team (Late st Contact Info) Description 06/15/2022 Refill [facility] [place] Care - [place] [address] [place] [address] Barbie Orellana, SEWER SYSTEM SUPERVISOR, TRUCK RENTAL CLERK [address] [place] [address] Medication Refill Social History Tobacco [...] st Contact Info) Description 01/06/2026 8:00 AM ARBORICULTURIST Lab [facility] [place] [address] [place] [address] [facility] 01/13/2026 9:30 AM ARBORICULTURIST Office Visit [facility] [place] [address] [place] [address] Hoang Trujillo PAC [address] [place] [address] documented as of this encounter Visit Diagnoses Diagnosis Hypothyroidism, unspecified type documented in this encounter Additional Health Concerns Assessment Noted Time PHQ-9 Depression Total Score: 0 12/03/19 21 10:07 AM ARBORICULTURIST documented as of this encounter Care Teams Debug Technician Relationship Specialty Start Date End Date Barbie Orellana APRN, TRUCK RENTAL CLERK [address] [place], [place] [phone] PCP - General Advanced Practice Nurse 06/05/18 Hoang Trujillo PAC [address] [place] [address] PCP - General Physician Wire Frame Dipper 05/02/23 Bi Wooten APRN, TRUCK RENTAL CLERK [address] [place] [address] Nurse Practitioner Advanced Practice Nurse 01/09/24 documented as of this encounter
--- OUTSIDE RECORDS SUMMARY | 2025-07-19 15:35 | XMS_ITS | Encounter Summary ---
Author Organization [facility] Address [address] [place] [address] Phone Care Team Providers Care Home Teaching Grades 7 And 8 Teacher Name Role Phone Hoang Trujillo Primary Care Provider + [phone] Bi Wooten APRN, NAIL TECH Unavailable + [phone] Reason for Visit * Reason Comments Medication Refill Encounter Details Date Type Department Care Team (Late st Contact Info) Description 03/02/2024 Refill [facility] - Primary Care - [place] [address] [place] [address] Hoang Trujillo PAC [address] [place] [address] Medication Refill Social History Tobacco [...] PM CDT Medication(s) refilled and signed per [facility] Chronic Medication Refill Standing Order for Pediatricand [...] Dept 11/28/23 Office Visit Adelfo Rice MD [facility] 05/02/23 Office Visit Hoang Trujillo PAC [facility] Showing recent visits within past 365 days and meeting all other requirements Future Appointments No visits were found meeting these conditions. Showing future appointments within next 90 days and meeting all other requirements documented in this encounter Plan of Treatment Upcoming Encounters Date Type Department Care Team (Late st Contact Info) Description 01/06/2026 8:00 AM INTERNATIONAL CONTROLLER Lab [facility] [address] [place] [address] [facility] 01/13/2026 9:30 AM INTERNATIONAL CONTROLLER Office Visit [facility] [address] [place] [address] Hoang Trujillo PAC [address] [place] [address] documented as of this encounter Visit Diagnoses Not on filedocumented in this encounter Additional Health Concerns Assessment Noted Time PHQ-9 Depression Total Score: 0 11/28/19 9:19 AM INTERNATIONAL CONTROLLER documented as of this encounter Care Teams Home Teaching Grades 7 And 8 Teacher Relationship Specialty Start Date End Date Hoang Trujillo PAC [address] [place] [address] PCP - General Physician Paper Processing Machine Helper 05/02/23 Bi Wooten, CAPRI, NAIL TECH [address] [place] [address] Nurse Practitioner Advanced Practice Nurse 01/09/24 documented as of this encounter
--- OUTSIDE RECORDS SUMMARY | 2025-07-19 15:35 | XMS_ITS | Encounter Summary ---
Author Organization [facility] Address [address] [place] [address] Phone Care Team Providers Care Territory Supervisor Name Role Phone Hoang Trujillo Primary Care Provider + [phone] Bi Wooten APRN, HISTOLOGY TECHNOLOGIST Unavailable + [phone] Reason for Visit * Reason Comments Medication Refill Encounter Details Date Type Department Care Team (Late st Contact Info) Description 02/24/2024 Refill [facility] [address] [place] [address] Hoang Trujillo, PAC [address] [place] [address] Medication Refill Social History Tobacco [...] st Contact Info) Description 01/06/2026 8:00 AM PURLER Lab [facility] [address] [place] [address] [facility] 01/13/2026 9:30 AM PURLER Office Visit [facility] [address] [place] [address] Hoang Trujillo PAC [address] [place] [address] documented as of this encounter Visit Diagnoses Not on filedocumented in this encounter Additional Health Concerns Assessment Noted Time PHQ-9 Depression Total Score: 0 11/28/19 9:19 AM PURLER documented as of this encounter Care Teams Territory Supervisor Relationship Specialty Start Date End Date Hoang Trujillo PAC [address] [place] [address] PCP - General Physician Pulmonary Disease Specialist 05/02/23 Bi Wooten, DIRECTOR SPEECH AND HEARING, HISTOLOGY TECHNOLOGIST [address] [place] [address] Nurse Practitioner Advanced Practice Nurse 01/09/24 documented as of this encounter
--- OUTSIDE RECORDS SUMMARY | 2025-07-19 15:35 | XMS_ITS | Clinical Summary ---
Author Organization [facility] Address [address] [place] [address] Phone Care Team Providers Care Application Spec Name Role Phone Hoang Trujillo Primary Care Provider + [phone] Bi Wooten APRN, CHINESE INSTRUCTOR Unavailable + [phone] Allergies No known active allergies Medications atorvastatin [...] Type Department Care Team Description 06/07[facility]20[facility] [place] [address] [place] [address] Hoang Trujillo, PAC Medication Refill 06/06/2025 Refill [facility] - Primary Care - [place] [address] [place] [address] Hoang Trujillo, PAC Medication Refill from [...] drink = 0.6 oz pur e alcohol) [facility] Utilities Answer Date Recorded In the past 12 months has [place], gas, oil, or water [employer] [place] threatened to shut off services in your home? Patient declined 01/07/2025 Social Connection and Isolation Panel Answer Date Recorded In a typical week, how many times do you talk on the phone with family, friends, or neighbors? Patient declined 01/07/2025 How often do you get togethe r with friends or relatives? Patient declined 01/07/2025 How often do you attend advent or yazidism serv ices? Patient declined 01/07/2025 Do you belong to any clubs o r organizations such as advent groups, unions, fraternal or athletic groups, or [...] Total Score - Questions 1-9 0 12/16 [facility] - Occupational Stress [...] any time in the past 12 m [facility], were you homeless or living in a long term (including now)? No 01/07/2025 Sexually Active Control Partners Comments Yes Female Sex and Gender Information Value Date Recorded Sex Assigned at Not on file Legal Sex Male 8:02 PM CDT Gender Identity Not on file Sexual Orientation Not on file Last Filed Vital Signs Vital Sign Reading Time Taken Comments Blood Pressure 110/64 01/07/2025 9:59 AM FLAT CLOTHIER Pulse 70 01/07/2025 9:59 AM FLAT CLOTHIER Temperature 36.9 C (98.4 F) 01/07/2025 9:59 AM FLAT CLOTHIER Respiratory Rate 20 01/07/2025 9:59 AM FLAT CLOTHIER Oxygen Saturation 96% 01/07/2025 9:59 AM FLAT CLOTHIER Inhaled Oxygen Concentration - - Weight 96.2 kg (212 lb) 01/07/2025 9:59 AM FLAT CLOTHIER Height 172.7 cm (5' 8) 02/20/2024 11:03 AM CDT Body Mass Index 32.23 02/20/2024 11:03 AM CDT Plan of Treatment Upcoming Encounters Date Type Department Care Team (Late st Contact Info) Description 01/06/2026 8:00 AM FLAT CLOTHIER Lab [facility] [place] [address] [place] [address] [facility] 01/13/2026 9:30 AM FLAT CLOTHIER Office Visit [facility] - [place] [address] [place] [address] Hoang Trujillo PAC [address] [place] [address] Health Maintenance Due Date Last [...] 1.36 <4.00 ng/mL 02/20/2024 12:56 PM CDT [facility] Blood Venipuncture / Unknown 02/20/2024 11:31 AM CDT 02/20/2024 11:57 AM CDT Narrative [facility] - 02/20/2024 12:56 PM CDT PSA NOTE: The PSA value should be used in conjunction with information available from clinical evaluation and other diagnostic procedures. The ALINITY Total PSA assay is a Chemiluminescent Microparticle Immunoassay (CMIA) for the quantitative determination of total PSA (both free PSA and PSA complexed to [id number]) in human serum. Total PSA values obtained with different assay methods, including Johnson PSA assays, cannot be used interchangeably. Bi Wooten DOUGH BRAKE MACHINE OPERATOR, CHINESE INSTRUCTOR CHEMISTRY ORDERABLES F inal Result [facility] [address] [place] [address] * COLONOSCOPY (03/10/2015) us Nathalia Velazco MD PROCEDURE/MINOR SURGICAL OR DERABLES Final Result from Last 3 Months or Most Recently Relevant to Health Maintenance Insurance [id number] Care Teams Application Spec Relationship Specialty Start Date End Date Hoang Trjuillo, PAC [address] [place] [address] PCP - General Physician Lens Coater 05/02/23 Bi Wooten, DOUGH BRAKE MACHINE OPERATOR, CHINESE INSTRUCTOR [address] [place] [address] Nurse Practitioner Advanced Practice Nurse 01/09/24
--- OUTSIDE RECORDS SUMMARY | 2025-07-19 15:35 | XMS_ITS | Clinical Summary ---
Author Organization [facility] Address [address] [place] [address] Care Team Providers Care Punch Press Setter Name Role Phone Nathalia Velazco MD Primary Care Provider [phone] Source Comments [facility],non-owned Affiliates and Associated Physician Practices is amultiple site organization consisting of ambulatory clinics and hospital sitesin [place], [place], [place] and [place]. This disclosure is being madepursuant to the Care Everywhere program and may not contain all information available regarding this patient. Last updated 18.[employer] [facility] Allergies No known active allergies Medications * Be aware that medications may not be up to date on this document. Alwaysverify current medications with the patient. Other as needed. Pain medication Active Social History Tobacco Use Types Packs/Day Years Used Date Smoking Tobacco: Never Assessed Sex and Gender Information Value Date Recorded Sex Assigned at Not on file Legal Sex Male 5:59 AM PARKING INSPECTOR Gender Identity Not on file Sexual Orientation [...] patient's age to complete this topic [place] [address] [place] [address] [place] [address] Care Teams Punch Press Setter Relationship Specialty Start Date End Date Nathalia Velazco MD PCP - General Family Medicine 11/02/11
--- OUTSIDE RECORDS SUMMARY | 2025-07-19 15:35 | XMS_ITS | Encounter Summary ---
Author Organization [facility] Address [address] [place] [address] Phone Care Team Providers Care Replenishment Associate Name Role Phone Barbie Orellana APRN, SCABBLER Primary Care Provider Hoang Trujillo Primary Care Provider + [phone] Bi Wooten APRN, SCABBLER Unavailable + [phone] Reason for Visit * Reason Comments Medication Refill Encounter Details Date Type Department Care Team (Late st Contact Info) Description 04/21/2023 [facility] - [place] [address] [place] [address] Barbie Orellana, ADULT LITERACY INSTRUCTOR, SCABBLER [address] [place] [address] Medication Refill Social History Tobacco [...] Provider Dept 04/25/23 Appointment Hoang Trujillo PAC [facility] Showing future appointments within next 90 days and meeting all other requirements documented in this encounter Plan of Treatment Upcoming Encounters Date Type Department Care Team (Late st Contact Info) Description 01/06/2026 8:00 AM BEER STILL RUNNER COMPOUNDER Lab [facility] - Primary Care - [place] [address] [place] [address] [facility] 01/13/2026 9:30 AM BEER STILL RUNNER COMPOUNDER Office Visit [facility] - Primary Care - [place] [address] [place] [address] Hoang Trujillo PAC [address] [place] [address] documented as of this encounter Visit Diagnoses Diagnosis Hyperlipidemia, unspecified hyperlipidemia type documented in this encounter Additional Health Concerns Assessment Noted Time PHQ-9 Depression Total Score: 0 12/03/19 21 10:07 AM BEER STILL RUNNER COMPOUNDER documented as of this encounter Care Teams Replenishment Associate Relationship Specialty Start Date End Date Barbie Orellana ADULT LITERACY INSTRUCTOR, SCABBLER [address] [place], [place] [id number] PCP - General Advanced Practice Nurse 06/05/18 Hoang Trujillo PAC [address] [place] [address] PCP - General Physician Inspector [employer] 05/02/23 Bi Wooten APRN, SCABBLER [address] [place] [address] Nurse Practitioner Advanced Practice Nurse 01/09/24 documented as of this encounter
--- OUTSIDE RECORDS SUMMARY | 2025-07-19 15:35 | XMS_ITS | Clinical Summary ---
Author Organization [facility] [address] [place] [address] Address [address] [place] [address] Care Team Providers Care Help Desk Agent Name Role Phone Barbie Orellana APRN Primary [...] on file Legal Sex Male 2:[address]ER Gender Identity Not on file Sexual Orientation Not on file Last Filed Vital Signs Vital Sign Reading Time Taken Comments Blood Pressure - - Pulse - - Temperature - - Respiratory Rate - - Oxygen Saturation - - Inhaled Oxygen Concentration - - Weight 95.3 kg (210 lb) 12/15/2021 10:[address]ISSIONER Height 172.7 cm (5' 8) 12/15/2021 10:[address] COMMISSIONER Body Mass Index 31.93 12/15/2021 10:[address] COMMISSIONER Plan of Treatment Health Maintenance Due Date Last Done Comments DTAP/TDAP/TD VACCINES (1 - Tdap) 1981 COLORECTAL SCREENING 2007 Colorectal Cancer Screening 2007 FIT-DNA Q 3 years 2007 FIT/FOBT Q 1 year 2007 Flex Sig/CT Colonography Q 5 years 2007 ZOSTER VACCINE (1 of 2) 2012 INFLUENZA VACCINE (#1) 2025 RSV VACCINE (60+ or ) (1 - 1-dose 75+ series) 2037 Insurance [employer] PPO Care Teams Help Desk Agent Relationship Specialty Start Date End Date Barbie Orellana APRN [address] [place] [address] PCP - General Nurse Practitioner Family 12/01/21
--- OUTSIDE RECORDS SUMMARY | 2025-07-19 15:35 | XMS_ITS | Encounter Summary ---
Author Organization [facility] Address [address] [place] [address] Phone Care Team Providers Care Rouge Sifter And Miller Name Role Phone Hoang Trujillo Primary Care Provider + [phone] Bi Wooten APRN, INDUSTRIAL CLEANING TECHNICIAN Unavailable + [phone] Reason for Visit * Reason Comments Medication Refill Encounter Details Date Type Department Care Team (Late st Contact Info) Description 03/26/2024 Refill [facility] Family [facility] [address] [place] [address] Hoang Trujillo, PAC [address] [place] [address] Medication Refill Social History Tobacco [...] Dept 11/28/23 Office Visit Adelfo Rice MD [facility] 05/02/23 Office Visit Hoang Trujillo PAC [facility] Showing recent visits within past 365 days and meeting all other requirements Future Appointments No visits were found meeting these conditions. Showing future appointments within next 90 days and meeting all other requirements documented in this encounter Plan of Treatment Upcoming Encounters Date Type Department Care Team (Late st Contact Info) Description 01/06/2026 8:00 AM MILKING MACHINE MECHANIC Lab [facility] [address] [place] [address] [facility] 01/13/2026 9:30 AM MILKING MACHINE MECHANIC Office Visit [facility] [address] [place] [address] Haong Trujillo PAC [address] [place] [address] documented as of this encounter Visit Diagnoses Not on filedocumented in this encounter Additional Health Concerns Assessment Noted Time PHQ-9 Depression Total Score: 0 11/28/19 9:19 AM MILKING MACHINE MECHANIC documented as of this encounter Care Teams Rouge Sifter And Miller Relationship Specialty Start Date End Date Hoang Trujillo PAC [address] [place] [address] PCP - General Physician Clarifier Operator Helper 05/02/23 Bi Wooten APRN, INDUSTRIAL CLEANING TECHNICIAN [address] [place] [address] Nurse Practitioner Advanced Practice Nurse 01/09/24 documented as of this encounter
--- OUTSIDE RECORDS SUMMARY | 2025-07-19 15:35 | XMS_ITS | Encounter Summary ---
Author Organization [facility] Address [address] [place] [address] Phone Care Team Providers Care It Data Architect Name Role Phone Hoang Trujillo Primary Care Provider + [phone] Bi Wooten APRN, MAINTENANCE SUPERINTENDENT Unavailable + [phone] Reason for Visit * Reason Comments Medication Refill Encounter Details Date Type Department Care Team (Late Contact Info) Description [facility] [place] [address] [place] [address] Hoang Trujillo PAC [address] [place] [address] Medication Refill Social History Tobacco [...] (Late Contact Info) Description 01/06/2026 8:00 AM OUTPATIENT CLERK [facility] [place] [address] [place] [address] [facility] 01/13/2026 9:30 AM OUTPATIENT CLERK Office Visit [facility] - Primary Care - [place] [address] [place] [address] Hoang Trujillo PAC [address] [place] [address] documented as of this encounter Visit Diagnoses Diagnosis Hyperlipidemia, unspecified hyperlipidemia type documented in this encounter Additional Health Concerns Assessment Noted Time PHQ-9 Depression Total Score: 0 11/28/19 9:19 AM OUTPATIENT CLERK documented as of this encounter Care Teams It Data Architect Relationship Specialty Start Date End Date Hoang Trujillo PAC [address] [place] [address] PCP - General Physician Director Hardware 05/02/23 Bi Wooten APRN, MAINTENANCE SUPERINTENDENT [address] [place] [address] Nurse Practitioner Advanced Practice Nurse 01/09/24 documented as of this encounter
--- OUTSIDE RECORDS SUMMARY | 2025-07-19 15:35 | XMS_ITS | Encounter Summary ---
Author Organization [facility] Address [address] [place] [address] Phone Care Team Providers Care Lead Tinner Name Role Phone Hoang Trujillo Primary Care Provider + [phone] Bi Wooten APRN, CLOTH PRINTING BACK TENDER Unavailable + [phone] Reason for Visit * Reason Comments Medication Refill Encounter Details Date Type Department Care Team (Late st Contact Info) Description 03/18/2024 Refill [facility] [address] [place] [address] Hoang Trujillo, PAC [address] [place] [address] Medication Refill Social History Tobacco [...] Dept 11/28/23 Office Visit Adelfo Rice MD [facility] 05/02/23 Office Visit Hoang Trujillo PAC [facility] Showing recent visits within past 365 days and meeting all other requirements Future Appointments No visits were found meeting these conditions. Showing future appointments within next 90 days and meeting all other requirements documented in this encounter Plan of Treatment Upcoming Encounters Date Type Department Care Team (Late st Contact Info) Description 01/06/2026 8:00 AM CATERPILLAR MECHANIC Lab [facility] [address] [place] [address] [facility] 01/13/2026 9:30 AM CATERPILLAR MECHANIC Office Visit [facility] [place] [address] [place] [address] Hoang Trujillo PAC [address] [place] [address] documented as of this encounter Visit Diagnoses Diagnosis Benign prostatic hyperplasia with urinary hesitancy documented in this encounter Additional Health Concerns Assessment Noted Time PHQ-9 Depression Total Score: 0 11/28/19 9:19 AM CATERPILLAR MECHANIC documented as of this encounter Care Teams Lead Tinner Relationship Specialty Start Date End Date Hoang Trujillo PAC [address] [place] [address] PCP - General Physician Bran Mixer 05/02/23 Bi Wooten APRN, CLOTH PRINTING BACK TENDER [address] [place] [address] Nurse Practitioner Advanced Practice Nurse 01/09/24 documented as of this encounter
--- OUTSIDE RECORDS SUMMARY | 2025-07-19 15:35 | XMS_ITS | Encounter Summary ---
Author Organization [facility] Address [address] [place] [address] Phone Care Team Providers Care Dial Painter Name Role Phone Barbie Orellana APRN, BARREL RIFLER OPERATOR Primary Care Provider Hoang Truijllo Primary Care Provider + [phone] Bi Wooten APRN, BARREL RIFLER OPERATOR Unavailable + [phone] Reason for Visit * Reason Comments Medication Refill Encounter Details Date Type Department Care Team (Late st Contact Info) Description 03/22/2023 Refill [facility] - Primary Care - [place] [address] [place] [address] Barbie Orellana, DEVELOPMENT ASSOCIATE, BARREL RIFLER OPERATOR [address] [place] [address] Medication Refill Social History Tobacco [...] Dept 03/29/22 Office Visit Barbie Orellana APRN, BARREL RIFLER OPERATOR [facility] [employer] [address] Showing recent visits within past 365 days and meeting all other requirements Future Appointments Date Type Provider Dept 04/18/23 Appointment Hoang Trujillo PAC [email or web address] [employer] [facility] Showing future appointments within next 90 [...] Dept 03/29/22 Office Visit Barbie Orellana APRN, BARREL RIFLER OPERATOR [email or web address] [employer] [address] Showing recent visits within past 365 days and meeting all other requirements Future Appointments Date Type Provider Dept 04/18/23 Appointment Hoang Trujillo PAC [email or web address] Showing future appointments within next 90 [...] 03/29/22 Office Visit Barbie Orellana APRN, PAULETTE [facility] Showing recent visits within past 365 days and meeting all other requirements Future Appointments Date Type Provider Dept 04/18/23 Appointment Hoang Trujillo PAC [facility] Showing future appointments within next 90 days and meeting all other requirements documented in this encounter Plan of Treatment Upcoming Encounters Date Type Department Care Team (Late st Contact Info) Description 01/06/2026 8:00 AM PILOT FUEL ENGINEER Lab [facility] [place] [address] [place] [address] [facility] 01/13/2026 9:30 AM PILOT FUEL ENGINEER Office Visit [facility] [place] [address] [facility] [place] [address] Hoang Trujillo PAC [address] [place] [address] documented as of this encounter Visit Diagnoses Not on filedocumented in this encounter Additional Health Concerns Assessment Noted Time PHQ-9 Depression Total Score: 0 12/03/19 21 10:07 AM PILOT FUEL ENGINEER documented as of this encounter Care Teams Dial Painter Relationship Specialty Start Date End Date Barbie Orellana APRN, BARREL RIFLER OPERATOR [address] [place] [address] PCP - General Advanced Practice Nurse 06/05/18 Hoang Trujillo PAC [address] [place] [address] PCP - General Physician Squaring Shear Operator 05/02/23 Bi Wooten APRN, BARREL RIFLER OPERATOR [address] [place] [address] Nurse Practitioner Advanced Practice Nurse 01/09/24 documented as of this encounter
[2025-07-19] MEDS: HYDROcodone/acetaminophen (*CRX) 10-325 MG TABLET 1 TAB PO (16:07)
[2025-07-19 16:12] VITALS: BP 131/80; PULSE 62; RESP 16; TEMP 36.6; O2SAT 100
== END 2025-07-19 16:12 | disposition home or self-care (01) ==
LOC: CHSED 15:33
PROVIDERS: Emergency Provider Emergency Medicine
DX: M54.50 Low back pain, unspecified (principal); E78.5 Hyperlipidemia, unspecified; E03.9 Hypothyroidism, unspecified; Z87.891 Personal history of nicotine dependence
CPT/HCPCS: 72100; 96372; 99283; A9270; J1885